=== PATIENT | male | born 1940 | race Caucasian/White ===

== ENCOUNTER 2024-03-01 11:44 | Outpatient (AMB) | payer MEDICARE, SELFPAY ==
--- NOTE | 2024-03-01 11:47 | HO.NEPHOV_ITS ---
Vital Signs 03/01/24 11:48 Height 5 ft 9 in Weight 220 lb 4 oz BMI 32.5 BP 124/70 Blood Pressure Location Lt brachial Position Sitting Pulse 63 Pulse Source Pulse Oximeter Pulse Oximetry (%) 97 Oxygen Delivery Method Room Air Intake Visit Reasons: DX- CKD/ LVM Physical Therapy Technician Required: No Accompanied by: Spouse Allergies No Known Allergies Allergy (Verified 02/29/24 10:12) HPI Comments Details: I had the privilege of seeing Dav moore chronic kidney disease. He has diabetes mellitus hypertension. His serum creatinine had been around 1.7 which has been steadily going up. He had been started on Jardiance by his physician in [place] in October of 2023 due to worsening renal function. He has no history of malignancy but had a tubular adenoma in the cecum in the past. He is known to have benign prostatic hypertrophy. Does not take any excessive nonsteroidal anti-inflammatories. He has been on PPI for a long time. He takes lisinopril hydrochlorothiazide for his hypertension along with amlodipine. He is known to have proteinuria. He is an ex-smoker. He has no history of abdominal aortic aneurysm. He is on statins for dyslipidemia. He denies any nausea, vomiting, diarrhea, chest pain, shortness of breath, proximal nocturnal dyspnea or orthopnea. He has no orthostatic symptoms. He denies recurrent sinusitis, epistaxis, photosensitivity, new skin rashes, new bone or back pain. He denies any coronary artery disease, congestive heart failure, CVA, PA D or NENA. He is concerned about his decline in her renal functions. He did not have any active complaints at the time of this office visit. [facility] Medical History (Updated 04/12/24 @ 13:06 by Chavo Escobar MD) History of torn meniscus of knee Diverticulitis BPH (benign prostatic hyperplasia) Diabetes Pes planus Esophageal reflux Hypertension Hypercholesteremia Surgical History (Updated 02/29/24 @ 10:12 by Hillary Lancaster MA) History of carpal tunnel surgery History of back surgery Hx of hernia repair History of knee surgery H/O colonoscopy Family History (Updated 03/01/24 @ 11:52 by Hillary Lancaster MA) Mother Diabetes Sister Diabetes Social History (Updated 03/01/24 @ 11:52 by Hillary Lancaster MA) Alcohol intake: current Comment: Very little Patient Tobacco Use Status: Former Tobacco user Review of Systems Const All systems reviewed & are unremarkable except as noted in HPI and below Physical Exam Vital Signs: Last Vital Signs Pulse 63 03/01/24 11:48 BP 124/70 03/01/24 11:48 Pulse Ox 97 03/01/24 11:48 Oxygen Delivery Method Room Air 03/01/24 11:48 BMI result Body Mass Index 32.5 Const General: comfortable and no acute distress Orientation/consciousness: patient oriented x3 HEENT Head: Yes normocephalic Mouth: Normal oral and palatal mucosa present Eyes EOM: EOMs intact bilaterally Neck Neck: Yes supple Resp Auscultation: clear to auscultation bilaterally Cardio Jugular venous distension: no JVD Rate: regular rate GI Palpation (GI): Soft to palpation Auscultation: normal bowel sounds General: Yes no CVA tenderness Back/Spine/Pelvis Back: no CVA tenderness Skin General skin exam: no rashes or lesions noted Neuro General: patient oriented x3 and moves all extremities Extrem General: Yes no pedal edema Results Reviewed Nephrology Results: Sodium 137 mmol/L (135-145) 03/01/24 Potassium 4.5 mmol/L (3.3-5.1) 03/01/24 Chloride 102 mmol/L (96-108) 03/01/24 Carbon Dioxide 28 mmol/L (22-29) 03/01/24 BUN 33 mg/dL (9-16) H 03/01/24 Creatinine 2.06 mg/dL (0.5-1.4) H 03/01/24 Calcium 9.8 mg/dL (8.4-10.2) 03/01/24 Urine Protein Negative mg/dL (Neg-Trace) 03/01/24 Urine Creatinine 61.91 mg/dL 03/01/24 Protein/Creatinin Ratio TNP 03/01/24 Renal US 03/15/24 Assessment & Plan Assessment & Plan (1) CKD (chronic kidney disease) stage 3, GFR 30-59 ml/min: Code(s): N18.30 - Chronic kidney disease, stage 3 unspecified Category: Medical Qualifiers: Chronic kidney disease stage 3 subtype: stage 3b (GFR 30-44) Qualified Code(s): N18.32 - Chronic kidney disease, stage 3b (2) Hypertension: Code(s): I10 - Essential (primary) hypertension Category: Medical Qualifiers: Hypertension type: primary hypertension Qualified Code(s): I10 - Essential (primary) hypertension Plan 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 He has history of benign prostatic hypertrophy. His urine output is good. He has no history of vascular disease. He denies any hematuria, sensorineural deafness or any new systemic symptoms. He has been on AVE-inhibitor and diuretics. His blood sugar control is fair. He has been started on Jardiance and early this year. His serum creatinine has gone up and is close to 2. He does not take any excessive nonsteroidal anti-inflammatories and maintain good hydration. I ordered extensive workup. I did not make any medication changes at this visit. I shall consider doing renal biopsy, if needed as a guided by investigations. All his questions answered. Time spent retrieving data, patient encounter and documentation 49 minutes. Follow-up appointment given. Orders: Orders Protein Creatinine Ratio, Ur 03/01/24 N18.30 - Chronic kidney disease, stage 3 unspecified, I10 - Essential (primary) hypertension UA and rflx microscopic 03/01/24 N18.30 - Chronic kidney disease, stage 3 unspecified, I10 - Essential (primary) hypertension Creatinine 03/01/24 N18.30 - Chronic kidney disease, stage 3 unspecified, I10 - Essential (primary) hypertension Electrolytes 03/01/24 N18.30 - Chronic kidney disease, stage 3 unspecified, I10 - Essential (primary) hypertension Calcium 03/01/24 N18.30 - Chronic kidney disease, stage 3 unspecified, I10 - Essential (primary) hypertension Myeloperoxidase Antibody 03/01/24 N18.30 - Chronic kidney disease, stage 3 unspecified, I10 - Essential (primary) hypertension Anti Glomerular Basement Memb 03/01/24 N18.30 - Chronic kidney disease, stage 3 unspecified, I10 - Essential (primary) hypertension Immunofixation Pnl, Serum 03/01/24 N18.30 - Chronic kidney disease, stage 3 unspecified, I10 - Essential (primary) hypertension US renal BI 03/01/24 N18.30 - Chronic kidney disease, stage 3 unspecified, I10 - Essential (primary) hypertension Immunofixation, Random Urine 03/01/24 N18.30 - Chronic kidney disease, stage 3 unspecified, I10 - Essential (primary) hypertension Blood Urea Nitrogen 03/01/24 N18.30 - Chronic kidney disease, stage 3 unspecified, I10 - Essential (primary) hypertension Anti DNA DS Antibody 03/01/24 N18.30 - Chronic kidney disease, stage 3 unspecified, I10 - Essential (primary) hypertension Proteinase 3 PR3 Antibodies 03/01/24 N18.30 - Chronic kidney disease, stage 3 unspecified, I10 - Essential (primary) hypertension Complement C3 03/01/24 N18.30 - Chronic kidney disease, stage 3 unspecified, I10 - Essential (primary) hypertension Complement C4 03/01/24 N18.30 - Chronic kidney disease, stage 3 unspecified, I10 - Essential (primary) hypertension Phospholipase A2 Receptor Pnl 03/01/24 N18.30 - Chronic kidney disease, stage 3 unspecified, I10 - Essential (primary) hypertension US renal doppler 03/01/24 N18.30 - Chronic kidney disease, stage 3 unspecified, I10 - Essential (primary) hypertension Coding Level of Care Code New Pt Level 4 (37860) Diagnoses Stage 3b chronic kidney disease N18.32 Chronic kidney disease stage 3 subtype: stage 3b (GFR 30-44) Primary hypertension I10 Hypertension type: primary hypertension
[2024-03-01 11:48] VITALS: BP 124/70; PULSE 63; O2SAT 97; BMI 32.5
== END 2024-03-01 12:26 | disposition home or self-care (01) ==
PROVIDERS: PCP Internal Medicine; Visit Provider Internal Medicine Nephrology
DX: N18.32 Chronic kidney disease, stage 3b (principal); I10 Essential (primary) hypertension
CPT/HCPCS: 99204

== ENCOUNTER → 2024-03-01 11:44 | Outpatient (BNVA) | payer MEDICARE, SELFPAY | PROVIDERS: PCP Internal Medicine; Visit Provider Internal Medicine Nephrology | DX: I12.9 Hypertensive chronic kidney disease with stage 1 through stage 4 chronic kidney disease, or unspecified chronic kidney disease (principal); N18.30 Chronic kidney disease, stage 3 unspecified | CPT/HCPCS: 99202 ==

== ENCOUNTER 2024-03-01 12:28 | Outpatient (REF) | payer MEDICARE, SELFPAY ==
[2024-03-01 14:31] LABS: Appearance Urine Clear; Color Urine Yellow; Glucose Urine UA >=1000 mg/dL (Negative); Leukocyte Esterase Urine Negative (Negative); Nitrite Urine Negative (Negative); Specific Gravity - Urine 1.015 (1.005-1.025); UMIC TRIGGER UA YES; Urine Blood Negative (Negative); Urine Ketones Negative (Negative); Urine Protein Negative (Neg-Trace)
[2024-03-01 14:39] LABS: Bacteria Urine None Seen (None Seen); Hyaline Casts Urine 0-2 /LPF (0-2); RBC Urine 0-2 /HPF (0-2); Squamous Epithelial Cell Urine 0-2 /HPF (0-2); WBC Urine 0-5 /HPF (0-5)
[2024-03-01 14:53] LABS: Anion Gap 12 (12-20); Blood Urea Nitrogen 33 mg/dL (9-16); Calcium 9.8 mg/dL (8.4-10.2); Carbon Dioxide 28 mmol/L (22-29); Chloride 102 mmol/L (96-108); Estimated Glomerular Filt Rate 31; Potassium 4.5 mmol/L (3.3-5.1); Sodium 137 mmol/L (135-145)
[2024-03-01 15:26] LABS: Creatinine Urine 61.91 mg/dL; Total Protein Urine Random < 7 mg/dL (<12)
[2024-03-02 12:23] LABS: Complement C3 122 mg/dL
[2024-03-02 20:38] LABS: Anti DNA DS Antibody <1 IU/mL; Anti Glomerular Basement Memb <1.0 AI; Myeloperoxidase Antibody <1.0 AI; Proteinase 3 PR3 Antibodies <1.0 AI
[2024-03-05 12:34] LABS: IgA 162 mg/dL (70-320); IgG 626 mg/dL (600-1540); IgM 27 mg/dL (50-300)
[2024-03-07 19:49] LABS: Phospholipase A2 IgG ELISA <4 RU/mL; Phospholipase A2 IgG IFA NEGATIVE (NEGATIVE)
== END 2024-03-01 12:29 | disposition home or self-care (01) ==
LOC: HO.HKASLDS 12:28
PROVIDERS: Visit Provider Internal Medicine Nephrology
DX: I12.9 Hypertensive chronic kidney disease with stage 1 through stage 4 chronic kidney disease, or unspecified chronic kidney disease (principal); N18.30 Chronic kidney disease, stage 3 unspecified
CPT/HCPCS: 80051; 81001; 82310; 82565; 82570; 82784; 83520; 84156; 84520; 86021; 86160; 86225; 86255; 86334; 86335

== ENCOUNTER 2024-03-15 07:40 | Outpatient (REF) | payer MEDICARE, SELFPAY ==
--- NOTE | ~2024-03-15 | US_ITS ---
EXAMINATION: ULTRASOUND RENAL WITH DOPPLER CLINICAL INFORMATION: Chronic renal disease and hypertension. COMPARISON: None. TECHNIQUE: Real-time grayscale, color Doppler, and duplex Doppler evaluation of the kidneys and renal vasculature was performed. FINDINGS: RENAL MEASUREMENTS: Right: 10.5 x 5.4 x 6.1 cm (Sag x AP x TV) Left: 11.9 x 5.8 x 4.8 cm (Sag x AP x TV) Cortical thinning bilaterally. Simple cysts in the lower pole left kidney measuring up to 1.7 cm. No imaging follow-up is recommended. No nephrolithiasis. No hydronephrosis. DOPPLER INTERROGATION: AORTA: Mid aorta: 88 cm/sec RIGHT MAIN RENAL ARTERY: Proximal: 91 cm/sec Mid: 165 cm/sec Distal: 124 cm/sec LEFT MAIN RENAL ARTERY: Proximal: 98 cm/sec Mid: 127 cm/sec Distal: 150 cm/sec RENAL-AORTIC RATIO (RAR): Right: 1.9 Left: 1.7 SEGMENTAL RESISTIVE INDICES: Right: 0.72-0.85 Left: 0.69-0.81 RENAL VEINS: Right: Patent with normal waveform. Left: Patent with normal waveform. US/US renal BI IMPRESSION: No evidence of hemodynamically significant renal artery stenosis. Cortical thinning bilaterally. Elevated resistive indices consistent with chronic medical renal disease. No hydronephrosis.
--- NOTE | ~2024-03-15 | US_ITS ---
EXAMINATION: ULTRASOUND RENAL WITH DOPPLER CLINICAL INFORMATION: Chronic renal disease and hypertension. COMPARISON: None. TECHNIQUE: Real-time grayscale, color Doppler, and duplex Doppler evaluation of the kidneys and renal vasculature was performed. FINDINGS: RENAL MEASUREMENTS: Right: 10.5 x 5.4 x 6.1 cm (Sag x AP x TV) Left: 11.9 x 5.8 x 4.8 cm (Sag x AP x TV) Cortical thinning bilaterally. Simple cysts in the lower pole left kidney measuring up to 1.7 cm. No imaging follow-up is recommended. No nephrolithiasis. No hydronephrosis. DOPPLER INTERROGATION: AORTA: Mid aorta: 88 cm/sec RIGHT MAIN RENAL ARTERY: Proximal: 91 cm/sec Mid: 165 cm/sec Distal: 124 cm/sec LEFT MAIN RENAL ARTERY: Proximal: 98 cm/sec Mid: 127 cm/sec Distal: 150 cm/sec RENAL-AORTIC RATIO (RAR): Right: 1.9 Left: 1.7 SEGMENTAL RESISTIVE INDICES: Right: 0.72-0.85 Left: 0.69-0.81 RENAL VEINS: Right: Patent with normal waveform. Left: Patent with normal waveform. US/US renal doppler IMPRESSION: No evidence of hemodynamically significant renal artery stenosis. Cortical thinning bilaterally. Elevated resistive indices consistent with chronic medical renal disease. No hydronephrosis.
== END 2024-03-15 07:41 | disposition home or self-care (01) ==
LOC: HO.US 07:40
PROVIDERS: Visit Provider Internal Medicine Nephrology
DX: I12.9 Hypertensive chronic kidney disease with stage 1 through stage 4 chronic kidney disease, or unspecified chronic kidney disease (principal); N18.30 Chronic kidney disease, stage 3 unspecified
CPT/HCPCS: 76775; 93975

== ENCOUNTER 2024-04-12 13:37 | Outpatient (AMB) | payer MEDICARE, SELFPAY ==
--- NOTE | 2024-04-12 13:04 | HO.NEPHOV ---
Vital Signs 04/12/24 13:42 Height 5 ft 9 in Weight 221 lb 4 oz BMI 32.7 BP 122/64 Blood Pressure Location Lt brachial Position Sitting Pulse 75 Pulse Source Pulse Oximeter Pulse Oximetry (%) 97 Oxygen Delivery Method Room Air Intake Visit Reasons: 5 wks follow up/ Conf Auto Detailer Required: No Accompanied by: Spouse Allergies No Known Allergies Allergy (Verified 04/12/24 13:45) HPI Comments Details: I had the privilege of seeing Dav in follow-up of his chronic kidney disease and hypertension. He has diabetes mellitus . His serum creatinine had been around 1.7 which has been steadily going up. He had been started on Jardiance by his physician in [place] in October of 2023 due to worsening renal function. He has no history of malignancy but had a tubular adenoma in the cecum in the past. He is known to have benign prostatic hypertrophy. Does not take any excessive nonsteroidal anti-inflammatories. He has been on PPI for a long time. He takes lisinopril - hydrochlorothiazide for his hypertension along with amlodipine. He is known to have proteinuria. He is an ex-smoker. He has no history of abdominal aortic aneurysm. He is on statins for dyslipidemia. He denies any nausea, vomiting, diarrhea, chest pain, shortness of breath, proximal nocturnal dyspnea or orthopnea. He has no orthostatic symptoms. He denies recurrent sinusitis, epistaxis, photosensitivity, new skin rashes, new bone or back pain. He denies any coronary artery disease, congestive heart failure, CVA, PA D or NENA. He is concerned about his decline in her renal functions. He did not have any active complaints at the time of this office visit [facility] Medical History (Updated 04/12/24 @ 13:18 by Chavo Escobar MD) History of torn meniscus of knee Diverticulitis BPH (benign prostatic hyperplasia) Diabetes Pes planus Esophageal reflux Hypertension Hypercholesteremia Surgical History History of carpal tunnel surgery History of back surgery Hx of hernia repair History of knee surgery H/O colonoscopy Family History Mother Diabetes Sister Diabetes Social History Alcohol intake: current Comment: Very little Patient Tobacco Use Status: Former Tobacco user Review of Systems Const All systems reviewed & are unremarkable except as noted in HPI and below Physical Exam Vital Signs: Last Vital Signs Pulse 75 04/12/24 13:42 BP 122/64 04/12/24 13:42 Pulse Ox 97 04/12/24 13:42 Oxygen Delivery Method Room Air 04/12/24 13:42 BMI result Body Mass Index 32.7 Const General: comfortable and no acute distress Orientation/consciousness: patient oriented x3 HEENT Head: Yes normocephalic Mouth: Normal oral and palatal mucosa present Eyes EOM: EOMs intact bilaterally Neck Neck: Yes supple Resp Auscultation: clear to auscultation bilaterally Cardio Jugular venous distension: no JVD Rate: regular rate GI Palpation (GI): Soft to palpation Auscultation: normal bowel sounds General: Yes no CVA tenderness Back/Spine/Pelvis Back: no CVA tenderness Skin General skin exam: no rashes or lesions noted Neuro General: patient oriented x3 and moves all extremities Extrem General: Yes no pedal edema Results Reviewed Nephrology Results: Sodium 137 mmol/L (135-145) 03/01/24 Potassium 4.5 mmol/L (3.3-5.1) 03/01/24 Chloride 102 mmol/L (96-108) 03/01/24 Carbon Dioxide 28 mmol/L (22-29) 03/01/24 BUN 33 mg/dL (9-16) H 03/01/24 Creatinine 2.06 mg/dL (0.5-1.4) H 03/01/24 Calcium 9.8 mg/dL (8.4-10.2) 03/01/24 Urine Protein Negative mg/dL (Neg-Trace) 03/01/24 Urine Creatinine 61.91 mg/dL 03/01/24 Protein/Creatinin Ratio TNP 03/01/24 Renal US 03/15/24 Assessment & Plan Assessment & Plan (1) CKD stage 3b, GFR 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 He has history of benign prostatic hypertrophy. His urine output is good. He has no history of vascular disease. He denies any hematuria, sensorineural deafness or any new systemic symptoms. He has been on AVE-inhibitor and diuretics. His blood sugar control is fair. He has been started on Jardiance and early this year. His serum creatinine has gone up and is close to 2. He does not take any excessive nonsteroidal anti-inflammatories and maintain good hydration. His extensive workup had been done yielding. I reduced his losartan to 50 mg and can c/w current hydrochlorothiazide. I may have to switch his amlodipine to nifedipine if his BP goes up. I shall increase in Jardiance and D/C metformin if possible. I did not make any other medication changes at this visit. I shall do a 24 urine collection for creatinine clearance in the next subsequent visits. All his questions answered. Follow-up appointment given. Orders: Orders Electrolytes Today I10 - Essential (primary) hypertension, N18.32 - Chronic kidney disease, stage 3b, N28.1 - Cyst of kidney, acquired Creatinine Today I10 - Essential (primary) hypertension, N18.32 - Chronic kidney disease, stage 3b, N28.1 - Cyst of kidney, acquired Blood Urea Nitrogen Today I10 - Essential (primary) hypertension, N18.32 - Chronic kidney disease, stage 3b, N28.1 - Cyst of kidney, acquired Medications: New hydrochlorothiazide 12.5 mg PO DAILY 30 tabs 4RF losartan 50 mg PO DAILY 30 tabs 6RF Coding Level of Care Code Est Pt Level 4 (58500) Diagnoses CKD stage 3b, GFR 30-44 ml/min N18.32 Primary hypertension I10 Hypertension type: primary hypertension Renal cyst N28.1
[2024-04-12 13:42] VITALS: BP 122/64; PULSE 75; O2SAT 97; BMI 32.7
== END 2024-04-12 14:18 | disposition home or self-care (01) ==
PROVIDERS: PCP Internal Medicine; Visit Provider Internal Medicine Nephrology
DX: N18.32 Chronic kidney disease, stage 3b (principal); I10 Essential (primary) hypertension; N28.1 Cyst of kidney, acquired
CPT/HCPCS: 99214

== ENCOUNTER → 2024-04-12 13:37 | Outpatient (BNVA) | payer MEDICARE, SELFPAY | PROVIDERS: PCP Internal Medicine; Visit Provider Internal Medicine Nephrology | DX: I12.9 Hypertensive chronic kidney disease with stage 1 through stage 4 chronic kidney disease, or unspecified chronic kidney disease (principal); N18.32 Chronic kidney disease, stage 3b; N28.1 Cyst of kidney, acquired | CPT/HCPCS: 99212 ==

== ENCOUNTER 2024-05-08 10:24 | Outpatient (REF) | payer MEDICARE, SELFPAY ==
[2024-05-08 18:09] LABS: Appearance Urine Clear; Color Urine Yellow; Glucose Urine UA >=1000 mg/dL (Negative); Leukocyte Esterase Urine Negative (Negative); Nitrite Urine Negative (Negative); PH 6.5 (5.0-9.0); UMIC TRIGGER UA YES; Urine Blood Negative (Negative); Urine Ketones Negative (Negative); Urine Protein Negative (Neg-Trace)
[2024-05-08 18:14] LABS: Bacteria Urine None Seen (None Seen); Hyaline Casts Urine 0-2 /LPF (0-2); RBC Urine 0-2 /HPF (0-2); Squamous Epithelial Cell Urine 0-2 /HPF (0-2); WBC Urine 0-5 /HPF (0-5)
[2024-05-08 18:15] LABS: Anion Gap 12 (12-20); Blood Urea Nitrogen 34 mg/dL (9-16); Carbon Dioxide 26 mmol/L (22-29); Chloride 106 mmol/L (96-108); Estimated Glomerular Filt Rate 34; Potassium 4.3 mmol/L (3.3-5.1); Sodium 140 mmol/L (135-145)
== END 2024-05-08 10:25 | disposition home or self-care (01) ==
LOC: HO.HKASLDS 10:24
PROVIDERS: Visit Provider Internal Medicine Nephrology
DX: I12.9 Hypertensive chronic kidney disease with stage 1 through stage 4 chronic kidney disease, or unspecified chronic kidney disease (principal); N18.32 Chronic kidney disease, stage 3b; N28.1 Cyst of kidney, acquired
CPT/HCPCS: 36415; 80051; 81001; 82565; 84520

== ENCOUNTER 2024-05-24 14:39 | Outpatient (AMB) | payer MEDICARE, SELFPAY ==
[2024-05-24 15:11] VITALS: BP 122/60; PULSE 71; O2SAT 96; BMI 32.2
--- NOTE | 2024-05-24 15:11 | HO.NEPHOV_ITS ---
Vital Signs 05/24/24 15:11 Height 5 ft 9 in Weight 218 lb 4 oz BMI 32.2 BP 122/60 Blood Pressure Location Lt brachial Position Sitting Pulse 71 Pulse Source Pulse Oximeter Pulse Oximetry (%) 96 Oxygen Delivery Method Room Air Intake Visit Reasons: 1 mon follow up/CONF French Binding Folder Required: No Accompanied by: Spouse Allergies No Known Allergies Allergy (Verified 05/24/24 15:13) HPI Comments Details: I had the privilege of seeing Dav in follow-up of his chronic kidney disease and hypertension. He has diabetes mellitus . His serum creatinine had been around 1.7 which has been steadily going up. He had been started on Jardiance by his physician in [place] in October of 2023 due to worsening renal function. He has no history of malignancy but had a tubular adenoma in the cecum in the past. He is known to have benign prostatic hypertrophy. Does not take any excessive nonsteroidal anti-inflammatories. He has been on PPI for a long time. He takes lisinopril - hydrochlorothiazide for his hypertension along with amlodipine. He is known to have proteinuria. He is an ex-smoker. He has no history of abdominal aortic aneurysm. He is on statins for dyslipidemia. He denies any nausea, vomiting, diarrhea, chest pain, shortness of breath, proximal nocturnal dyspnea or orthopnea. He has no orthostatic symptoms. He denies recurrent sinusitis, epistaxis, photosensitivity, new skin rashes, new bone or back pain. He denies any coronary artery disease, congestive heart failure, CVA, PA D or NENA. He did not have any active complaints at the time of this office visit [facility] Medical History (Updated 04/12/24 @ 13:18 by Chavo Escobar MD) History of torn meniscus of knee Diverticulitis BPH (benign prostatic hyperplasia) Diabetes Pes planus Esophageal reflux Hypertension Hypercholesteremia Surgical History History of carpal tunnel surgery History of back surgery Hx of hernia repair History of knee surgery H/O colonoscopy Family History Mother Diabetes Sister Diabetes Social History Alcohol intake: current Comment: Very little Patient Tobacco Use Status: Former Tobacco user Review of Systems Const All systems reviewed & are unremarkable except as noted in HPI and below Physical Exam Vital Signs: Last Vital Signs Pulse 71 05/24/24 15:11 BP 122/60 05/24/24 15:11 Pulse Ox 96 05/24/24 15:11 Oxygen Delivery Method Room Air 05/24/24 15:11 BMI result Body Mass Index 32.2 Const General: comfortable and no acute distress Orientation/consciousness: patient oriented x3 HEENT Head: Yes normocephalic Mouth: Normal oral and palatal mucosa present Eyes EOM: EOMs intact bilaterally Neck Neck: Yes supple Resp Auscultation: clear to auscultation bilaterally Cardio Jugular venous distension: no JVD Rate: regular rate GI Palpation (GI): Soft to palpation Auscultation: normal bowel sounds General: Yes no CVA tenderness Back/Spine/Pelvis Back: no CVA tenderness Skin General skin exam: no rashes or lesions noted Neuro General: patient oriented x3 and moves all extremities Results Reviewed Nephrology Results: Sodium 140 mmol/L (135-145) 05/08/24 Potassium 4.3 mmol/L (3.3-5.1) 05/08/24 Chloride 106 mmol/L (96-108) 05/08/24 Carbon Dioxide 26 mmol/L (22-29) 05/08/24 BUN 34 mg/dL (9-16) H 05/08/24 Creatinine 1.88 mg/dL (0.5-1.4) H 05/08/24 Calcium 9.8 mg/dL (8.4-10.2) 03/01/24 Urine Protein Negative mg/dL (Neg-Trace) 05/08/24 Urine Creatinine 61.91 mg/dL 03/01/24 Protein/Creatinin Ratio TNP 03/01/24 Renal US 03/15/24 Assessment & Plan Assessment & Plan (1) Renal cyst: Code(s): N28.1 - Cyst of kidney, acquired Category: Medical (2) CKD (chronic kidney disease) stage 3, GFR 30-59 ml/min: Code(s): N18.30 - Chronic kidney disease, stage 3 unspecified Category: Medical Qualifiers: Chronic kidney disease stage 3 subtype: stage 3b (GFR 30-44) Qualified Code(s): N18.32 - Chronic kidney disease, stage 3b (3) Hypertension: Code(s): I10 - Essential (primary) hypertension Category: Medical Qualifiers: Hypertension type: primary hypertension Qualified Code(s): I10 - Essential (primary) hypertension Kira Demarco has proteinuric 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 He has history of benign prostatic hypertrophy. His urine output is good. He has no history of vascular disease. He denies any hematuria, sensorineural deafness or any new systemic symptoms. He has been on AVE-inhibitor and diuretics. His blood sugar control is fair. He is on Jardiance and early this year. His serum creatinine had gone up to 2. He does not take any excessive nonsteroidal anti- inflammatories and maintain good hydration. His extensive workup had been done yielding. I reduced his losartan to 50 mg and can c/w current hydrochlorothiazide. I did not make any other medication changes at this visit. I shall do a 24 urine collection for creatinine clearance in the next subsequent visits. All his questions answered. Follow-up appointment given Orders: Orders Creatinine Today I10 - Essential (primary) hypertension, N18.32 - Chronic kidney disease, stage 3b, N28.1 - Cyst of kidney, acquired Electrolytes Today I10 - Essential (primary) hypertension, N18.32 - Chronic kidney disease, stage 3b, N28.1 - Cyst of kidney, acquired Blood Urea Nitrogen Today I10 - Essential (primary) hypertension, N18.32 - Chronic kidney disease, stage 3b, N28.1 - Cyst of kidney, acquired Coding Level of Care Code Est Pt Level 4 (53142) Diagnoses Renal cyst N28.1 Stage 3b chronic kidney disease N18.32 Chronic kidney disease stage 3 subtype: stage 3b (GFR 30-44) Primary hypertension I10 Hypertension type: primary hypertension
== END 2024-05-24 15:47 | disposition home or self-care (01) ==
PROVIDERS: PCP Internal Medicine; Visit Provider Internal Medicine Nephrology
DX: N28.1 Cyst of kidney, acquired (principal); N18.32 Chronic kidney disease, stage 3b; I10 Essential (primary) hypertension
CPT/HCPCS: 99214

== ENCOUNTER → 2024-05-24 14:39 | Outpatient (BNVA) | payer MEDICARE, SELFPAY | PROVIDERS: PCP Internal Medicine; Visit Provider Internal Medicine Nephrology | DX: I12.9 Hypertensive chronic kidney disease with stage 1 through stage 4 chronic kidney disease, or unspecified chronic kidney disease (principal); N18.30 Chronic kidney disease, stage 3 unspecified; N28.1 Cyst of kidney, acquired | CPT/HCPCS: 99212 ==

== ENCOUNTER 2025-01-01 11:05 | Outpatient (REF) | payer MEDICARE, SELFPAY ==
--- OUTSIDE RECORDS SUMMARY | 2025-01-01 13:38 | XMS_ITS | Encounter Summary ---
Author Name [facility] [place] [facility] [place] Address [address] [place] [address] Care Team Providers Care Housing Quality Standard Inspector Name Role Phone ANDERS MCCORMICK Primary Care Provider UnavailCARI Nevarez Primary Care Provider Annette riggs Insurance Providers: All historical and current Section Date Range: From patient's date of to the date document was created. This section includes the names of all active insurance providers for the patient. Insurance Provider Type of Coverage Plan Name Start of Policy Coverage End of Policy Coverage Group Number Member ID Insurance Provider's Telephone Number Policy Paniagua's Name Patient's Relationship to Policy [place] [employer] [place] [employer]CR ([facility]) Oct 20, 2009 MEDICAR E ADV [id number] Ry SEGURA PATIENT [facility] ([facility]) MEDICARE ADVANTAGE MCR ([facility]) Oct 20, 2009 [id number] Ry SEGURA PATIENT Selected Encounter This section includes the information on record at [place] for the Encounter. Date/Time Encounter Type Encounter Description Reason Provider Source Dec 26, 2024 09:00 AM OFFICE O/P EST LOW 20 MIN PODIATRY ICD-10-CM L60.3 Nail dystrophy URVASHI GOMEZ Encounter Template Text not used by VA Assessments - Encounter Diagnoses This section includes the primary and secondary diagnoses documented for the Encounter. Date/Time Primary/Secondary Diagnosis Diagnosis Name Provider Source Dec 26, 2024 09:37 AM PRIMARY Nail dystrophy URVASHI GOMEZ [place] Dec 26, 2024 09:37 AM SECONDARY Ingrowing nail URVASHI GOMEZ [place] Dec 26, 2024 09:37 AM SECONDARY Pain in left toe(s) URVASHI GOMEZ [place] Dec 26, 2024 09:37 AM SECONDARY Pain in right toe(s) URVASHI GOMEZ [place] Dec 26, 2024 09:37 AM SECONDARY Type 2 diabetes w diabetic peripheral angiopath w/o gangrene URVASHI GOMEZ [place] Plan of Treatment: Future Appointments (+ 6 months) and Future Tests (+/- 45 days) The Plan of Treatment section includes future care activities for the patient from all [place] [facility] This section includes future appointments and future orders which are active, pending or scheduled. Future Appointments This section includes appointments that were scheduled to occur 6 months from the date of the Encounter, up to a maximum of 20 appointments. The data comes from all [place] treatment facilities. Appointment Date/Time Appointment Type Appointme nt Facility Name Dec 31, 2024 09:00 AM AMBULATORY - MEDICINE [facility] Jan 16, 2025 09:00 AM AMBULATORY - MEDICINE [facility] May 01, 2025 09:00 AM AMBULATORY - MEDICINE [facility] Social History: Smoking Status (Most current) and Tobacco Use (All prior to encounter date) This section includes the most current, and the historical, smoking and tobacco- related health factors from the [place] facility where the Encounter took place. Current Smoking Status This section includes the most current smoking, or tobacco-related health factor, from the [place] facility where the Encounter took place. Date/Time Current Smoking Status Comment Lindsey grijalva Jan 12, 2024 10:00 AM VA-TOBACCO NEVER USED [place] Tobacco Use History This section includes a history of the smoking, or tobacco-related health factors, that were collected on or before the date of the Encounter. The data comes from the [place] facility where the Encounter took place. Date/Time Smoking Status/Tobacco Use Comment F [facility] Jul 07, 2022 10:00 AM VA-TOBACCO FORMER USER [place] Jul 07, 2022 10:00 AM [place]-TO[place]ACCO QUIT 15 YRS OR MORE [place] Jul 07, 2021 01:30 PM VA-TOBACCO FORMER USER [place] Jul 07, 2021 01:30 PM [place]-TO[place]ACCO QUIT 15 YRS OR MORE [place] Apr 13, 2019 04:47 PM VA-TOBACCO FORMER USER [place] Apr 13, 2019 04:47 PM VA-TOBACCO QUIT 15 YRS OR MORE [place] May 05, 2018 05:56 AM QUIT TOBACCO USE > 7 YEARS AGO Quit in [place] Advance Directives: All historical and current Section Date Range: From patient's date of to the date document was created. This section includes ALL of a patient's completed or amended [place] Advance and Rescinded Directives. The entries below indicate that a directive exists for the patient, but an actual copy is not included with this document. The data comes from all [place] facilities. Date Advance Directives Provider Source Apr 26, [address] [facility] Radiology Reports: +/- 30 days of the encounter Radiology Reports For cases when an order for radiology services may have been completed prior to the date of the Encounter, the report list includes the Radiology Reports that were completed up to 30 days before dateof the Encounter. For cases when an order for radiology services may have been completed after the date of the Encounter, the report list also includes the Radiology Reports that were completed up to30 days after date of the Encounter. The data comes from all [place] treatment facilities. Date/Time Radiology Report Provider Source Dec 04, 2024 05:29 PM MRI ANKLE (RIGHT) WITHOUT CONTRAST: EMILY SEGURA [id number] M Exm Date: DEC 04, 2024@17:29 Req Phys: EMILY YOUNG Pat Loc: [facility] PODIATRY NAIL BOROUGH COORDINATOR (Req'g L Img Loc: [facility] Service: [place] [address] (Case [id number] COMPLETE) MRI ANKLE (RIGHT) WITHOUT CONTRAS(MRI Detailed) CPT:46779 Proc Modifiers : RIGHT Reason for Study: ankle pain Clinical History: Report Status: Verified Date Reported: DEC 14, 2024 Date Verified: DEC 14, 2024 Biophysics Scientist E-Sig:/ES/Yash Woodruff MD Report: MRI right ankle Multiplanar spin-echo pulse sequences were performed to the right ankle Impression: Marker ramirez site patient's symptoms posterior medially right ankle Examination limited by motion artifact. Subcutaneous edema is seen at the soft tissues of the visualized right ankle. Anterior and posterior tibiofibular and talofibular ligaments intact. Disruption calcaneofibular ligament. Tibialis posterior flexor digitorum longus and hallucis longus tendons intact. Intact peroneus longus and brevis tendons. Deltoid ligament intact. Mild degenerative changes seen. No fracture Pes planus deformity. Small plantar calcaneal spur. Plantar fascia unremarkable. Achilles tendon unremarkable. Mild bone marrow edema is seen involving the tarsal sinus. Primary Diagnostic Code: NO ALERT REQUIRED Primary Interpreting Staff: Yash Woodruff MD, Radiologist (Biophysics Scientist) /YASH SCHULTZ MD [facility] Encounter Notes: All associated encounter notes This section contains the clinical notes associated to the Encounter. Date/Time Encounter Note(s) Provider Source Dec 26, 2024 09:00 AM PODIATRY NOTE: LOCAL TITLE: PODIATRY NOTE STANDARD TITLE: PODIATRY NOTE DATE OF NOTE: DEC 26, 2024@09:00 ENTRY DATE: DEC 26, 2024@09:00:07 AUTHOR: URVASHI GOMEZ EXP COSIGNER: URGENCY: STATUS: COMPLETED NOTE: HAS RECEIVED BOTH COVID VACCINE DOSES + 2 BOOSTERS AT [facility] LAST SEEN FOR TREATMENT: 06/06/2024 S: Pt. is an 84 yo alert WDWN CAUC MALE who is seen for continued podiatric examination & care for treatment of a presenting complaint of an area that has been intermittently infected and points to the medial nail border-proximal nail groove RT GREAT TOE. Onset of symptoms has been several days due to this being a recent condition that has not been evaluated. Duration of symptoms is intermittent with periods of exacerbation and remission. Description of symptoms is of an sharp radiating nature. Contributing factors are: Unknown but may be related to shoes and increased activity. *DENIES ANY RECENT CHANGES IN MEDS UPON QUESTIONING TODAY- SEE RECONCILIATION PERFORMED THIS DATE BELOW DENIES TOBACCO *NOTE: A1C= 6.4 (LAST TAKEN: 09/2022) FBS=DNP RISK =2 HEIGHT:245.2 lb [111.5 kg] (04/26/2017 15:10) WEIGHT:67.75 in [172.1 cm] (04/26/2017 15:10) PMH: Active problems - Computerized Problem List is the source for the following: NOTE: REVIEWED ABOVE NOTING NO CHANGES SINCE PREVIOUS VISIT(TYPE II DM) *PLEASE SEE PROBLEM LIST TEMPLATE FOR COMPLETE LIST NEEDED. O: There are no gross LE changes in status other than an increased looseness at the STJ & TNJ RT which is correctable BUT would need a brace as well as custom orthoses. SKIN COLOR AND TEXT ARE WNL AND TEMP IS DIMINISHED WARM TO COOL PROXIMAL TO DISTAL. THERE ARE NO PAINFUL HYPERKERATOSIS NOTED AT THIS TIME. NAILS IN NEED OF ATTENTION : 1-2-3-4-5 BILATERAL VASCULAR: DP & PT PULSES ARE ABSENT NON-PALPABLE BILATERAL. CFT IS <3 SEC X 10. THERE ARE NO VARICES NOTED BUT THERE IS +3 EDEMA MUSCULOSKELETAL: Exam reveals muscle strength and tone to be equal & symmetrical bilaterally & diminished -ESPECIALLY RIGHT WITH A LIGAMENTOUS LAXITY PTT for an individual of this age and present physical-medical condition. There is pain free ROM at all joints distal to and including the ankle OTHER THAN AT THE NAVICULAR WHICH IS LOOSE . 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 NEUROLOGICAL: Exam reveals S/D, vibratory, light touch & proprioception sensations to be equal & symmetrical bilaterally & WNL for an individual of this age and present physical-medical status. Protective sensation utilizing a Nekoma-Yash lOg monofilament is 10/10 bilateral. A: Clinical Impression is a painful ONYCHOCRYPTIC NAILS(2-3-4-5 BILAT & DYSTROPHIC HALLUX NAILS BILAT) IN THE PRESENCE OF DM-PVD AND PAIN WHICH IS 2- 3/10 PRIOR TO TREATMENT & 0/10 AFTER.SPECIAL ATTENTION LATERAL LEFT HALLUX NAIL SPICULE REMOVAL P: Treatment consists of trimming-reduction of all nails via manual and electric means with excision of the offending nail borders and thinning of the nail plates to the point of imminent bleeding and special attention to MEDIAL LT HALLUX NAIL BORDER. DEBRIDEMENT-REDUCTION OF DYSTROPHIC HALLUX NAIL SBILAT REVIEWED HOME FOOT CARE FEET ARE IN EXCELLENT CONDITION AND I PROVIDED HIM WITH WRITTEN RECOMMENDATIONS FOR FOOT CARE TO BE REVIEWED AT HOME (FOOT CARE TIPS). *DISCUSSED NEW PROTOCOLS AND CALLED [facility] TODAY FOR RESCHEDULING RTC: 05/01/@ 9AM) I DISCUSSED THE FINDINGS & PLAN WITH PATIENT (UNCHANGED SINCE PREVIOUS VISIT) & PATIENT AGREES AND UNDERSTANDS PLAN-RECEIVED MIRROR ATEMPTED TO DISPENSE SHOES 12XEEEE AND WERE TOO NARROW AND SHALL RE-ORDER 5E INSTEAD ALSO DISCUSSED HIS [place] RE: RT ANKLE WHICH IS VERY PAINFUL AND I HAVE SUGGESTED THAT HE BE SEEN AT [facility] IN [place] BY DR. CYNDEE MUÑOZ AND HE IS FAMILIAR WITH HIM HE IS A PATIENT THERE AND WILL DISCUSS WITH DR. MCCORMICK RE: REFERRAL. Medication Reconciliation: PERFORMED TODAY - SEE BELOW. Outpatient: Has the patient been taking medications as documented in the EMLR? YES: The patient has been taking medications as documented in the EMLR. Essential Medication List for Review used to complete this medication reconciliation. INCLUDED IN THIS LIST: Alphabetical list of active outpatient prescriptions dispensed from this VA (local) and dispensed from another [place] or DoD facility (remote) as well as inpatient orders (local, pending and active), local clinic medications, locally documented non-VA medications, and local prescriptions that have or been discontinued in the past 90 days. - All changes in medications, including all non-VA/Herbal/OTC medications were entered into CPRS. - If there were any medications the patient should no longer take, they were discontinued. - The patient/caregiver was instructed to update this list, discard old lists, and take this list to the next appointment, whether with a VA or non-VA provider. JLV Link Data on this list may not be complete. Please check [email or web address]. Allergies/ADRs (Tool #5) FACILITY ALLERGY/ADR -------- [facility] No Known Allergies [facility] NO KNOWN ALLERGIES Med Recon NoGlossary (Tool #1) INCLUDED IN THIS LIST: Alphabetical list of active outpatient prescriptions dispensed from this VA (local) and dispensed from another VA or DoD facility (remote) as well as inpatient orders (local pending and active), local clinic medications, locally documented non-VA medications, and local prescriptions that have or been discontinued in the past 90 days. Non-VA Meds Last Documented On: Jul 07, 2021 NOTE The display of VA prescriptions dispensed from another [place] or [facility] facility (remote) is limited to active outpatient prescription entries matched to National Drug File at the originating site and may not include some items such as investigational drugs, compounds, etc. NOT INCLUDED IN THIS LIST: Medications self-entered by the patient into personal health records (i.e. [employer]) are NOT included in this list. Non-VA medications documented outside this [place], remote inpatient orders (regardless of status) and remote clinic medications are NOT included in this list. The patient and provider must always discuss medications the patient is taking, regardless of where the medication was dispensed or obtained. Non-VA ALOGLIPTIN 12.5MG TAB TAKE ONE TABLET BY MOUTH ONCE DAILY Patient wants to buy from Non-[place] pharmacy. Non-VA AMLODIPINE BESYLATE 10MG TAB TAKE ONE TABLET BY MOUTH EVERY DAY filled through [facility] Remote AMLODIPINE BESYLATE 10MG TAB TAKE ONE TABLET BY MOUTH DAILY FOR BLOOD PRESSURE Last Filled: 11/12/24 (Active at [facility]) Rx Expiration Date: 01/17/25 Days Supply: 90 Non-VA ASPIRIN 81MG EC TAB TAKE ONE TABLET BY MOUTH DAILY Patient wants to buy from Non-[place] pharmacy. Remote ATORVASTATIN CA 80MG TAB TAKE ONE TABLET BY MOUTH AT BEDTIME FOR CHOLESTEROL - REPLACES ROSUVASTATIN Last Filled: 11/12/24 (Active at [facility]) Rx Expiration Date: 01/17/25 Days Supply: 90 Non-VA ATORVASTATIN CALCIUM 80MG TAB TAKE ONE TABLET BY MOUTH AT BEDTIME Filled by [facility] Non-VA CYANOCOBALAMIN TAB TAKE BY MOUTH ONCE DAILY Patient wants to buy from Non-[place] pharmacy. Medication prescribed by Non-[place] provider. OUTPT EMPAGLIFLOZIN 25MG TAB (Status = Active) TAKE ONE-HALF TABLET BY MOUTH ONCE DAILY FOR TYPE 2 DIABETES MELLITUS Rx# [id number] Last Released: 10/26/24 Qty/Days Supply: Rx Expiration Date: 04/07/25 Refills Remainin Indication: FOR TYPE 2 DIABETES MELLITUS Non-VA FINASTERIDE 5MG TAB TAKE ONE TABLET BY MOUTH EVERY DAY filled by [facility] OUTPT HYDROCHLOROTHIAZIDE 25MG TAB (Status = Active) TAKE ONE-HALF TABLET BY MOUTH ONCE DAILY FOR HIGH BLOOD PRESSURE Rx# [id number] Last Released: 09/14/24 Qty/Days Supply: Rx Expiration Date: 09/07/25 Refills Remainin Indication: FOR HIGH BLOOD PRESSURE Non-VA KETOCONAZOLE 2% CREAM APPLY A SMALL AMOUNT TOPICALLY ONCE DAILY Patient wants to buy from Non-[place] pharmacy. OUTPT LIDOCAINE 5% PATCH (Status = Active) APPLY 1 PATCH TOPICALLY ONCE DAILY FOR NERVE PAIN (LEAVE PATCH ON FOR 12 HOURS, THEN REMOVE PATCH) Rx# [id number] Last Released: 07/03/24 Qty/Days Supply: Rx Expiration Date: 06/28/25 Refills Remainin Indication: FOR NERVE PAIN OUTPT LOSARTAN 50MG TAB (Status = Active) TAKE ONE TABLET BY MOUTH ONCE DAILY FOR BLOOD PRESSURE/HEART Rx# [id number] Last Released: 12/19/24 Qty/Days Supply: Rx Expiration Date: 09/07/25 Refills Remainin Indication: FOR HIGH BLOOD PRESSURE Non-VA MAGNESIUM OXIDE TAB TAKE BY MOUTH TWICE DAILY Medication prescribed by Non-[place] provider. Non-VA METFORMIN HCL 1000MG TAB TAKE ONE TABLET BY MOUTH TWICE DAILY BEFORE A [facility]AL [facility] Non-VA OMEPRAZOLE 20MG EC CAP TAKE 1 CAPSULE BY MOUTH EVERY MORNING 30 MINUTES BEFORE BREAKFAST Filled by [facility] OUTPT OMEPRAZOLE 20MG EC CAP (Status = Active) TAKE ONE CAPSULE BY MOUTH EVERY MORNING 30 MINUTES BEFORE BREAKFAST FOR HEARTBURN Rx# [id number] Last Released: 12/19/24 Qty/Days Supply: Rx Expiration Date: 12/18/25 Refills Remainin Indication: FOR HEARTBURN SUPPLIES Suicide Screen: C-SSRS Screening [place]-Suicide Severity Rating Scale (C-SSRS Screener) 1. Over the past month, have you wished you were or wished you could go to sleep and not wake up? No 2. Over the past month, have you had any actual thoughts of killing yourself? No 3. Over the past month, have you been thinking about how you might do this? Response not required due to responses to other questions. 4. Over the past month, have you had these thoughts and had some intention of acting on them? Response not required due to responses to other questions. 5. Over the past month, have you started to work out or worked out the details of how to kill yourself? Response not required due to responses to other questions. 6. If yes, at any time in the past month did you intend to carry out this plan? Response not required due to responses to other questions. 7. In your lifetime, have you ever done anything, started to do anything, or prepared to do anything to end your life (for example, collected pills, obtained a gun, gave away valuables, went to the roof but didn't jump)? No 8. If YES, was this within the past 3 months? Response not required due to responses to other questions. /oniel/ URVASHI GOMEZ DPM AUTOMOTIVE SALES MANAGER Signed: 12/26/2024 09:39 URVASHI GOMEZ
--- OUTSIDE RECORDS SUMMARY | 2025-01-01 13:38 | XMS_ITS ---
Author Name [facility] Organization [facility] [place] Address [address] [place] [address] Care Team Providers Care Electroencephalogram Technologist Name Role Phone ANDERS MCCORMICK Primary Care Provider CARI Mohr Primary Care Provider Annette riggs Insurance Providers: [...] [place] [employer] [place] [employer] ADVANTAGE MCR ([facility]) Oct 20, 2009 MEDICAR E ADV [id number] [phone] Ry SEGURA PATIENT [facility] ([facility]) MEDICARE ADVANTAGE MCR ([facility]) Oct 20, 2009 [id number] Ry SEGURA PATIENT Selected Encounter This section includes the information on record at [place] for the Encounter. Date/Time Encounter Type Encounter Description Reason Pro vider Source Jul 09, 2024 12:39 PM Outpatient Encounter ADMIN PAT ACTIVTIES (MASNONCT) IHE Encounter Template Text not used by VA Plan of Treatment: Future Appointments (+ 6 months) and Future Tests (+/- 45 days) The Plan of Treatment section includes future care activities for the patient from all VA treatmentfacilities. This section includes future appointments and future orders which are active, pending or scheduled. Future Appointments This section includes appointments that were scheduled to occur 6 months from the date of the Encounter, up to a maximum of 20 appointments. The data comes from all [facility]. Appointment Date/Time Appointment Type Appointme nt Facility Name Oct 30, 2024 11:00 AM AMBULATORY - MEDICINE [facility] Nov 13, 2024 01:30 PM AMBULATORY - NONE [facility] Nov 21, 2024 12:45 PM AMBULATORY - NONE [facility] Dec 04, 2024 05:30 PM AMBULATORY - NONE [facility] Dec 04, 2024 06:00 PM AMBULATORY - NONE [facility] Dec 26, 2024 09:00 AM AMBULATORY - MEDICINE [facility] Dec 31, 2024 09:00 AM AMBULATORY - MEDICINE [facility] Social History: Smoking Status (Most current) and Tobacco Use (All prior to encounter date) This section includes the most current, and the historical, smoking and tobacco- related health factors from the [place] facility where the Encounter took place. Current Smoking Status This section includes the most current smoking, or tobacco-related health factor, from the [place] facility where the Encounter took place. Date/Time Current Smoking Status [facility] Facility Apr 19, 2017 11:41 AM QUIT TOBACCO USE > 7 YEARS AGO cigarettes quit 40 years ago/ smoked [address] [facility] Advance Directives: All historical and current Section Date Range: From patient's date of to the date document was created. This section includes ALL of a patient's completed or amended VA Advance and Rescinded Directives. The entries below indicate that a directive exists for the patient, but an actual copy is not included with this document. The data comes from all [place] facilities. Date Advance Directives Provider Source Apr 26, 2017 ADVANCE DIRECTIVE LORENE NAVA Encounter Notes: All associated encounter notes This section contains the clinical notes associated to the Encounter. Date/Time Encounter Note(s) Provider Source Jul 09, 2024 12:51 PM ADDENDUM: LOCAL TITLE: Addendum STANDARD TITLE: ADDENDUM DATE OF NOTE: JUL 09, 2024@12:51:07 ENTRY DATE: JUL 09, 2024@12:51:08 AUTHOR: ANDERS MCCORMICK EXP COSIGNER: URGENCY: STATUS: COMPLETED Will need new Rxs for requested meds from his prescriber Dr Bowden in [place]. /oniel/ ANDERS MCCORMICK MD Primary Care Physician Signed: 07/09/2024 12:51 Receipt Acknowledged By: 07/09/2024 13:44 /oniel/ ERIC KEATING RN REGISTERED NURSE --- Original Document --- 07/09/24 V1 PHARMACY CUSTOMER CARE MEDICATION RENEWAL: Date: Jun Division: [facility] referred by Pharmacy Call Center for medication renewal: Non-controlled/maintenance medication Medications requested: [id number]$ HYDROCHLOROTHIAZIDE 25MG TAB [id number]$ LOSARTAN 50MG TAB Defer to primary care provider To be mailed . Please review and renew if appropriate. *This note was generated by [facility] Pharmacy Customer Care. If you have any questions or need assistance, do not contact this author. Please refer all questions to your local, on-site pharmacy departments. /robin KIRK CPhT Medical Assisting Program Director, [place]/Pharmacy Customer Care Signed: 07/09/2024 12:40 Receipt Acknowledged By: 07/09/2024 12:57 /oniel/ ERIC KEATING RN REGISTERED NURSE 07/09/2024 12:50 /oniel/ ANDERS MCCORMICK MD Primary Care Physician 07/09/2024 ADDENDUM STATUS: UNSIGNED You may not VIEW this UNSIGNED Addendum. ANDERS MCCORMICK [facility] Jul 09, 2024 12:39 PM PHARMACY NOTE: LOCAL TITLE: V1 PHARMACY CUSTOMER CARE MEDICATION RENEWAL STANDARD TITLE: PHARMACY NOTE DATE OF NOTE: JUL 09, 2024@12:39 ENTRY DATE: JUL 09, 2024@12:39:59 AUTHOR: ED KIRK EXP COSIGNER: URGENCY: STATUS: COMPLETED V1 PHARMACY CUSTOMER CARE MEDICATION RENEWAL Has ADDENDA Date: Jun Division: [facility] referred by Pharmacy Call Center for medication renewal: Non-controlled/maintenance medication Medications requested: [id number]$ HYDROCHLOROTHIAZIDE 25MG TAB [id number]$ LOSARTAN 50MG TAB Defer to primary care provider To be mailed . Please review and renew if appropriate. *This note was generated by [facility] Pharmacy Customer Care. If you have any questions or need assistance, do not contact this author. Please refer all questions to your local, on-site pharmacy departments. /robin KIRK CPhT Medical Assisting Program Director, [place]armacy Customer Care Signed: 07/09/2024 12:40 Receipt Acknowledged By: 07/09/2024 12:57 /robin KEATING RN REGISTERED NURSE 07/09/2024 12:50 /oniel/ ANDERS MCCORMICK MD Primary Care Physician 07/09/2024 ADDENDUM STATUS: COMPLETED Will need new Rxs for requested meds from his prescriber Dr Bowden in [place]. /oniel/ ANDERS MCCORMICK MD Primary Care Physician Signed: 07/09/2024 12:51 Receipt Acknowledged By: 07/09/2024 13:44 /oniel/ ERIC KEATING RN REGISTERED NURSE 07/09/2024 ADDENDUM STATUS: COMPLETED Spoke with Dr. Luciano Bowden's office and they will fax over new scripts. /robin KEATING RN REGISTERED NURSE Signed: 07/09/2024 13:45 ED KIRK [facility]
--- OUTSIDE RECORDS SUMMARY | 2025-01-01 13:38 | XMS_ITS | Encounter Summary ---
Author Name [facility] [place] [facility] [place] Address [address] [place] [address] Care Team Providers Care Commercial Relief Driver Name Role Phone ANDERS MCCORMICK Primary Care [...] [place] [facility] MEDIC[facility] ADVANT[facility] MCR ([facility]) Oct 20, 2009 MEDICAR E ADV [id number] [phone] Ry SEGURA PATIENT [facility] ([facility]) MEDICARE ADVANTAGE MCR ([facility]) Oct 20, 2009 [id number] Ry SEGURA PATIENT Selected Encounter This section includes the information on record at [place] for the Encounter. Date/Time Encounter Type Encounter Description Reason Pro vider Source Nov 06, 2024 10:19 AM Outpatient Encounter ADMIN PAT ACTIVTIES (MASNONCT) IHE [...] 20 appointments. The data comes from all [place] treatment facilities. Appointment Date/Time Appointment Type Appointme nt Facility Name Nov 13, 2024 01:30 PM AMBULATORY - NONE [facility] Nov 21, 2024 12:45 PM AMBULATORY - NONE [facility] Dec 04, 2024 05:30 PM AMBULATORY - NONE [facility] Dec 04, 2024 06:00 PM AMBULATORY - NONE [facility] Dec 26, 2024 09:00 AM [facility]BULATORY - MEDICINE [facility] Dec 31, 2024 09:00 AM AMBULATORY - MEDICINE [facility] Jan 16, 2025 09:00 AM AMBULATORY - MEDICINE [facility] May 01, 2025 09:00 [facility] Social History: Smoking Status (Most current) and Tobacco Use (All prior to encounter date) This section includes the most current, and the historical, smoking and tobacco- related health factors from the [place] facility where the Encounter took place. Current Smoking Status This section includes the most current smoking, or tobacco-related health factor, from the [place] facility where the Encounter took place. Date/Time Current Smoking Status Comment Lindsey ity Oct 12, 2023 09:30 AM VA-TOBACCO FORMER USER [facility] Tobacco Use History This section includes a history of the smoking, or tobacco-related health factors, that were collected on or before the date of the Encounter. The data comes from the [place] facility where the Encounter took place. Date/Time Smoking Status/Tobacco Use Comment F acility Oct 12, 2023 09:30 AM VA-TOBACCO QUIT 15 YRS OR MORE [facility] Oct 13, 2022 10:30 AM VA-TOBACCO FORMER USER [facility] Oct 13, 2022 10:30 AM VA-TOBACCO QUIT 15 YRS OR MORE [facility] Oct 23, 2021 10:30 AM VA-TOBACCO FORMER USER [facility] Oct 23, 2021 10:30 AM VA-TOBACCO QUIT 15 YRS OR MORE [facility] Jan 14, 2020 08:45 AM VA-TOBACCO FORMER USER [facility] Jan 14, 2020 08:45 AM VA-TOBACCO QUIT 15 YRS OR MORE [facility] Jun 07, 2018 01:13 PM VA-TOBACCO FORMER USER [facility] Jun 07, 2018 01:13 PM VA-TOBACCO QUIT 15 YRS OR MORE [facility] Jan 09, 2018 08:28 AM NON-TOBACCO USER [facility] Jul 08, 2017 08:00 AM NON-TOBACCO USER [facility] Jan 04, 2017 01:56 PM NON-TOBACCO USER [facility] Sep 24, 2016 11:32 AM NON-TOBACCO USER [facility] Jul 20, 2016 10:27 AM NON-TOBACCO USER [facility] Jan 13, 2016 10:59 AM NON-TOBACCO USER [facility] Oct 13, 2015 01:40 PM NON-TOBACCO USER [facility] Jul 22, 2015 11:10 AM NON-TOBACCO USER [facility] Jan 08, 2015 07:47 AM NON-TOBACCO USER [facility] Oct 23, 2014 10:02 AM NON-TOBACCO USER [facility] Sep 30, 2014 11:51 AM NON-TOBACCO USER [facility] Sep 27, 2014 10:51 AM NON-TOBACCO USER [facility] Sep 25, 2014 01:25 PM NON-TOBACCO USER [facility] Jul 19, 2014 11:37 AM NON-TOBACCO USER [facility] Dec 25, 2013 01:23 PM NON-TOBACCO USER [facility] Jul 18, 2013 07:32 AM NON-TOBACCO USER [facility] Dec 08, 2012 02:05 PM NON-TOBACCO USER [facility] Jul 19, 2012 07:17 AM NON-TOBACCO USER [facility] Oct 13, 2011 07:46 AM NON-TOBACCO USER [facility] Jul 19, 2011 09:18 AM NON-TOBACCO USER [facility] Dec 10, 2010 07:38 AM NON-TOBACCO USER [facility] Jul 31, 2010 02:45 PM NON-TOBACCO USER [facility] Nov 17, 2009 01:30 PM NON-TOBACCO USER [facility] Oct 21, 2009 07:41 AM NON-TOBACCO USER [facility] Jul 21, 2009 07:39 AM NON-TOBACCO USER [facility] Dec 20, 2008 12:40 PM NON-TOBACCO USER [facility] Jul 18, 2008 07:23 AM NON-TOBACCO USER [facility] Nov 23, 2007 01:36 PM NON-TOBACCO USER [facility] Advance Directives: All historical and current Section Date Range: From patient's date of to the date document was created. This section includes ALL of a patient's completed or amended VA Advance and Rescinded Directives. The entries below indicate that a directive exists for the patient, but an actual copy is not included with this document. The data comes from all [place] facilities. Date Advance Directives Provider Source Apr 26, 2017 ADVANCE DIRECTIVE LORENE NAVA [facility] Radiology Reports: +/- 30 days of the [...] the Encounter. The data comes from all [place] treatment facilities. Date/Time Radiology Report Provider Source Dec 04, 2024 05:29 PM MRI ANKLE (RIGHT) WITHOUT CONTRAST: EMILY SEGURA [id number] -1940 M Exm Date: DEC 04, 2024@17:29 Req Phys: EMILY YOUNG Pat Loc: [facility] PODI[facility] NAIL REFUSE LABORER (Req'g L Img Loc: [facility] Service: [place] [address] (Case [id number] COMPLETE) MRI ANKLE (RIGHT) WITHOUT CONTRAS(MRI Detailed) CPT:03276 Proc Modifiers : RIGHT Reason for Study: ankle pain Clinical History: Report Status: Verified Date Reported: DEC 14, 2024 Date Verified: DEC 14, 2024 Interactive Media Specialist E-Sig:/ES/Yash Woodruff MD Report: MRI right ankle [...] Primary Interpreting Staff: Yash Woodruff MD, Radiologist (Interactive Media Specialist) /YASH SCHULTZ MD [facility] Encounter Notes: All associated encounter notes This section contains the clinical notes associated to the Encounter. Date/Time Encounter Note(s) Provider Source Nov 06, 2024 10:19 AM ADMINISTRATIVE NOT E: LOCAL TITLE: [facility] ADMINISTRATIVE NOTE STANDARD TITLE: ADMINISTRATIVE NOTE DATE OF NOTE: NOV 06, 2024@10:19 ENTRY DATE: NOV 06, 2024@10:19:30 AUTHOR: LEXI GARZA EXP COSIGNER: URGENCY: STATUS: COMPLETED SELECT MODALITY: MRI OED:10/30/2024 PD/NICANOR:10/30/2024 Was the order scheduled? Yes: 12/04/2024@18:00 Was the patient [place] Act Eligible? No Were the protocol instructions communicated to the patient? Yes [facility] Pre Mri Cl Scrn Pm Bl 12/04/2024@17:30 Non-count [facility] Mri 1.5t Night Bldg 2 12/04/2024@18:00 Non-count No prior surgery, No implants, No other metal (shrapnel, gunshot) Pt understood to arrive 30 mins prior to exam. Pre-appt letter sent. Pt is not claustrophobic /oniel/ LEXI GARZA Signed: 11/06/2024 10:20 LEXI GARZA [facility]
--- OUTSIDE RECORDS SUMMARY | 2025-01-01 13:38 | XMS_ITS | Encounter Summary ---
Author Organization [facility] Address [address] [place] [address] Phone Care Team Providers Care Pellet Press Operator Name Role Phone Luciano Bowden MD Primary Care Provider Encounter Details Date Type Department Care Team (Late st Contact Info) Description 02/06/2024 Documentation Only [facility], [address] [place] [address] Flora [place], [place] [address] [place] [address] Social History Tobacco Use Types Packs/Day Years Used Date Smoking Tobacco: Never Assessed Sex and Gender Information Value Date Recorded Sex Assigned at Not on file Legal Sex Male 3:21 PM EDT Gender Identity Not on file Sexual Orientation Not on file documented as of this encounter Plan of Treatment Not on file documented as of this encounter Visit Diagnoses Not on filedocumented in this encounter Care Teams Pellet Press Operator Relationship Specialty Start Date End Date Luciano Bowden MD [address] PCP - General Internal Medicine 02/06/24 documented as of this encounter
--- OUTSIDE RECORDS SUMMARY | 2025-01-01 13:38 | XMS_ITS | Encounter Summary ---
Author Name [facility] of Veter[facility] ([place]) Organization [facility] [place] [place] Address [address] [place] [address] Care Team Providers Care Ball Racker Name Role Phone ANDERS MCCORMICK Primary Care [...] [place] [facility] MEDIC[facility] ADVANT[facility] MCR ([facility]) Oct 20, 2009 MEDICAR E ADV [id number] Ry SEGURA PATIENT [facility] ([facility]) MEDICARE ADVANTAGE MCR ([facility]) Oct 20, 2009 [id number] Ry SEGURA PATIENT Selected Encounter This section includes the information on record at [place] for the Encounter. Date/Time Encounter Type Encounter Description Reason Provider Source Dec 31, 2024 09:00 AM DIABETIC CUSTOM MOLDED SHOE PODIATRY ICD-10-CM M14.671 Charcot's joint, right ankle and foot MORIAH VAZQUEZ Encounter Template Text not used by VA Assessments - Encounter Diagnoses This section includes the primary and secondary diagnoses documented for the Encounter. Date/Time Primary/Secondary Diagnosis Diagnosis Name Provider Source Dec 31, 2024 01:38 PM PRIMARY Charcot's joint, right ankle and foot MORIAH VAZQUEZ [place] Plan of Treatment: Future Appointments (+ 6 months) and Future Tests (+/- 45 days) The Plan of Treatment section includes future care activities for the patient from all [place] treatmentfacilities. This section includes future appointments and future orders which are active, pending or scheduled. Future Appointments This section includes appointments that were scheduled to occur 6 months from the date of the Encounter, up to a maximum of 20 appointments. The data comes from all [place] treatment facilities. Appointment Date/Time Appointment Type Appointme nt Facility Name Jan 16, 2025 09:00 AM [facility] May 01, 2025 09:00 AM AMBULATORY - MEDICINE [facility] Social History: Smoking Status (Most current) and Tobacco Use (All prior to encounter date) This section includes the most current, and the historical, smoking and tobacco- related health factors from the [place] facility where the Encounter took place. Current Smoking Status This section includes the most current smoking, or tobacco-related health factor, from the [place] facility where the Encounter took place. Date/Time Current Smoking Status Comment Lindsey ity Jan 12, 2024 10:00 AM VA-TOBACCO NEVER USED [place] Tobacco Use History This section includes a history of the smoking, or tobacco-related health factors, that were collected on or before the date of the Encounter. The data comes from the [place] facility where the Encounter took place. Date/Time Smoking Status/Tobacco Use Comment F acility Jul 07, 2022 10:00 AM VA-TOBACCO FORMER USER [place] Jul 07, 2022 10:00 AM VA-TOBACCO QUIT 15 YRS OR MORE [place] Jul 07, 2021 01:30 PM VA-TOBACCO FORMER USER [place] Jul 07, 2021 01:30 PM VA-TOBACCO QUIT 15 YRS OR MORE [place] Apr 13, 2019 04:47 PM VA-TOBACCO FORMER USER [place] Apr 13, 2019 04:47 PM VA-TOBACCO QUIT 15 YRS OR MORE [place] May 05, 2018 05:56 AM QUIT TOBACCO USE > 7 YEARS AGO Quit in [place] Advance Directives: All historical and current Section Date Range: From patient's date of to the date document was created. This section includes ALL of a patient's completed or amended VA Advance and Rescinded Directives. The entries below indicate that a directive exists for the patient, but an actual copy is not included with this document. The data comes from all [place] facilities. Date Advance Directives Provider Source Apr 26, 2017 ADVANCE DIRECTIVE LORENE NAVA [facility] Radiology Reports: +/- 30 days of [...] the Encounter. The data comes from all [place] treatment facilities. 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 (Req'g L Img Loc: [facility] Service: [place] [address] (Case [id number] COMPLETE) MRI ANKLE (RIGHT) WITHOUT CONTRAS(MRI Detailed) CPT:61115 Proc Modifiers : RIGHT Reason for Study: ankle pain Clinical History: Report Status: Verified Date Reported: DEC 14, 2024 Date Verified: DEC 14, 2024 Aed Trainer E-Sig:/ES/Hunter Woodruff MD Report: MRI right ankle Multiplanar [...] Code: NO ALERT REQUIRED Primary Interpreting Staff: Hunter Woodruff MD, Radiologist (Aed Trainer) /HUNTER SCHULTZ MD [facility] Encounter Notes: All associated encounter notes This section contains the clinical notes associated to the Encounter. Date/Time Encounter Note(s) Provider Source Dec 31, 2024 01:37 PM PODIATRY NOTE: LOCAL TITLE: PODIATRY NOTE STANDARD TITLE: PODIATRY NOTE DATE OF NOTE: DEC 31, 2024@13:37 ENTRY DATE: DEC 31, 2024@13:37:16 AUTHOR: MORIAH VAZQUEZ EXP COSIGNER: URGENCY: STATUS: COMPLETED S: Pt presents for pickup of new therapeutic shoes. O: No new foot health issues at this time. A:Charcot's Joint, right Ankle and Foot P: Dispensed [place] 9921 Black size 12- 6E. They were checked for fit by palpating the length, width and height in the toe box area. They were very comfortable and was instructed to wear them around the house to make sure they fit properly. Pt was informed that if he elected to wear them out on the street that they will not be able to returned within 30 days of dispensing of shoes. Pt was Instructed to make a follow up appt. in the event the shoes do not fit properly-and to bring shoes to that visit. /oniel/ MORIAH VAZQUEZ HEALTH SHRIMP TRAWLER CAPTAIN Signed: 12/31/2024 13:38 MORIAH VAZQUEZ [place]
--- OUTSIDE RECORDS SUMMARY | 2025-01-01 13:38 | XMS_ITS | Encounter Summary ---
Author Name [facility] [place] Organization [facility] [place] Address [address] [place] [address] Care Team Providers Care Rug Shampooer Name Role Phone ANDERS WOLF Primary Care Provider CARI Mohr Primary Care [...] [place] [facility] MEDIC[facility] ADVANT[facility] MCR ([facility]) Oct 20, 2009 MEDICAR E ADV [id number] Ry SEGURA PATIENT [facility] ([facility]) MEDICARE ADVANTAGE MCR ([facility]) Oct 20, 2009 [id number] Ry SEGURA PATIENT Selected Encounter This section includes the information on record at [place] for the Encounter. Date/Time Encounter Type Encounter Description Reason Pro vider Source Jul 02, 2024 03:52 PM Outpatient Encounter ADMIN PAT ACTIVELIZABETH (MIRELLANONCT) IHE Encounter Template Text not used by [...] 30, 2024 11:00 AM AMBULATORY - MEDICINE [facility] Nov 13, 2024 01:30 PM AMBULATORY - NONE [facility] Nov 21, 2024 12:45 PM AMBULATORY - NONE [facility] Dec 04, 2024 05:30 PM AMBULATORY - NONE [facility] Dec 04, 2024 06:00 PM AMBULATORY - NONE [facility] Dec 26, 2024 09:00 AM AM[facility] - [facility]ICINE [facility] Dec 31, 2024 09:00 AM AM[facility]UL[facility]ORY [facility]IC[facility] Social History: Smoking Status (Most current) and [...] 12, 2023 09:30 AM VA-TOBACCO FORMER USER [facility] Tobacco Use History This section includes a history of the smoking, or tobacco-related health factors, that were collected on or before the date of the Encounter. The data comes from the [place] facility where the Encounter took place. Date/Time Smoking Status/Tobacco Use Comment F acility Oct 12, 2023 09:30 AM VA-TOBACCO QUIT 15 YRS OR MORE [facility] Oct 13, 2022 10:30 AM VA-TOBACCO FORMER USER [facility] Oct 13, 2022 10:30 AM VA-TOBACCO QUIT 15 YRS OR MORE [facility] Oct 23, 2021 10:30 AM VA-TOBACCO FORMER USER [facility] Oct 23, 2021 10:30 AM VA-TOBACCO QUIT 15 YRS OR MORE [facility] Jan 14, 2020 08:45 AM VA-TOBACCO FORMER USER [facility] Jan 14, 2020 08:45 AM VA-TOBACCO QUIT 15 YRS OR MORE [facility] Jun 07, 2018 01:13 PM VA-TOBACCO FORMER USER [facility] Jun 07, 2018 01:13 PM VA-TOBACCO QUIT 15 YRS OR MORE [facility] Jan 09, 2018 08:28 AM NON-TOBACCO USER [facility] Jul 08, 2017 08:00 AM NON-TOBACCO USER [facility] Jan 04, 2017 01:56 PM NON-TOBACCO USER [facility] Sep 24, 2016 11:32 AM NON-TOBACCO USER [facility] Jul 20, 2016 10:27 AM NON-TOBACCO USER [facility] Jan 13, 2016 10:59 AM NON-TOBACCO USER [facility] Oct 13, 2015 01:40 PM NON-TOBACCO USER [facility] Jul 22, 2015 11:10 AM NON-TOBACCO USER [facility] Jan 08, 2015 07:47 AM NON-TOBACCO USER [facility] Oct 23, 2014 10:02 AM NON-TOBACCO USER [facility] Sep 30, 2014 11:51 AM NON-TOBACCO USER [facility] Sep 27, 2014 10:51 AM NON-TOBACCO USER [facility] Sep 25, 2014 01:25 PM NON-TOBACCO USER [facility] Jul 19, 2014 11:37 AM NON-TOBACCO USER [facility] Dec 25, 2013 01:23 PM NON-TOBACCO USER [facility] Jul 18, 2013 07:32 AM NON-TOBACCO USER [facility] Dec 08, 2012 02:05 PM NON-TOBACCO USER [facility] Jul 19, 2012 07:17 AM NON-TOBACCO USER [facility] Oct 13, 2011 07:46 AM NON-TOBACCO USER [facility] Jul 19, 2011 09:18 AM NON-TOBACCO USER [facility] Dec 10, 2010 07:38 AM NON-TOBACCO USER [facility] Jul 31, 2010 02:45 PM NON-TOBACCO USER [facility] Nov 17, 2009 01:30 PM NON-TOBACCO USER [facility] Oct 21, 2009 07:41 AM NON-TOBACCO USER [facility] Jul 21, 2009 07:39 AM NON-TOBACCO USER [facility] Dec 20, 2008 12:40 PM NON-TOBACCO USER [facility] Jul 18, 2008 07:23 AM NON-TOBACCO USER [facility] Nov 23, 2007 01:36 PM NON-TOBACCO USER [facility] Advance Directives: All historical and current [...] Apr 26, 2017 ADVANCE DIRECTIVE LORENE NAVA [facility] Encounter Notes: All associated encounter notes This section contains the clinical notes associated to the Encounter. Date/Time Encounter Note(s) Provider Source Jul 02, 2024 03:52 PM CARE MANAGEMENT NO TE: LOCAL TITLE: PCMM ASSIGNMENT TVC NOTE STANDARD TITLE: CARE MANAGEMENT NOTE DATE OF NOTE: JUL 02, 2024@15:52 ENTRY DATE: JUL 02, 2024@15:52:38 AUTHOR: TEE MONTOYA EXP COSIGNER: URGENCY: STATUS: COMPLETED Per previous PCMM Note: 06/13/2023 ADDENDUM STATUS: COMPLETED [place] spoke with at length regarding primary care preference. Explained to the benefits to the TVC program and care coordination being more seamless with one PCP at the head of the care delivery. [place] understood and explained that he would like to keep Dr. Frazier for this season and be unassigned from [facility] but will return to [facility] next spring for good, no plans to return to [place] next season. [place] reiterated program and need to obtain TVC consults for care coordination at an alternate [facility] and understood completely. [place] had no further questions/concerns at this time. [place] approved for permanent relocation to [facility], with the request that keep his December [address] Wolf in [facility]. /oniel/ TEE MONTOYA TRAVELING COORDINATOR Signed: 06/13/2023 14:05 Traveling [place] no longer assigned to [facility]. Approved for permanent relocation of PACT assignment to [facility]. /oniel/ TEE MONTOYA TRAVELING COORDINATOR Signed: 07/02/2024 15:53 TEE MONTOYA [facility]
--- OUTSIDE RECORDS SUMMARY | 2025-01-01 13:38 | XMS_ITS | Data Portability ---
Author Organization [facility], [facility] Address [address] [place] [address] Care Team Providers Care Websphere Consultant Name Role Phone [facility] Primary Care Provi anne Assessment No assessment recorded. Plan of Treatment Reminders Order Date Submit Date Provider Last Modified By Organization Details Last Modified Time Details Appointments RECHECK 15 2024 09:00A Yuni Baum PA-C Not available Not available Not available Lab None recorded . Referral None recorded . Procedures None recorded . Surgeries None recorded . Imaging XR, ankle, 3 or more view - RM.304 3 V OF THE R ANKLE ,WB [address], [address], [address], [place], [address], 08/07/2024 11:42:40 XR, foot, 2 view - RM.304 2 V OF THE R FOOT [address], [address], [address], [place], [address], 08/07/2024 11:42:40 Medication Orders None recorded . Patient TargetsNo targets recorded. Patient InstructionsNo instructions recorded. Reason for Referral None Reported. Results Created Date Observation Date Name Description Value Unit Range Abnormal Flag Note LastModifiedBy Organization Detail LastModifiedTime 05/19/2003/24/2023 imagi ng/di agnos tic resul t No observ ation record ed. [email or web address] Not Available 04/21 04:30:05 05/19/2006/27/2022 imagi ng/di agnos tic resul t No observ ation record ed. [email or web address] Not Available 04/21 04:30:10 05/19/20 24 12/26/2020 imagi ng/di agnos tic resul t No observ ation record ed. [email or web address] Not Available 04/21 04:30:19 05/19/20 24 02/02/2021 imagi ng/di agnos tic resul t No observ ation record ed. [email or web address] Not Available 04/21 04:30:20 08/06/20 24 08/06/2024 XR, ankle , 3 or more view http:/ [email or web address] ?Encry pted=s hAaTro YD8dLq bEUv6g %2BXZw aYqtaq 0bqfl% 2Fg9IQ a4ajBk vP9nXo QUaueC m3YtLR FvZl J[address] Streettai3 3k4719 AC0Kqa XyBV6a mKiQtr MwF INTERFACE [facility] [address], [place], [address], 08/06/2024 14:08:28 08/06/20 24 08/06/2024 XR, ankle , 3 or more view http:/ [email or web address] ?Encry pted=s hAaTro YD8dLq bEUv6g %2BXZw aYqtaq 0bqfl% 2Fg9IQ a4ajBk vP9nXo QUaueC m3YtLR FvZl39 [address]tai3 9y3440 AC0Kqa XyBV6a mKiQtr MwF INTERFACE [facility] [address], [place], [address], 08/06/2024 14:08:30 08/06/20 24 08/06/2024 XR, foot, 2 view http:/ [email or web address] ?Encry pted=s hAaTro YD8dLq bEUv6g %2BXZw aYqtaq 0bqfl% 2Fg9IQ a4ajBk vP9nXo QUaueC m3YtLR FvZlgJ JJ8mAn HZtai3 7o7385 AC0Kqa XyBV6a lKiQtr MwF INTERFACE [facility] [address], [place], [address], 08/06/2024 14:10:21 08/06/20 24 08/06/2024 XR, foot, 2 view http:/ [email or web address] ?Encry pted=s hAaTro YD8dLq bEUv6g %2BXZw aYqtaq 0bqfl% 2Fg9IQ a4ajBk vP9nXo QUaueC m3YtLR FvZlgJ JJ8mAn HZtai3 1b5440 AC0Kqa XyBV6a lKiQtr MwF INTERFACE [facility] [address] [facility] [address], [place], [address], 08/06/2024 14:10:23 Result Notes None recorded. Problems Name Problem SNOMED Code Status Onset Date Resolution Date Notes Provider Name and Address Organization Details Recorded Time No complaints 252103115 Active Status : 'I'; Not Available [facility] 4 09:20:13 Problem Notes None recorded. Procedures Surgical History Date Name Laterality Status Provider Name and Address Organization Details Recorded Time 4 Knee Kenalog 40 1cc Injection, Bilateral completed Delio Baum PA-C [address], [place], [address], [facility] 09/18/2024 13:48:36 4 Ankle Lidocaine 1% Injection, L/R completed Rossi Nash PA-C [address], [place], [address], [facility] 08/06/2024 15:14:40 4 Knee Kenalog 40 1cc Injection, Bilateral completed Delio Baum PA-C [address], [place], [address], [facility] 07/09/2024 07:49:19 4 Knee Kenalog 40 1cc Injection, Bilateral completed Delio Baum PA-C [address], [place], [address], [facility] 04/11/2024 07:46:50 4 Knee Kenalog 40 1cc Injection, Bilateral completed Delio Baum PA-C [address], [place], [address], [facility] 01/02/2024 07:33:29 Imaging Results Imaging Date Name Status LastModified by Organiz ation Details LastModified Time 03/24/2023 imaging/diag nostic result completed Information not available 05/19/2024 04:30:05 06/27/2022 imaging/diag nostic result completed Information not available 05/19/2024 04:30:10 12/26/2020 imaging/diag nostic result completed Information not available 05/19/2024 04:30:19 02/02/2021 imaging/diag nostic result completed Information not available 05/19/2024 04:30:20 08/06/2024 XR, ankle, 3 or more view completed [facility] [address], [place], [address], 08/06/2024 14:08:28 08/06/2024 XR, ankle, 3 or more view completed [facility] [address], [place], [address], 08/06/2024 14:08:30 08/06/2024 XR, foot, 2 view completed [facility] [address], [place], [address], 08/06/2024 14:10:21 08/06/2024 XR, foot, 2 view completed [facility] [address], [place], [address], 08/06/2024 14:10:23 Procedure Notes None recorded. Medical Equipment None Reported. Allergies Allergen ID Allergen Name Allergen Category Reaction Reaction Severity Criticality Documentation Date Start Date Code Code System Note Provider Name and Address Organization Details Recorded Time 91320 aspirin medicatio n Not available Not available Not available 11/21/20232022 1191 RxNorm Not Available [facility] 15:13:23 Medications Name Sig Start Date Stop Date Status Note LastModified by Organization Details LastModified Time metformin 500 mg tablet TAKE 1 TABLET BY MOUTH TWICE DAILY active Not Available Not Available No t Available econazole nitrate 1 % topical cream APPLY CREAM TOPICALLY TO FEET TWICE DAILY FOR 14 DAYS active Not Available Not Available Not Available cephalexin 500 mg capsule TAKE 1 CAPSULE BY MOUTH FOUR TIMES A DAY FOR 7 DAYS active Not Available Not Available N ot Available pseudoephedr ine-guaifene sin ER 80-700 mg tablet,exten ded release DO NOT DRIVE WHILE TAKING THIS MEDICATION 2013 active Statu s: 'Curr ent'; Not Available Not Available Not Available metformin 1,000 mg tablet TAKE 1 TABLET BY MOUTH TWICE DAILY active Not Available Not Available No t Available amoxicillin 875 mg-potassium clavulanate 125 mg tablet TAKE 1 TABLET BY MOUTH EVERY 12 HOURS FOR 10 DAYS active Not Available Not Available Not Available oxycodone HCl-oxycodon e-ASA 1 every [address] WHILE TAKING THIS MEDICATION 2021 active Statu s: 'Curr ent'; Not Available Not Available Not Available Vitals Date Recorded Body height Body mass index (BMI) Body weight Provider Name and Address Organization Details Last Updated DateTime 01/02/2024 172.72 cm 33.5 kg/m2 18223.32 g Delvis Cunha [facility] 01/02/2024 09:30:47 Date Recorded Body height Body mass index (BMI) Body weight Provider Name and Address Organization Details Last Updated DateTime 04/11/2024 172.72 cm 26.5 kg/m2 67621.07 g MEGA Colby [facility] 04/11/2024 09:09:29 Date Recorded Body height Provider Name an d Address Organization Details Last Updated DateTime 07/09/2024 172.72 cm GOLDEN DOUGLASS [facility] 07/09/2024 09:30:30 Date Recorded Body height Body mass index (BMI) Body weight Provider Name and Address Organization Details Last Updated DateTime 08/06/2024 175.26 cm 31.6 kg/m2 81057.77 g emilio alford [facility] 08/06/2024 14:09:02 Date Recorded Body height Provider Name an d Address Organization Details Last Updated DateTime 09/05/2024 175.26 cm GOLDEN DOUGLASS [facility] 09/05/2024 14:02:01 Social History None recorded. Functional Status None recorded. Mental Status None recorded. Family History Nothing Reported. Medical History No medical history recorded. Past Encounters Encounter ID Performer Location Encounter Start Date Encounter Closed Date Diagnosis/Indication Diagnosis SNOMED-CT Code Diagnosis ICD10 Code Diagnosis Note [id number] [facility] [address] [place] [address] 01/02/2024 09:20:00 01/02/2024 12:33:20 Osteoarthritis of left knee joint 4692965605 91643 M17.12 Osteoarthr itis of right knee joint 4958342767 80237 M17.11 [id number] [facility] [address] [place] [address] 04/11/2024 08:49:08 05/02/2024 09:05:00 Osteoarthritis of left knee joint 2749286219 40169 M17.12 Osteoarthr itis of right knee joint 9488512633 47019 M17.11 [id number] [facility] [address] [place] [address] 07/09/2024 09:24:18 07/31/2024 09:06:58 Arthritis of right knee 8535424469 868213 M17.11 Arthritis of left knee 1332266941 882173 M17.12 [id number] MARYCARM[facility] [address] [place] [address] 08/06/2024 13:30:02 08/28/2024 14:26:48 Pain in right foot 2762424922 50650 M79.494 [id number] MARYCARMEN [facility] [address] [place] [address] 09/05/2024 13:53:58 09/25/2024 13:39:30 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 5493053279 M17.32 Osteoarthr itis of right knee joint 5001603374 50856 M17.11 Health Concerns Section Related Observation LastModified by Organization Detai ls LastModified Time None Recorded Concern Status LastModified by Organization Details LastModified Time None Recorded Advance Directives Directive None Recorded Payers Encounter Date Sequence Insurance Name Policy Number Policy [place] Covered Member ID [place] Member ID Guarantor Name 01/02/2024 1 [employer] MED[employer]ARE ADVANTAGE PLAN (MEDICARE REPLACEMENT HMO) [id number] 3 Dav [employer] [id number] Dav Raza [employer] 04/11/2024 1 [employer] MEDIC[employer] ADVANTAGE PLAN (MEDICARE REPLACEMENT HMO) [id number] 3 Dav Raza [employer] [id number] Dav Raza [employer] 07/09/2024 1 [employer]VANTAGE PLAN (MEDICARE REPLACEMENT HMO) [id number] 3 Dav [employer] [id number] Dav Raza [employer] 08/06/2024 1 [employer]VANTAGE PLAN (MEDICARE REPLACEMENT HMO) [id number] 3 Dav Raza [employer] [id number] Dav Raza [employer] 09/05/2024 1 [employer]VANTAGE PLAN (MEDICARE REPLACEMENT HMO) [id number] 3 Dav Raza [employer] [id number] Dav Raza [employer] Notes Date Note Type Note Provider Name and Address Organization Details Recorded Time 01/02/2024 text/html I am seeing the patient today under the supervision of {{Shelli Hearn*} } who was available but who did not see the patient. Chief Complaint The patient presents today for recheck of bilateral knee osteoarthritis. Is known to have knee arthritis treated conservatively to this point with {{1 2 3*}} monthsrelief of symptoms. Presents today for recheck secondary to increased knee pain. History of Present Illness ? Allergy list reviewed ? Medication list reviewed Past Medical/Surgical History Reviewed today, otherwise unchanged per intake sheet. Physical Findings General Appearance: ? ? ? Well developed. ? ? ? In no acute distress. Musculoskeletal System: Knee: General/bilateral: ? ? ? No laxity of the knee. Right Knee: ? Medial aspect was tender on palpation. ? ? ? No erythema. ? ? ? No warmth. Left Knee: ? Medial aspect was tender on palpation. ? ? ? No erythema. ? ? ? No warmth. Musculoskeletal Scales: General/bilateral: ? Mild effusion noted. Neurological: ? ? ? Oriented to time, place, and person. Gait And Stance: ? ? ? Normal. Psychiatric: ? ? ? Mood was appropriate to the affect. Left knee 0-120 degrees of flexion with discomfort. Right knee 0-120 degrees of flexion with discomfort. Assessment ? Osteoarthritis of knee -bilateral knees Plan More than 50% of todays visit was spent on direct patient counseling regarding their knee condition and treatment options both operative with knee arthroplasty and non-operative, including oral medications and injection therapy. After discussion, my clinical decision was to go forth with an intra-articular cortisone injection. After explaining risks and benefits, under meticulous aseptic technique, each knee was injected with, 1cc of Kenalog 40mgs and 4 cc of Marcaine 1/4%. They tolerated the procedures well. Post injection precautions reviewed. Follow up with us in 3 months for further discussion of total knee replacement surgery versus continued conservative treatment. Delio Baum PA-C [address] [facility] [address], [place], [address], [facility] 01/02/2024 12:32:50 04/11/2024 text/html I am seeing the patient today under the supervision of {{Shelli* Nadiya} } who was available but who did not see the patient. Chief Complaint The patient presents today for recheck of bilateral knee osteoarthritis. Is known to have knee arthritis treated conservatively to this point with {{1 2* 3}} months relief of symptoms. Presents today for recheck secondary to increased knee pain. History of Present Illness ? Allergy list reviewed ? Medication list reviewed Past Medical/Surgical History Reviewed today, otherwise unchanged per intake sheet. Physical Findings General Appearance: ? ? ? Well developed. ? ? ? In no acute distress. Musculoskeletal System: Knee: General/bilateral: ? ? ? No laxity of the knee. Right Knee: ? Medial aspect was tender on palpation. ? ? ? No erythema. ? ? ? No warmth. Left Knee: ? Medial aspect was tender on palpation. ? ? ? No erythema. ? ? ? No warmth. Musculoskeletal Scales: General/bilateral: ? Mild effusion noted. Neurological: ? ? ? Oriented to time, place, and person. Gait And Stance: ? ? ? Normal. Psychiatric: ? ? ? Mood was appropriate to the affect. Left knee 0-120 degrees of flexion with discomfort. Right knee 0-120 degrees of flexion with discomfort. Assessment ? Osteoarthritis of knee -bilateral knees Plan More than 50% of todays visit was spent on direct patient counseling regarding their knee condition and treatment options both operative with knee arthroplasty and non-operative, including oral medications and injection therapy. After discussion, my clinical decision was to go forth with an intra-articular cortisone injection. After explaining risks and benefits, under meticulous aseptic technique, each knee was injected with, 1cc of Kenalog 40mgs and 4 cc of Marcaine 1/4%. They tolerated the procedures well. Post injection precautions reviewed. Follow up with us in 3 months for further discussion of total knee replacement surgery versus continued conservative treatment. Delio Baum PA-C [address] [place] [address] [address], [place], [address], [facility] 04/11/2024 11:13:57 07/09/2024 text/html I am seeing the patient today under the supervision of {{Shelli* Nadiya} } who was available but who did not see the patient. Chief Complaint The patient presents today for recheck of bilateral knee osteoarthritis. Is known to have knee arthritis treated conservatively to this point with {{1 2 3*}} months relief of symptoms. Presents today for recheck secondary to increased knee pain. History of Present Illness ? Allergy list reviewed ? Medication list reviewed Past Medical/Surgical History Reviewed today, otherwise unchanged per intake sheet. Physical Findings General Appearance: ? ? ? Well developed. ? ? ? In no acute distress. Musculoskeletal System: Knee: General/bilateral: ? ? ? No laxity of the knee. Right Knee: ? Medial aspect was tender on palpation. ? ? ? No erythema. ? ? ? No warmth. Left Knee: ? Medial aspect was tender on palpation. ? ? ? No erythema. ? ? ? No warmth. Musculoskeletal Scales: General/bilateral: ? Mild effusion noted. Neurological: ? ? ? Oriented to time, place, and person. Gait And Stance: ? ? ? Normal. Psychiatric: ? ? ? Mood was appropriate to the affect. Left knee 0-120 degrees of flexion with discomfort. Right knee 0-120 degrees of flexion with discomfort. Assessment ? Osteoarthritis of knee -bilateral knees Plan More than 50% of todays visit was spent on direct patient counseling regarding their knee condition and treatment options both operative with knee arthroplasty and non-operative, including oral medications and injection therapy. After discussion, my clinical decision was to go forth with an intra-articular cortisone injection. After explaining risks and benefits, under meticulous aseptic technique, each knee was injected with, 1cc of Kenalog 40mgs and 4 cc of Marcaine 1/4%. They tolerated the procedures well. Post injection precautions reviewed. Follow up with us in 3 months for further discussion of total knee replacement surgery versus continued conservative treatment. Delio Baum PA-C [address] [place] [address] [address], [place], [address], [facility] 07/09/2024 12:27:49 08/06/2024 text/html I am seeing the patient today under the supervision of Dr. Prescott who was available but who did not see the patient. HPI:_Right 84-year-old diabetic male presents for evaluation of right ankle pain. 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 No pain on the left side. He reports pain associated with his flatfoot deformity on the right side only. He wonders if it is from compensating with his right foot over time. 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 Has not obtained the brace yet. His pain is localized over the subfibular region. He is not interested in surgery. Has discussed this in the past. Past family, medical, social history and review of systems has been reviewed, updated and signed by me and is located in the patient's chart. Examination: The patient is well appearing, alert and oriented x3 and in no acute distress. Gait is antalgic. Pes planovalgus alignment noted in stance, right. Single limb heel rise elicits discomfort. Hindfoot is not passively correctable. Tender over the hindfoot laterally especially subfibular. Weakness with inversion against resistance. Gastrocnemius contracture noted. Neurovascularly intact distally. No gross instability. Skin is intact without lesions. X-rays ordered, obtained and reviewed at [facility], a ? ve view weight bearing series of the foot and ankle reveals peritalar subluxation with uncovering of the talar head consistent with pes planovalgus deformity. 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 Discussed the nature of the problem. Patient looking for conservative treatment options only. I agree with the custom brace. I explained the importance of skin checks to avoid skin breakdown and wound over the medial hindfoot. I offered an injection today which the patient agreed to. Follow-up in 3 months. Sooner if any issues arise._. [facility] speech recognition residential sales executive software was used to create portions of this document. An attempt at proofreading has been made to minimize errors. Please call for corrections. .v Rossi Nash PA-C [address] [place] [address] [address] [facility], [place], [address], [facility] 08/06/2024 15:15:02 09/05/2024 text/html I am seeing the patient today under the supervision of {{Shelli* Nadiya} } who was available but who did not see the patient. Chief Complaint The patient presents today for recheck of bilateral knee osteoarthritis. Is known to have knee arthritis treated conservatively to this point with {{1 2 3*}} months relief of symptoms. Presents today for recheck secondary to increased knee pain. History of Present Illness ? Allergy list reviewed ? Medication list reviewed Past Medical/Surgical History Reviewed today, otherwise unchanged per intake sheet. Physical Findings General Appearance: ? ? ? Well developed. ? ? ? In no acute distress. Musculoskeletal System: Knee: General/bilateral: ? ? ? No laxity of the knee. Right Knee: ? Medial aspect was tender on palpation. ? ? ? No erythema. ? ? ? No warmth. Left Knee: ? Medial aspect was tender on palpation. ? ? ? No erythema. ? ? ? No warmth. Musculoskeletal Scales: General/bilateral: ? Mild effusion noted. Neurological: ? ? ? Oriented to time, place, and person. Gait And Stance: ? ? ? Normal. Psychiatric: ? ? ? Mood was appropriate to the affect. Left knee 0-120 degrees of flexion with discomfort. Right knee 0-120 degrees of flexion with discomfort. Assessment ? Osteoarthritis of knee -bilateral knees Plan More than 50% of todays visit was spent on direct patient counseling regarding their knee condition and treatment options both operative with knee arthroplasty and non-operative, including oral medications and injection therapy. After discussion, my clinical decision was to go forth with an intra-articular cortisone injection. After explaining risks and benefits, under meticulous aseptic technique, each knee was injected with, 1cc of Kenalog 40mgs and 4 cc of Marcaine 1/4%. They tolerated the procedures well. Post injection precautions reviewed. Follow up with us in 3 months for further discussion of total knee replacement surgery versus continued conservative treatment. Delio Baum PA-C [address] [facility] [address], [place], [address], [place] [facility] 09/18/2024 13:48:56
--- OUTSIDE RECORDS SUMMARY | 2025-01-01 13:38 | XMS_ITS | Encounter Summary ---
Author Name [facility] Organization [facility] [place] Address [address] [place] [address] Care Team Providers Care Board Certified Arts Therapist Name Role Phone ANDERS MCCORMICK Primary Care [...] [place] MEDICARE ADVANTAGE MCR ([facility]) Oct 20, 2009 MEDICAR E ADV [id number] Ry SEGURA PATIENT [facility] ([facility]) MEDICARE ADVANTAGE MCR ([facility]) Oct 20, 2009 [id number] Ry SEGURA PATIENT Selected Encounter This section includes the information on record at [place] for the Encounter. Date/Time Encounter Type Encounter Description Reason Provider Source Jan 04, 2024 09:00 AM OFFICE O/P EST LOW 20 MIN PODIATRY ICD-10-CM L60.3 Nail dystrophy URVASHI GOMEZ Encounter Template Text not used by VA Assessments - Encounter Diagnoses This section includes the primary and secondary diagnoses documented for the Encounter. Date/Time Primary/Secondary Diagnosis Diagnosis Name Provider Source Jan 04, 2024 09:19 AM PRIMARY Nail dystrophy URVASHI GOMEZ GIVEN Jan 04, 2024 09:19 AM SECONDARY Ingrowing nail URVASHI GOMEZ GIVEN Jan 04, 2024 09:19 AM SECONDARY Pain in left toe(s) URVASHI GOMEZ PENNY Jan 04, 2024 09:19 AM SECONDARY Pain in right toe(s) URVASHI GOMEZ GIVEN Jan 04, 2024 09:19 AM SECONDARY Type 2 diabetes w diabetic peripheral angiopath w/o gangrene URVASHI GOMEZ GIVEN Plan of Treatment: Future Appointments (+ 6 months) and Future Tests (+/- 45 days) The Plan of Treatment section includes future care activities for the patient from all [place] treatmentfacilities. This section includes future appointments and future orders which are active, pending or scheduled. Future Appointments This section includes appointments that were scheduled to occur 6 months from the date of the Encounter, up to a maximum of 20 appointments. The data comes from all [place] treatment facilities. Appointment Date/Time Appointment Type Appointme nt Facility Name Jan 12, 2024 10:00 AM [facility] Jun 06, 2024 09:00 AM AM[facility]UL[facility]ORY - MEDICINE [facility] Social History: Smoking Status (Most current) and Tobacco Use (All prior to encounter date) This section includes the most current, and the historical, smoking and tobacco- related health factors from the [place] facility where the Encounter took place. Current Smoking Status This section includes the most current smoking, or tobacco-related health factor, from the [place] facility where the Encounter took place. Date/Time Current Smoking Status Comment Lindsey ity Jul 07, 2022 10:00 AM VA-TOBACCO QUIT 15 YRS OR MORE GIVEN Tobacco Use History This section includes a history of the smoking, or tobacco-related health factors, that were collected on or before the date of the Encounter. The data comes from the [place] facility where the Encounter took place. Date/Time Smoking Status/Tobacco Use Comment F acility Jul 07, 2022 10:00 AM VA-TOBACCO QUIT 15 YRS OR MORE GIVEN Jul 07, 2021 01:30 PM VA-TOBACCO FORMER USER GIVEN Jul 07, 2021 01:30 PM VA-TOBACCO QUIT 15 YRS OR MORE GIVEN Apr 13, 2019 04:47 PM VA-TOBACCO FORMER USER GIVEN Apr 13, 2019 04:47 PM VA-TOBACCO QUIT 15 YRS OR MORE GIVEN May 05, 2018 05:56 AM QUIT TOBACCO USE > 7 YEARS AGO Quit in 1960's GIVEN Advance Directives: All historical and current Section Date Range: From patient's date of to the date document was created. This section includes ALL of a patient's completed or amended [place] Advance and Rescinded Directives. The entries below indicate that a directive exists for the patient, but an actual copy is not included with this document. The data comes from all [place] facilities. Date Advance Directives Provider Source Apr 26, 2017 ADVANCE DIRECTIVE LORENE NAVA [facility] Encounter Notes: All associated encounter notes This section contains the clinical notes associated to the Encounter. Date/Time Encounter Note(s) Provider Source Jan 04, 2024 07:34 AM PODIATRY NOTE: LOCAL TITLE: PODIATRY NOTE STANDARD TITLE: PODIATRY NOTE DATE OF NOTE: JAN 04, 2024@07:34 ENTRY DATE: JAN 04, 2024@07:34:54 AUTHOR: URVASHI GOMEZ EXP COSIGNER: URGENCY: STATUS: COMPLETED NOTE: HAS RECEIVED BOTH COVID VACCINE DOSES + 2 BOOSTERS AT [facility] LAST SEEN FOR TREATMENT: 08/06/2023 S: Pt. is an 83 yo alert WDWN CAUC MALE who presents for continued podiatric care for treatment of a presenting complaint [...] present physical-medical status. Protective sensation utilizing a [place]-Yash lOg monofilament is 10/10 bilateral. 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 P: Treatment consists of trimming-reduction of all nails via manual and electric means with excision of the offending nail borders and thinning of the nail plates to the point of imminent bleeding and special attention to MEDIAL RT HALLUX NAIL BORDER. REVIEWED HOME FOOT CARE FEET ARE IN EXCELLENT CONDITION AND I PROVIDED HIM WITH WRITTEN RECOMMENDATIONS FOR FOOT CARE TO BE REVIEWED AT HOME (FOOT CARE TIPS). *DISCUSSED NEW PROTOCOLS AND CALLED [facility] TODAY FOR RESCHEDULING RTC: 06/06/@ 9AM) I DISCUSSED THE FINDINGS & PLAN WITH PATIENT (UNCHANGED SINCE PREVIOUS VISIT) & PATIENT AGREES AND UNDERSTANDS PLAN-RECEIVED MIRROR PATIENT REQUESTED NEW CUSTOM THERAPEUTIC SHOES FROM [facility] AND ORDER PLACED TODAY & HE WILL BE CONTACTED BY [facility] DIRECTLY Medication Reconciliation: PERFORMED TODAY - SEE BELOW. Outpatient: Has the patient been taking medications as documented in the EMLR? YES: The patient has been taking medications as documented in the EMLR. Essential Medication List for Review used to complete this medication reconciliation. INCLUDED IN THIS LIST: Alphabetical list of active outpatient prescriptions dispensed from this VA (local) and dispensed from another [place] or DoD facility (remote) as well as [...] list may not be complete. Please check JLV. Allergies/ADRs (Tool #5) FACILITY ALLERGY/ADR -------- [facility] No Known Allergies [facility] NO KNOWN ALLERGIES Med Recon NoGlossary (Tool [...] display of VA prescriptions dispensed from another VA or DoD facility (remote) is limited to active outpatient prescription entries matched to National Drug File at the originating site and may not include some items such as investigational drugs, compounds, etc. NOT INCLUDED IN THIS LIST: Medications self-entered by the patient into personal health records (i.e. isango!) are NOT included in this list. Non-VA medications documented outside this [place], remote inpatient orders (regardless of status) and remote clinic medications are NOT included in this list. The patient and provider must always discuss medications the patient is taking, regardless of where the medication was dispensed or obtained. Non-VA ALOGLIPTIN 12.5MG TAB TAKE ONE TABLET BY MOUTH ONCE DAILY Patient wants to buy from Non-SD pharmacy. Non-VA AMLODIPINE BESYLATE 10MG TAB TAKE ONE TABLET BY MOUTH EVERY DAY filled through [facility] Non-VA ASPIRIN 81MG EC TAB TAKE ONE TABLET BY MOUTH DAILY Patient wants to buy from Non-SD pharmacy. Non-VA ATORVASTATIN CALCIUM 80MG TAB TAKE ONE TABLET BY MOUTH AT BEDTIME Filled by [facility] Non-VA CYANOCOBALAMIN TAB TAKE BY MOUTH ONCE DAILY Patient wants to buy from Non-SD pharmacy. Medication prescribed by Non-SD provider. Remote EMPAGLIFLOZIN 25MG TAB TAKE ONE-HALF TABLET BY MOUTH DAILY FOR DIABETES (CONTACT PROVIDER IF GENITAL RASH OCCURS) Last Filled: 12/31/23 (Active at [facility]) Rx Expiration Date: 10/12/24 Days Supply: 90 Non-VA FINASTERIDE 5MG TAB TAKE ONE TABLET BY MOUTH EVERY DAY filled by [facility] Remote FINASTERIDE 5MG TAB TAKE ONE TABLET BY MOUTH DAILY FOR PROSTATE ENLARGEMENT Last Filled: 12/12/23 (Active at [facility]) Rx Expiration Date: 09/19/24 Days Supply: 90 Remote HYDROCHLOROTHIAZIDE 12.5MG/LISINOPRIL 10MG TAB TAKE 1 TABLET BY MOUTH DAILY FOR HIGH BLOOD PRESSURE FOR BLOOD PRESSURE, KIDNEY PROTECTION AND/OR HEART Last Filled: 10/12/23 (Active at [facility]) Rx Expiration Date: 10/12/24 Days Supply: 90 Non-VA HYDROCHLOROTHIAZIDE 25MG TAB TAKE ONE TABLET BY MOUTH DAILY Medication prescribed by Non-SD provider. Non-VA KETOCONAZOLE 2% CREAM APPLY A SMALL AMOUNT TOPICALLY ONCE DAILY Patient wants to buy from Non-SD pharmacy. Non-VA LISINOPRIL 20MG TAB TAKE ONE TABLET BY MOUTH DAILY Medication prescribed by Non-SD provider. [facility] MAGNESIUM OXIDE 420MG TAB TAKE TWO TABLETS BY MOUTH TWICE A DAY FOR LOW MAGNESIUM Last Filled: 10/07/23 (Active at [facility]) Rx Expiration Date: 10/06/24 Days Supply: 90 Non-SD MAGNESIUM OXIDE TAB TAKE BY MOUTH TWICE DAILY Medication prescribed by Non-SD provider. Non-VA METFORMIN HCL 1000MG TAB TAKE ONE TABLET BY MOUTH TWICE DAILY BEFORE A MEAL from [facility] OMEPRAZOLE 20MG CAP,EC TAKE ONE CAPSULE BY MOUTH EVERY MORNING BEFORE EATING FOR STOMACH Last Filled: 11/22/23 (Active at [facility]) Rx Expiration Date: 10/06/24 Days Supply: 90 Non-VA OMEPRAZOLE 20MG EC CAP TAKE 1 CAPSULE BY MOUTH EVERY MORNING 30 MINUTES BEFORE BREAKFAST Filled by [facility] Remote POLYETHYLENE GLYCOL 3350 PWDR,ORAL MIX 17GM (PER MEASURING CAP) BY MOUTH DAILY FOR CONSTIPATION (MIX IN WATER OR JUICE DIRECTED FOR CONSTIPATION) Last Filled: 10/07/23 (Active at [facility]) Rx Expiration Date: 10/06/24 Days Supply: 30 SUPPLIES /oniel/ URVASHI GOMEZ DPM CUSTOM DECORATING CONSULTANT Signed: 01/04/2024 09:20 URVASHI GOMEZ GIVEN
--- OUTSIDE RECORDS SUMMARY | 2025-01-01 13:38 | XMS_ITS | Clinical Summary ---
Author Organization [facility], Address [address] [place] [address] [place] [address] Phone Care Team Providers Care Elevator Erector Name Role Phone Luciano Bowden MD Primary Care Provider Social History Tobacco Use Types Packs/Day Years Used Date Smoking Tobacco: Never Assessed Sex and Gender Information Value Date Recorded Sex Assigned at Not on file Legal Sex Male 3:21 PM EDT Gender Identity Not on file Sexual Orientation Not on file Plan of Treatment Health Maintenance Due Date Last Done Comments Diabetes: Hemoglobin A1C 02/16/2024 Diabetes: Ophthalmology Exam 02/16/2024 Diabetes: Pedal Pulse Checked 02/16/2024 Diabetes: Sensory Foot Exam 02/16/2024 Diabetes: Visual Foot Exam 02/16/2024 Influenza Vaccine (Season Ended) 2025 07/06/2023, 07/07/2022, 06/19/2022, Additional history exists Pneumococcal Vaccine: 50+ Years Completed 01/08/2015, 11/23/2007, 11/23/2007 Hepatitis B Vaccine Aged Out No longe r eligible based on patient's age to complete this topic [place] [address] [facility] MCR Care Teams Elevator Erector Relationship Specialty Start Date End Date Luciano Bowden MD [address] PCP - General Internal Medicine 02/06/24
--- OUTSIDE RECORDS SUMMARY | 2025-01-01 13:39 | XMS_ITS | Encounter Summary ---
Author Name [facility] Organization [facility] [place] Address [address] [place] [address] Care Team Providers Care Printing Supplies Sales Representative Name Role Phone ANDERS MCCORMICK Primary Care [...] [place] MEDIC[place] ADVANTAGE MCR ([facility]) Oct 20, 2009 MEDICAR E ADV [id number] Ry SEGURA PATIENT [facility] ([facility]) MEDICARE ADVANTAGE MCR ([facility]) Oct 20, 2009 [id number] Ry SEGURA PATIENT Selected Encounter This section includes the information on record at [place] for the Encounter. Date/Time Encounter Type Encounter Description Reason Provider Source Nov 21, 2024 12:45 PM HEARING AID FITTING/CHECKIN G AUDIOLOGY ICD-10-CM Z46.1 Encounter for fitting and adjustment of hearing aid PABLO BURKETT Encounter Template Text not used by VA Assessments - Encounter Diagnoses This section includes the primary and secondary diagnoses documented for the Encounter. Date/Time Primary/Secondary Diagnosis Diagnosis Name Provider Source Nov 21, 2024 05:06 PM PRIMARY Encounter for fitting and adjustment of hearing aid PABLO BURKETT [facility] Nov 21, 2024 05:06 PM SECONDARY Sensorineural hearing loss, bilateral PABLO BURKETT [facility] Plan of Treatment: Future Appointments (+ 6 months) and Future Tests (+/- 45 days) The Plan of Treatment section includes future care activities for the patient from [facility] [place] [facility]. This section includes future appointments and future orders which are active, pending or scheduled. Future Appointments This section includes appointments that were scheduled to occur 6 months from the date of the Encounter, up to a maximum of 20 appointments. The data comes from all [place] treatment facilities. Appointment Date/Time Appointment Type Appointme nt Facility Name Dec 04, 2024 05:30 PM AMBULATORY - NONE [facility] Dec 04, 2024 06:00 PM AMBULATORY - NONE [facility] Dec 26, 2024 09:00 AM AMBULATORY - MEDICINE [facility] Dec 31, 2024 09:00 AM AMBULATORY - MEDICINE [facility] Jan 16, 2025 09:00 AM AMBULATORY MEDICINE [facility] May 01, 2025 09:00 AM AMBULATORY - MEDICINE [facility] Social History: Smoking Status (Most current) and Tobacco Use (All prior to encounter date) This section includes the most current, and the historical, smoking and tobacco- related health factors from the [place] facility where the Encounter took place. Current Smoking Status This section includes the most current smoking, or tobacco-related health factor, from the [place] facility where the Encounter took place. Date/Time Current Smoking Status Comment Lindsey ity Oct 12, 2023 09:30 AM VA-TOBACCO FORMER USER [facility] Tobacco Use History This section includes a history of the smoking, or tobacco-related health factors, that were collected on or before the date of the Encounter. The data comes from the [place] facility where the Encounter took place. Date/Time Smoking Status/Tobacco Use Comment F acility Oct 12, 2023 09:30 AM [place]-TOBACCO QUIT 15 YRS OR MORE [facility] Oct 13, 2022 10:30 AM [place]-TOBACCO FORMER USER [facility] Oct 13, 2022 10:30 AM VA-TOBACCO QUIT 15 YRS OR MORE [facility] Oct 23, 2021 10:30 AM VA-TOBACCO FORMER USER [facility] Oct 23, 2021 10:30 AM VA-TOBACCO QUIT 15 YRS OR MORE [facility] Jan 14, 2020 08:45 AM VA-TOBACCO FORMER USER [facility] Jan 14, 2020 08:45 AM VA-TOBACCO QUIT 15 YRS OR MORE [facility] Jun 07, 2018 01:13 PM VA-TOBACCO FORMER USER [facility] Jun 07, 2018 01:13 PM VA-TOBACCO QUIT 15 YRS OR MORE [facility] Jan 09, 2018 08:28 AM NON-TOBACCO USER [facility] Jul 08, 2017 08:00 AM NON-TOBACCO USER WE [facility] Jan 04, 2017 01:56 PM NON-TOBACCO USER WE [facility] Sep 24, 2016 11:32 AM NON-TOBACCO USER WE [facility] Jul 20, 2016 10:27 AM NON-TOBACCO USER WE [facility] Jan 13, 2016 10:59 AM NON-TOBACCO USER WE [facility] Oct 13, 2015 01:40 PM NON-TOBACCO USER WE [facility] Jul 22, 2015 11:10 AM NON-TOBACCO USER WE [facility] Jan 08, 2015 07:47 AM NON-TOBACCO USER WE [facility] Oct 23, 2014 10:02 AM NON-TOBACCO USER WE [facility] Sep 30, 2014 11:51 AM NON-TOBACCO USER WE [facility] Sep 27, 2014 10:51 AM NON-TOBACCO USER WE [facility] Sep 25, 2014 01:25 PM NON-TOBACCO USER WE [facility] Jul 19, 2014 11:37 AM NON-TOBACCO USER WE [facility] Dec 25, 2013 01:23 PM NON-TOBACCO USER WE [facility] Jul 18, 2013 07:32 AM NON-TOBACCO USER WE [facility] Dec 08, 2012 02:05 PM NON-TOBACCO USER WE [facility] Jul 19, 2012 07:17 AM NON-TOBACCO USER WE [facility] Oct 13, 2011 07:46 AM NON-TOBACCO USER WE [facility] Jul 19, 2011 09:18 AM NON-TOBACCO USER WE [facility] Dec 10, 2010 07:38 AM NON-TOBACCO USER WE [facility] Jul 31, 2010 02:45 PM NON-TOBACCO USER WE [facility] Nov 17, 2009 01:30 PM NON-TOBACCO USER WE [facility] Oct 21, 2009 07:41 AM NON-TOBACCO USER WE [facility] Jul 21, 2009 07:39 AM NON-TOBACCO USER WE [facility] Dec 20, 2008 12:40 PM NON-TOBACCO USER WE [facility] Jul 18, 2008 07:23 AM NON-TOBACCO USER WE [facility] Nov 23, 2007 01:36 PM NON-TOBACCO USER WE [facility] Advance Directives: All historical and current Section Date Range: From patient's date of to the date document was created. This section includes ALL of a patient's completed or amended [place] Advance and Rescinded Directives. The entries below indicate that a directive exists for the patient, but an actual copy is not included with this document. The data comes from all [place] facilities. Date Advance Directives Provider Source Apr 26, 2017 ADVANCE DIRECTIVE LORENE NAVA [facility] Radiology Reports: +/- 30 days of [...] the Encounter. The data comes from all [place] treatment facilities. Date/Time Radiology Report Provider Source Dec 04, 2024 05:29 PM MRI ANKLE (RIGHT) WITHOUT CONTRAST: EMILY SEGURA [id number] -[id number] M Exm Date: DEC 04, 2024@17:29 Req Phys: EMILY YOUNG Pat Loc: [facility] P[facility] NAIL BLACKTOP PAVER OPERATOR (Req'g L Img Loc: [facility] Service: [place] [address] (Case [id number] COMPLETE) MRI ANKLE (RIGHT) WITHOUT CONTRAS(MRI Detailed) CPT:64292 Proc Modifiers : RIGHT Reason for Study: ankle pain Clinical History: Report Status: Verified Date Reported: DEC 14, 2024 Date Verified: DEC 14, 2024 Marketing Forecaster E-Sig:/ES/Yash Woodruff MD Report: MRI right ankle [...] Primary Interpreting Staff: Yash Woodruff MD, Radiologist (Marketing Forecaster) /YASH SCHULTZ MD [facility] Encounter Notes: All associated encounter notes This section contains the clinical notes associated to the Encounter. Date/Time Encounter Note(s) Provider Source Nov 21, 2024 12:57 PM AUDIOLOGY NOTE: LOCAL TITLE: AUDIOLOGY HEARING AID CLINIC STANDARD TITLE: AUDIOLOGY NOTE DATE OF NOTE: NOV 21, 2024@12:57 ENTRY DATE: NOV 21, 2024@12:57:57 AUTHOR: GEORGE BURKETT COSIGNER: URGENCY: STATUS: COMPLETED AUDIOLOGY HEARING AID CLINIC Has ADDENDA Patient seen in [facility]ING AID TRIAGE [facility] with the following hearing aids: 11/26/21 SONOVA PHONAK AUDEO P90-R TRACEE R [id number] NA 12/04/24 [id number] PAUL 11/26/21 SONOVA PHONAK AUDEO P90-R TRACEE L [id number] 12/04/24 [id number] PAUL Secondary diagnosis: Sensorineural hearing loss, bilateral. Purpose of visit: -Picking up right c-shell. -Vet requests way to increase right aid without increasing left aid. He reports that when he increases the volume, which he does because he wants the right louder, he gets feedback on the left. Action: Otoscopy reveals clear canals bilaterally. -Right c-shell was placed on aid. Non custom wet machine operator was sent away to replenish clinic stock. -Microphone ports on both aids were vacuumed. LC suggests aids are functioning. ONOFRE: Patient's settings were saved in [place]. -Measured maximum stable gain bilaterally and limited gain to MSG curve -Increased right gain at 1 through 4kHz by 5dB overall. -Unable to unsync volume control, was made aware. [place] is comfortable with current loudness and balance. -Vet was offered schedule hearing evaluation for updated amplification, he declined as he is leaving for [place] for the summer soon. Plan: Follow up as needed. /oniel/ MELBA GORDON Perforating Machine Operator Signed: 11/21/2024 17:06 11/21/2024 ADDENDUM STATUS: COMPLETED Upon receipt of replacement wet machine operator, please replenish clinic stock. /robin GORDON Perforating Machine Operator Signed: 11/21/2024 17:22 MELBA BURKETT [facility]
--- OUTSIDE RECORDS SUMMARY | 2025-01-01 13:39 | XMS_ITS | Encounter Summary ---
Author Name [facility] Address [address] [place] [address] Care Team Providers Care Food Service Coordinator Name Role Phone ANDERS MCCORMICK Primary Care Provider UnavailCARI Nevarez Primary Care Provider Unavailrachid riggs Insurance Providers: All historical and current [...] [place] ([facility]) Oct 20, 2009 MEDICAR E ADV [id number] Ry SEGURA PATIENT [facility] ([facility]) MEDICARE ADVANTAGE MCR ([facility]) Oct 20, 2009 [id number] Ry SEGURA PATIENT Selected Encounter This section includes the information on record at [facility] for the Encounter. Date/Time Encounter Type Encounter Description Reason Provider Source Jan 12, 2024 10:00 AM OFFICE O/P EST LOW 20 MIN PRIMARY CARE/MEDICINE ICD-10-CM I10 Essential (primary) hypertension ANDERS MCCORMICK Encounter Template Text not used by [facility] Assessments - Encounter Diagnoses This section includes the primary and secondary diagnoses documented for the Encounter. Date/Time Primary/Secondary Diagnosis Diagnosis Name Provider Source Jan 12, 2024 11:00 AM PRIMARY Essential (primary) hypertension LUCIANOANDERS GRAY PENNY Jan 12, 2024 11:00 AM SECONDARY Hyperlipidemia, unspecified ANDERS MCCORMICK Jan 12, 2024 11:00 AM SECONDARY Type 2 diabetes mellitus without complications ANDERS MCCORMICK Plan of Treatment: Future Appointments (+ 6 months) and Future Tests (+/- 45 days) The Plan of Treatment section includes future care activities for the patient from all [facility] treatmentfacilities. This section includes future appointments and future orders which are active, pending or scheduled. Future Appointments This section includes appointments that were scheduled to occur 6 months from the date of the Encounter, up to a maximum of 20 appointments. The data comes from all [facility] treatment facilities. Appointment Date/Time Appointment Type Appointme nt Facility Name Jun 06, 2024 09:00 AM AMBULATORY - MEDICINE [facility] Social History: Smoking Status (Most [...] 12, 2024 10:00 AM VA-TOBACCO NEVER USED [facility] Tobacco Use History This section includes a history of the smoking, or tobacco-related health factors, that were collected on or before the date of the Encounter. The data comes from the [facility] facility where the Encounter took place. Date/Time Smoking Status/Tobacco Use Comment F acility Jul 07, 2022 10:00 AM VA-TOBACCO FORMER USER [facility] Jul 07, 2022 10:00 AM VA-TOBACCO QUIT 15 YRS OR MORE [facility] Jul 07, 2021 01:30 PM VA-TOBACCO FORMER USER [facility] Jul 07, 2021 01:30 PM VA-TOBACCO QUIT 15 YRS OR MORE [facility] Apr 13, 2019 04:47 PM VA-TOBACCO FORMER USER [facility] Apr 13, 2019 04:47 PM VA-TOBACCO QUIT 15 YRS OR MORE [facility] May 05, 2018 05:56 AM QUIT TOBACCO USE > 7 YEARS AGO Quit in [facility] Advance Directives: All historical and current Section [...] Apr 26, 2017 ADVANCE [address]ENE [facility] Encounter Notes: All associated encounter notes This section contains the clinical notes associated to the Encounter. Date/Time Encounter Note(s) Provider Source Jan 12, 2024 10:17 AM PREVENTIVE MEDICIN E NURSING NOTE: LOCAL TITLE: CLINICAL REMINDERS/NURSING STANDARD TITLE: PREVENTIVE MEDICINE NURSING NOTE DATE OF NOTE: JAN 12, 2024@10:17 ENTRY DATE: JAN 12, 2024@10:17:23 AUTHOR: FATUMA FERNANDEZ COSIGNER: URGENCY: STATUS: COMPLETED Advance Directive Screen AD: Patient has an Advance Directive on file at this [facility]. No updates are needed at this time. The patient received education about Advance Directives and written notification of his/her rights. Homelessness/Food Insecurity Screen: In the past 2 months, have you been living in stable housing that you own, rent, or stay in as part of a household? Yes - Living in stable housing. Are you worried or concerned that in the next 2 months you may NOT have stable housing that you own, rent, or stay in as part of a household? No - Not worried about housing near future The reports the following: Within the past 12 months, you worried whether your food would run out before you got money to buy more. Never true Within the past 12 months, the food you bought just didn't last and you didn't have money to get more. Never true Depression Screening: Perform PHQ-2 A PHQ-2 screen was performed. The score was 0 which is a negative screen for depression. Over the past two weeks, how often have you been bothered by the following problems? 1. Little interest or pleasure in doing things Not at all 2. Feeling down, depressed, or hopeless Not at all Falls & Incontinence Screen: Falls Screen: During the past 12 months, did the patient report any falls? 4. No falls within the past year. Incontinence Screen: During the past 12 months, has the patient has any characteristics of incontinence (ability, voiding, leakage, etc.)? No incontinence. PTSD Screening: PC-PTSD-5 A PTSD screening test (PC-PTSD-5) was negative (score=0). IN THE PAST MONTH, have you ever had any experience that was so frightening, horrible or traumatic. For example: A serious accident or fire a physical or sexual assault or abuse An earthquake or flood A war Seeing someone be killed or seriously injured Having a loved one through homicide or suicide 1. Have you ever experienced this kind of event? NO 2. Had nightmares about the event(s) or thought about the event(s) when you did not want to? Response not required due to responses to other questions. 3. Tried hard not to think about the event(s) or went out of your way to avoid situations that reminded you of the event(s)? Response not required due to responses to other questions. 4. Been constantly on guard, watchful, or easily startled? Response not required due to responses to other questions. 5. [place] numb or detached from people, activities, or your surroundings? Response not required due to responses to other questions. 6. [place] guilty or unable to stop blaming yourself or others for the event(s) or any problems the event(s) may have caused? Response not required due to responses to other questions. Tobacco Use Screening: The patient has never used tobacco. Td / Tdap Immunization: The patient declines to receive the recommended dose of Td/Tdap vaccine. Immunization: TD(ADULT) UNSPECIFIED FORMULATION Refusal Reason: PATIENT DECISION Patient refuses all immunization(s) in the Td group Date Documented: 01/12/24 10:20 Alcohol Use Screen (AUDIT-C): Alcohol Screen: SCREEN FOR ALCOHOL (AUDIT-C) An alcohol screening test (AUDIT-C) was negative (score=2). 1. How often did you have a drink containing alcohol in the past year? Consider a drink to be a 12 ounce can or bottle of regular beer, 8 ounces of malt liquor, a 5 ounce glass of table wine, or a 1.5 ounce shot of liquor (like scotch, gin, or vodka). Two to four times a month 2. How many drinks containing alcohol did you have on a typical day when you were drinking in the past year? One or two drinks 3. How often did you have six or more drinks on one occasion in the past year? Never COVID-19 Immunization: Defer vaccine, reassess in 1 year Reason: decline Herpes Zoster (Shingles) Vaccine: The patient declines to receive the recommended dose of zoster (shingles) vaccine. Immunization: ZOSTER RECOMBINANT Refusal Reason: PATIENT DECISION Patient refuses all immunization(s) in the ZOSTER group Date Documented: 01/12/24 10:23 RHS Screen: RHS Screen Session Format: Face to Face Environmental Check Upon inquiry, the individual reports that the environment is safe to proceed. Informed Consent to Screen and Document The individual consents to proceed with screening. The individual consents to documentation of responses. PRIMARY SCREEN: In the past 12 months, how often did a current or former intimate partner (e.g., boyfriend, girlfriend, , , sexual partner): 1. Scream or curse at you Never 2. Insult or talk down to you Never 3. Threaten you with harm Never 4. Physically hurt you Never 5. Force or pressure you to have sexual contact against your will, or when you were unable to say no Never ?? The HITS tool (items 1-4 above) is US copyright protected by Humberto Brewster MD, and the user has full rights to use it throughout the [facility] system. PRIMARY SCREEN RESULT: The Primary Screen is NEGATIVE. The individual answered never to all forms of IPV above (i.e., answered never to all 5 items) The individual accepts education and/or resources: No EDUCATION: The individual indicated readiness to learn. Education offered during this session as noted above. The individual indicated understanding by asking relevant questions and making appropriate comments. No barriers to learning were observed or identified. Eye Care At-Risk Screen : Patient identified to be at risk for the following eye condition(s): DIABETIC RETINOPATHY: Diabetes Diagnosis Information: Encounter Diagnosis: 01/04/2024@09:00 E11.51 (ICD-10-CM) Type 2 Diabetes Mellitus with Diabetic Peripheral Angiopathy without Gangrene rank: SECONDARY Prov. Narr. - Type 2 Diabetes Mellitus with Diabetic Peripheral Angiopathy without Gangrene Action: No Referral Ordered: The patient declined/refused referral for Tele-Eye screening and Eye Clinic appointment. Comment: decline /es/ FATUMA FERNANDEZ LPN PACT 10 Signed: 01/12/2024 10:26 FATUMA FERNANDEZ Jan 12, 2024 05:59 AM PHYSICIAN NOTE: LOCAL TITLE: MD NOTE STANDARD TITLE: PHYSICIAN NOTE DATE OF NOTE: JAN 12, 2024@05:59 ENTRY DATE: JAN 12, 2024@06:00:04 AUTHOR: ANDERS MCCORMICK EXP COSIGNER: URGENCY: STATUS: COMPLETED HISTORY OF PRESENT ILLNESS: EMILY SEGURA, is a 83 yo MALE , who presents at the [facility] for his annual visit. He maintains a nonVA PCP: Dr Luciano Devlin Pt leaves for [place] Sep 19 to December 18 every year. He is also established with [facility]. His Morgan was a former patient of mine. He utilizes audiology and podiatry services at the [place]. Active problems - Computerized Problem List is the source for the followin. Benign prostatic hypertrophy 2. Dysphagia 3. Glaucoma suspect 4. Sensorineural hearing loss, bilateral 5. Diabetic peripheral neuropathy 6. Type 2 diabetes mellitus 7. Gastroesophageal reflux disease 8. Congenital pes planus 9. Essential hypertension 10. Hyperlipidemia 11. Colonoscopy Screening 12. Obesity 13. Primary Care Physician Active and Recently Outpatient Medications (including Supplies): Active Non-VA Medications Status ======= 1) Non-VA ALOGLIPTIN 12.5MG TAB 12.5MG BY MOUTH ONCE ACTIVE DAILY 2) Non-VA AMLODIPINE BESYLATE 10MG TAB 10MG BY MOUTH ACTIVE EVERY DAY 3) Non-VA ASPIRIN 81MG EC TAB 81MG BY MOUTH DAILY ACTIVE 4) Non-VA ATORVASTATIN CALCIUM 80MG TAB 80MG BY MOUTH AT ACTIVE BEDTIME 5) Non-VA CYANOCOBALAMIN TAB BY MOUTH ONCE DAILY ACTIVE 6) Non-VA FINASTERIDE 5MG TAB 5MG BY MOUTH EVERY DAY ACTIVE 7) Non-VA HYDROCHLOROTHIAZIDE 25MG TAB 25MG BY MOUTH ACTIVE DAILY 8) Non-VA KETOCONAZOLE 2% CREAM SMALL AMOUNT TOPICALLY ACTIVE ONCE DAILY 9) Non-VA LISINOPRIL 20MG TAB 20MG BY MOUTH DAILY ACTIVE 10) Non-VA MAGNESIUM OXIDE TAB BY MOUTH TWICE DAILY ACTIVE 11) Non-VA METFORMIN HCL 1000MG TAB 1000MG BY MOUTH TWICE ACTIVE DAILY BEFORE A MEAL 12) Non-VA OMEPRAZOLE 20MG EC CAP 20MG BY MOUTH EVERY ACTIVE MORNING 30 MINUTES BEFORE BREAKFAST ALLERGIES: ========= Patient has answered NKA HISTORY: PERIOD OF SERVICE - [employer] [facility] FROM May TO May COMBAT SERVICE INDICATED: No VITAL SIGNS: Blood Pressure 129/81 (01/12/2024 10:16) Pulse 67 (01/12/2024 10:16) Respiration 18 (01/12/2024 10:16) Pulse Oximetry 97% (01/12/2024 10:16) Temperature 97.4 F [36.3 C] (01/12/2024 10:16) Pain 0 (01/12/2024 10:16) Height 69 in [175.3 cm] (01/12/2024 10:16) Weight 217.2 lb [98.52 kg] (01/12/2024 10:16) BMI BMI: 32.1 REVIEW OF SYSTEMS: CARDIOVASCULAR: No chest pain RESPIRATORY: No SOB, no wheezing GASTROINTESTINAL: No abd pain, no N/V/D GENITOURINARY: No dysuria, no hematuria MUSCULOSKELETAL: No joint pain, no joint swelling PSYCHIATRIC: No anxiety, no trouble sleeping, no depression NEUROLOGIC: No H/A, no numbness, no weakness, no tingling EXAMINATION: GENERAL: WD/WN , pleasant & in NAD HEENT: Moist mucosa NECK: Supple, no carotid bruits HEART: RRR, S1-S2, no murmurs LUNGS: CTA B/L, no wheezes ABDOMEN: Soft, NT/ND, + BS x 4 Quads PERIPH PULSES: 2+ B/L EXTREMITIES: FROM x 4, no edema NEUROLOGIC: AAO x3, no focal findings PSYCHIATRIC: Good eye contact, affect normal ASSESSMENT/PLAN: 1. Hypertension: well controlled on amlodipine 10mg/day, lisinopril/HCTZ 10mg/12.5mg/daily 2. Hyperlipidemia: on atorvastatin 80mg/QHS 3. DM Type 2: on metformin 1000mg BID and empagliflozin 12.5mg/daily Eye exam: 2021 - [facility] - neg DR Podiatry Exam: 20[facility] - [facility] Microalbuminuria: 10/14/22 - mildly pos 4. GERD: sxs improved on omeprazole 20mg/day 5. Obesity: BMI ~32, counseled on weight loss 6. Congenital Pes Planus: managed by [facility] pod[facility]ry 7. BPH: on finasteride 5mg/day, managed by Dr Salazar 8. Right Knee End Stage OA: managed by Dr Marques/MI w/LILLY's Q3 mths FOLLOW UP: 1 year - Annual - vet to bring PCP labs ========= UPCOMING APPOINTMENTS: 06/06/2024 09:00 CWM/SO/PODIATRMirian/PATRICIA No barriers; Patient understands and agrees to current treatment plan. If pt has any questions, concerns, or changes in current health status he/she will call or come in to the [facility]. Medication Reconciliation: Outpatient: Has the patient been taking medications [...] JLV. Allergies/ADRs (Tool #5) FACILITY ALLERGY/ADR -------- [facility] No Known Allergies [facility] NO KNOWN ALLERGIES Med Recon NoGrosejaiden (Tool #1) INCLUDED IN THIS LIST: Alphabetical list of active outpatient prescriptions dispensed from this [facility] (local) and dispensed from another [facility] or [facility] facility (remote) as well as inpatient orders (local pending and active), local clinic medications, locally documented non-VA medications, and local prescriptions that have or been discontinued in the past 90 days. Non-VA Meds Last Documented On: Jul 07, 2021 NOTE The display of VA prescriptions dispensed from another [facility] or [facility] facility (remote) is limited to active outpatient prescription entries matched to National Drug File at the originating site and may not include some items such as investigational drugs, compounds, etc. NOT INCLUDED IN THIS LIST: Medications self-entered by the patient into personal health records (i.e. [employer]) are NOT included in this list. Non-VA medications documented outside this [facility], remote inpatient orders (regardless of status) and remote clinic medications are NOT included in this list. The patient and provider must always discuss medications the patient is taking, regardless of where the medication was dispensed or obtained. ------ Non-VA ALOGLIPTIN 12.5MG TAB TAKE ONE TABLET BY MOUTH ONCE DAILY Patient wants to buy from Non-VA pharmacy. Non-VA AMLODIPINE BESYLATE 10MG TAB TAKE ONE TABLET BY MOUTH EVERY DAY filled through [facility] Non-VA ASPIRIN 81MG EC TAB TAKE ONE TABLET BY MOUTH DAILY Patient wants to buy from Non-[facility] pharmacy. Non-VA ATORVASTATIN CALCIUM 80MG TAB TAKE ONE TABLET BY MOUTH AT BEDTIME Filled by [facility] Non-VA CYANOCOBALAMIN TAB TAKE BY MOUTH ONCE DAILY Patient wants to buy from Non-[facility] pharmacy. Medication prescribed by Non-[facility] provider. Remote EMPAGLIFLOZIN 25MG TAB TAKE ONE-HALF TABLET BY MOUTH DAILY FOR DIABETES (CONTACT PROVIDER IF GENITAL RASH OCCURS) Last Filled: 12/31/23 (Active at [facility]) Rx Expiration Date: 10/12/24 Days Supply: 90 Non-VA FINASTERIDE 5MG TAB TAKE ONE TABLET BY MOUTH EVERY DAY filled by [facility] Remote FINASTERIDE 5MG TAB TAKE ONE TABLET BY MOUTH DAILY FOR PROSTATE ENLARGEMENT Last Filled: 12/12/23 (Active at [facility]) Rx Expiration Date: 09/19/24 Days Supply: 90 Remote HYDROCHLOROTHIAZIDE 12.5MG/LISINOPRIL 10MG TAB TAKE 1 TABLET BY MOUTH DAILY FOR HIGH BLOOD PRESSURE FOR BLOOD PRESSURE, KIDNEY PROTECTION AND/OR HEART Last Filled: 10/12/23 (Active at [facility]) Rx Expiration Date: 10/12/24 Days Supply: 90 Non-VA HYDROCHLOROTHIAZIDE 25MG TAB TAKE ONE TABLET BY MOUTH DAILY Medication prescribed by Non-[facility] provider. Non-VA KETOCONAZOLE 2% CREAM APPLY A SMALL AMOUNT TOPICALLY ONCE DAILY Patient wants to buy from Non-[facility] pharmacy. Non-VA LISINOPRIL 20MG TAB TAKE ONE TABLET BY MOUTH DAILY Medication prescribed by Non-[facility] provider. Remote MAGNESIUM OXIDE 420MG TAB TAKE TWO TABLETS BY MOUTH TWICE A DAY FOR LOW MAGNESIUM Last Filled: 10/07/23 (Active at [facility]) Rx Expiration Date: 10/06/24 Days Supply: 90 Non-VA MAGNESIUM OXIDE TAB TAKE BY MOUTH TWICE DAILY Medication prescribed by Non-[facility] provider. Non-VA METFORMIN HCL 1000MG TAB TAKE ONE TABLET BY MOUTH TWICE DAILY BEFORE A [facility]AL [facility] OMEPRAZOLE 20MG CAP,EC TAKE ONE CAPSULE BY MOUTH EVERY MORNING BEFORE EATING FOR STOMACH Last Filled: 11/22/23 (Active at [facility]) Rx Expiration Date: 10/06/24 Days Supply: 90 Non-VA OMEPRAZOLE 20MG EC CAP TAKE 1 CAPSULE BY MOUTH EVERY MORNING 30 MINUTES BEFORE BREAKFAST Filled by [facility] Remote POLYETHYLENE GLYCOL 3350 PWDR,ORAL MIX 17GM (PER MEASURING CAP) BY MOUTH DAILY FOR CONSTIPATION (MIX IN WATER OR JUICE DIRECTED FOR CONSTIPATION) Last Filled: 10/07/23 (Active at [facility]) Rx Expiration Date: 10/06/24 Days Supply: 30 ------ SUPPLIES ------ Hemoglobin A1C: Patient declines Hemoglobin A1C testing at this time. /oniel/ ANDERS MCCORMICK MD Primary Care Physician Signed: 01/12/2024 11:00 ANDERS MCCORMICK [facility]
--- OUTSIDE RECORDS SUMMARY | 2025-01-01 13:39 | XMS_ITS | Encounter Summary ---
Author Name [facility] [place] [facility] [place] [facility] [place] Address [address] [place] [address] Care Team Providers Care Java Security Engineer Name Role Phone ANDERS MCCORMICK Primary Care [...] CENTER) Oct 20, 2009 MEDICAR E ADV [id number] Ry SEGURA PATIENT [facility] ([facility]) MEDICARE ADVANTAGE MCR ([facility]) Oct 20, 2009 [id number] Ry SEGURA PATIENT Selected Encounter This section includes the information on record at [place] for the Encounter. Date/Time Encounter Type Encounter Description Reason Provider Source Jun 06, 2024 09:00 AM OFFICE O/P EST MOD 30 MIN PODIATRY ICD-10-CM L60.0 Ingrowing nail URVASHI GOMEZ Encounter Template Text not used by [facility] Assessments - Encounter Diagnoses This section includes the primary and secondary diagnoses documented for the Encounter. Date/Time Primary/Secondary Diagnosis Diagnosis Name Provider Source Jun 06, 2024 09:26 AM PRIMARY Ingrowing nail URVASHI GOMEZ [place] Jun 06, 2024 09:26 AM SECONDARY Charcot's joint, right ankle and foot URVASHI GOMEZ [place] Jun 06, 2024 09:26 AM SECONDARY Pain in left toe(s) URVASHI GOMEZ [place] Jun 06, 2024 09:26 AM SECONDARY Pain in right toe(s) URVASHI GOMEZ [place] Jun 06, 2024 09:26 AM SECONDARY Type 2 diabetes w diabetic peripheral angiopath w/o gangrene URVASHI GOMEZ [place] Plan of Treatment: Future Appointments (+ 6 months) and Future Tests (+/- 45 days) The Plan of Treatment section includes future care activities for the patient [facility] [place] [facility] This section includes future appointments and future orders which are active, pending or scheduled. Future Appointments This section includes appointments that were scheduled to occur 6 months from the date of the Encounter, up to a maximum of 20 appointments. The data comes from all [facility] facilities. Appointment Date/Time Appointment Type Appointme nt Facility Name Oct 30, 2024 11:00 AM AMBULATORY - MEDICINE [facility] Nov 13, 2024 01:30 PM AMBULATORY - NONE [facility] Nov 21, 2024 12:45 PM AMBULATORY - NONE [facility] Dec 04, 2024 05:30 PM AMBULATORY - NONE [facility] Dec 04, 2024 06:00 PM AMBULATORY - NONE [facility] Social History: Smoking Status (Most current) and Tobacco Use (All prior to encounter date) This section includes the most current, and the historical, smoking and tobacco- related health factors from the [place] facility where the Encounter took place. Current Smoking Status This section includes the most current smoking, or tobacco-related health factor, from the [place] facility where the Encounter took place. Date/Time Current Smoking Status Comment Lidnsey grijalva Jan 12, 2024 10:00 AM [place]-TOBACCO NEVER USED [place] Tobacco Use History This section includes a history of the smoking, or tobacco-related health factors, that were collected on or before the date of the Encounter. The data comes from the [place] facility where the Encounter took place. Date/Time Smoking Status/Tobacco Use Comment F acility Jul 07, 2022 10:00 AM [place]-TOBAC[place] FORMER USER [place] Jul 07, 2022 10:00 AM [place]-TOBACCO QUIT 15 YRS OR MORE [facility] Jul 07, 2021 01:30 PM VA-TOBACCO FORMER USER [place] Jul 07, 2021 01:30 PM VA-TOBACCO QUIT 15 YRS OR MORE [facility] Apr 13, 2019 04:47 PM VA-TOBACCO FORMER USER [place] Apr 13, 2019 04:47 PM VA-TOBACCO QUIT 15 YRS OR MORE [facility] May 05, 2018 05:56 AM QUIT TOBACCO USE > 7 YEARS AGO Quit in [facility] Advance Directives: All historical and current Section Date Range: From patient's date of to the date document was created. This section includes ALL of a patient's completed or amended [place] Advance and Rescinded Directives. The entries below indicate that a directive exists for the patient, but an actual copy is not included with this document. The data comes from all [place] facilities. Date Advance Directives Provider Source Apr 26, 2017 ADVANCE DIRECTIVE LORENE NAVA [facility] Encounter Notes: All associated encounter notes This section contains the clinical notes associated to the Encounter. Date/Time Encounter Note(s) Provider Source Jun 06, 2024 09:34 AM PODIATRY NOTE: LOCAL TITLE: PODIATRY PAVE FOOT EXAM STANDARD TITLE: PODIATRY NOTE DATE OF NOTE: JUN 06, 2024@09:34 ENTRY DATE: JUN 06, 2024@09:35:11 AUTHOR: URVASHI GOMEZ COSIGNER: URGENCY: STATUS: COMPLETED PAVE FOOT EXAM A foot risk level was completed. The following risk level was identified for this patient: +POD RISK SCORE+ *--LEVEL 3 - (HIGH RISK)* ANY of the following: Severe obstructive peripheral arterial disease Ulceration; OR history of ulceration, osteomyelitis, or amputation Charcot joint w/foot deformity Chronic kidney disease, stage 4 or higher (Decreased sensation, foot deformity, and minor foot infection may be present or absent) LEVEL 3 FOOT EDUCATION: 1. Advised patient that extra depth footwear with soft molded inserts and braces may be required. 2. Advised patient not to walk barefoot. Instructed the patient to pay close attention to the style and fit of shoes. 3. Explained the importance of daily foot checks. Explained that loss of sensation leads to callouses. Callouses break down, which result in ulcers that may lead to gangrene and amputation. 4. Stressed the importance of daily foot hygiene. Warm (not hot) bathing of the feet, complete drying and thorough inspection for changes in the condition of the skin constitute daily foot care. Demonstrated how to do a thorough foot check. 5. Emphasized the use of clean, non-restrictive socks/stockings and well fitting shoes. 6. Stressed the importance of immediate follow-up of any foot injuries or ulcers. Explained that he/she should be non-weight bearing whenever there are lesions on the foot, to prevent cellular damage. Level of Understanding: Good Patient/Family Response to Foot Care Teaching Patient walks barefoot: A few times per month Patient/caregiver able to clean feet at least once daily: Yes Patient/caregiver has difficulty examining feet: No /oniel/ URVASHI GOMEZ DPM AUTOMATIC PUNCH PRESS OPERATOR Signed: 06/06/2024 09:35 URVASHI GOMEZ [place] Jun 06, 2024 07:34 AM PODIATRY NOTE: LOCAL TITLE: PODIATRY NOTE STANDARD TITLE: PODIATRY NOTE DATE OF NOTE: JUN 06, 2024@07:34 ENTRY DATE: JUN 06, 2024@07:34:04 AUTHOR: URVASHI GOMEZ EXP COSIGNER: URGENCY: STATUS: COMPLETED NOTE: HAS RECEIVED BOTH COVID VACCINE DOSES + 2 BOOSTERS AT [facility] LAST SEEN FOR TREATMENT: 01/04/2024 S: Pt. is an 83 yo alert [...] present physical-medical status. Protective sensation utilizing a [place]-Yash lOg monofilament is 10/10 bilateral. A: Clinical [...] AND CALLED MEGA TODAY FOR RESCHEDULING RTC: 12/26/@ 9AM)WILL BE IN [place] FROM 09/19 TO 12/18/2024 I DISCUSSED THE FINDINGS & PLAN WITH PATIENT (UNCHANGED SINCE PREVIOUS VISIT) & PATIENT AGREES AND UNDERSTANDS PLAN-RECEIVED MIRROR PATIENT REQUESTED NEW THERAPEUTIC DRESS SHOES FROM [place] AND ORDER PLACED TODAY ALSO ORDERED A FOOT BRACE TO ACCOMMODATE CHARCOT DEFORMITY RT FOOT WHICH IS PAINFUL AND PREVENTING NORMAL ACTIVITIES AND HE IS NOT A CANDIDATE FOR SURGICAL CORRECTION AT THIS TIME. Medication Reconciliation: PERFORMED TODAY - SEE BELOW. Outpatient: Has the patient been taking medications as documented in the EMLR? YES: The patient has been taking medications as documented in the EMLR. Essential Medication List for Review used to complete this medication reconciliation. INCLUDED IN THIS LIST: Alphabetical list of active outpatient prescriptions dispensed from this [place] (local) and dispensed from another [place] or [facility] facility (remote) as well as inpatient orders [...] [facility] No Known Allergies [facility] NO KNOWN ALLERGIES Med Recon NoGlossary (Tool #1) INCLUDED IN THIS LIST: Alphabetical list of active outpatient prescriptions dispensed from this [place] (local) and dispensed from another [facility] or [...] the patient into personal health records (i.e. [employer]) are NOT included in this list. Non-VA medications documented outside this VA, remote inpatient orders (regardless of status) and remote clinic medications are NOT included in this list. The patient and provider must always discuss medications the patient is taking, regardless of where the medication was dispensed or obtained. Non-VA ALOGLIPTIN 12.5MG TAB TAKE ONE TABLET BY MOUTH ONCE DAILY Patient wants to buy from Non-[place] pharmacy. Non-[place] AMLODIPINE BESYLATE 10MG TAB TAKE ONE TABLET BY MOUTH EVERY DAY filled through [facility] Remote AMLODIPINE BESYLATE 10MG TAB TAKE ONE TABLET BY MOUTH DAILY FOR BLOOD PRESSURE Last Filled: 04/12/24 (Active at [facility]) Rx Expiration Date: 01/17/25 Days Supply: 90 Non-VA ASPIRIN 81MG EC TAB TAKE ONE TABLET BY MOUTH DAILY Patient wants to buy from Non[place] pharmacy. Remote ATORVASTATIN CA 80MG TAB TAKE ONE TABLET BY MOUTH AT BEDTIME FOR CHOLESTEROL - REPLACES ROSUVASTATIN Last Filled: 04/12/24 (Active at [facility]) Rx Expiration Date: 01/17/25 Days Supply: 90 Non-VA ATORVASTATIN CALCIUM 80MG TAB TAKE ONE TABLET BY MOUTH AT BEDTIME Filled by [facility] Non-VA CYANOCOBALAMIN TAB TAKE BY MOUTH ONCE DAILY Patient wants to buy from Non[place] pharmacy. Medication prescribed by Non-VA provider. Remote EMPAGLIFLOZIN 25MG TAB TAKE ONE-HALF TABLET BY MOUTH DAILY FOR DIABETES (CONTACT PROVIDER IF GENITAL RASH OCCURS) Last Filled: 12/31/23 (Active at [facility]) Rx Expiration Date: 10/12/24 Days Supply: 90 OUTPT EMPAGLIFLOZIN 25MG TAB (Status = Active) TAKE ONE-HALF TABLET BY MOUTH ONCE DAILY FOR TYPE 2 DIABETES MELLITUS Rx# [id number] Last Released: 04/09/24 Qty/Days Supply: Rx Expiration Date: 04/07/25 Refills Remainin Indication: FOR TYPE 2 DIABETES MELLITUS Non-VA FINASTERIDE 5MG TAB TAKE ONE TABLET BY MOUTH EVERY DAY filled by [facility] Remote FINASTERIDE 5MG TAB TAKE ONE TABLET BY MOUTH DAILY FOR PROSTATE ENLARGEMENT Last Filled: 06/06/24 (Active at [facility]) Rx Expiration Date: 09/19/24 Days Supply: 90 Remote HYDROCHLOROTHIAZIDE 12.5MG/LISINOPRIL 10MG TAB TAKE 1 TABLET BY MOUTH DAILY FOR HIGH BLOOD PRESSURE FOR BLOOD PRESSURE, KIDNEY PROTECTION AND/OR HEART Last Filled: 03/05/24 (Active at [facility]) Rx Expiration Date: 10/12/24 Days Supply: 90 OUTPT HYDROCHLOROTHIAZIDE 25MG TAB (Status = Active) TAKE ONE-HALF TABLET BY MOUTH ONCE DAILY FOR HIGH BLOOD PRESSURE Rx# [id number] Last Released: 04/17/24 Qty/Days Supply: Rx Expiration Date: 07/16/24 Refills Remainin Indication: FOR HIGH BLOOD PRESSURE Non-VA KETOCONAZOLE 2% CREAM APPLY A SMALL AMOUNT TOPICALLY ONCE DAILY Patient wants to buy from Non[place] pharmacy. OUTPT LOSARTAN 50MG TAB (Status = Active) TAKE ONE TABLET BY MOUTH ONCE DAILY FOR HIGH BLOOD PRESSURE - THIS REPLACES LISINOPRIL. THROW AWAY LISINOPRIL WHEN YOU START THIS MEDICATION Rx# [id number] Last Released: 04/17/24 Qty/Days Supply: Rx Expiration Date: 07/16/24 Refills Remainin Indication: FOR HIGH BLOOD PRESSURE Remote MAGNESIUM OXIDE 420MG TAB TAKE TWO TABLETS BY MOUTH TWICE A DAY FOR LOW MAGNESIUM Last Filled: 05/24/24 (Active at [facility]) Rx Expiration Date: 10/06/24 Days Supply: 90 Non-VA MAGNESIUM OXIDE TAB TAKE BY MOUTH TWICE DAILY Medication prescribed by Non[place] provider. Non-[place] METFORMIN HCL 1000MG TAB TAKE ONE TABLET BY MOUTH TWICE DAILY BEFORE A MEAL from [facility] OMEPRAZOLE 20MG CAP,EC TAKE ONE CAPSULE BY MOUTH EVERY MORNING BEFORE EATING FOR STOMACH Last Filled: 05/10/24 (Active at [facility]) Rx Expiration Date: 10/06/24 Days Supply: 90 [place] OMEPRAZOLE 20MG EC CAP TAKE 1 CAPSULE BY MOUTH EVERY MORNING 30 MINUTES BEFORE BREAKFAST Filled by [facility] POLYETHYLENE GLYCOL 3350 PWDR,ORAL MIX 17GM (PER MEASURING CAP) BY MOUTH DAILY FOR CONSTIPATION (MIX IN WATER OR JUICE DIRECTED FOR CONSTIPATION) Last Filled: 10/07/23 (Active at [facility]) Rx Expiration Date: 10/06/24 Days Supply: 30 SUPPLIES OUTPT MEDICATION DISPOSAL PATIENT PKT (Status = Active) USE 1 ENVELOPE DIRECTED ONE TIME TO DISPOSE OF UNUSED MEDICATIONS Rx# [id number] Last Released: 04/17/24 Qty/Days Supply: Rx Expiration Date: 07/16/24 Refills Remainin PAVE Foot Check: A complete foot check was completed at this encounter. VISUAL INSPECTION: Includes inspection for skin breaks, deformity, erythema, trauma, pallor on elevation, dependent rubor, nail deformities, extensive callus and pitting edema. Visual exam results: Abnormal Observations: Thickened toenails PEDAL PULSES: Includes palpation of dorsalis and posterior tibial pulses and signs/symptoms of vascular compromise like pain, pallor, parasthesia or paralysis. Absent: Comment: DP & PT PULSES ARE ABSENT NON-PALPABLE BILAT SENSORY CHECK: Includes 10 gram Monofilament ([place]-Yash) test of sensation. Intact (Greater than or equal to 80% of sites checked) Abnormal (Less than 80% of sites checked): Abnormal (decreased or absent sensation to monofilament): Comment: DIMINISHED VIBRATORY BILAT HIGH-RISK: HIGH RISK INFORMATION PROVIDED: 1. Advised patient that extra depth footwear with soft molded inserts and braces may be required. 2. Advised patient not to walk barefoot. 3. Explained the importance of daily foot checks. 4. Stressed the importance of daily foot hygiene, including bathing, complete drying and thorough inspection for changes. The patient verbalized understanding and was offered a detailed handout on diabetic foot care. Patient is established patient of Podiatry and/or Vascular: Last scheduled appointment: JAN 04, 2024@09:00 OSCAR/XU/PODIATRY/PATRICIA Comment: 01/04/2024 /oniel/ URVASHI GOMEZ DPM AUTOMATIC PUNCH PRESS OPERATOR Signed: 06/06/2024 09:31 URVASHI GOMEZ
--- OUTSIDE RECORDS SUMMARY | 2025-01-01 13:39 | XMS_ITS | Encounter Summary ---
Author Name [facility] Address [address] [place] [address] Care Team Providers Care Systems Auditor Name Role Phone ANDERS MCCORMICK Primary Care [...] [place] [facility] [facility]IC[facility]VANT[facility] MCR ([facility]) Oct 20, 2009 MEDICAR E ADV [id number] Ry SEGURA PATIENT [facility] ([facility]) MEDICARE ADVANTAGE MCR ([facility]) Oct 20, 2009 [id number] Ry SEGURA PATIENT Selected Encounter This section includes the information on record at [place] for the Encounter. Date/Time Encounter Type Encounter Description Reason Provider Source Oct 30, 2024 11:00 AM [place]BRIDE NAIL 6 OR MORE PODIATRY ICD-10-CM L60.0 Ingrowing nail ANDERS TRAORE Encounter Template Text not used by [facility] Assessments - Encounter Diagnoses This section includes the primary and secondary diagnoses documented for the Encounter. Date/Time Primary/Secondary Diagnosis Diagnosis Name Provider Source Oct 30, 2024 05:44 PM PRIMARY Ingrowing nail ANDERS TRAORE [facility] Oct 30, 2024 05:44 PM SECONDARY Congenital pes planus, unspecified foot ANDERS TRAORE [facility] Oct 30, 2024 05:44 PM SECONDARY Pain in right ankle and joints of right foot ANDERS TRAORE [facility] Oct 30, 2024 05:44 PM SECONDARY Type 2 diabetes mellitus with diabetic nephropathy ANDERS TRAORE [facility] Plan of Treatment: Future Appointments (+ 6 months) and Future Tests (+/- 45 days) The Plan of Treatment section includes future care activities for the patient from all [facility] This section includes future appointments and future orders which are active, pending or scheduled. Future Appointments This section includes appointments that were scheduled to occur 6 months from the date of the Encounter, up to a maximum of 20 appointments. The data comes from all [facility] facilities. Appointment Date/Time Appointment Type Appointme nt Facility Name Nov 13, 2024 01:30 PM AMBULATORY - NONE [facility] Nov 21, 2024 12:45 PM AMBULATORY - NONE [facility] Dec 04, 2024 05:30 PM AMBULATORY - NONE [facility] Dec 04, 2024 06:00 PM AMBULATORY - NONE [facility] Dec 26, 2024 09:00 AM AM[facility]ULATORY - MEDICINE [facility] Dec 31, 2024 09:00 AM [facility] Jan 16, 2025 09:00 AM [facility] Social History: Smoking Status (Most current) and Tobacco Use (All prior to encounter date) This section includes the most current, and the historical, smoking and tobacco- related health factors from the [place] facility where the Encounter took place. Current Smoking Status This section includes the most current smoking, or tobacco-related health factor, from the [place] facility where the Encounter took place. Date/Time Current Smoking Status Burt grijalva Oct 12, 2023 09:30 AM VA-TOBACCO FORMER USER [facility] Tobacco Use History This section includes a history of the smoking, or tobacco-related health factors, that were collected on or before the date of the Encounter. The data comes from the [place] facility where the Encounter took place. Date/Time Smoking Status/Tobacco Use Comment F acility Oct 12, 2023 09:30 AM VA-TOBACCO QUIT 15 YRS OR MORE [facility] Oct 13, 2022 10:30 AM VA-TOBACCO FORMER USER [facility] Oct 13, 2022 10:30 AM VA-TOBACCO QUIT 15 YRS OR MORE [facility] Oct 23, 2021 10:30 AM VA-TOBACCO FORMER USER [facility] Oct 23, 2021 10:30 AM VA-TOBACCO QUIT 15 YRS OR MORE [facility] Jan 14, 2020 08:45 AM VA-TOBACCO FORMER USER [facility] Jan 14, 2020 08:45 AM VA-TOBACCO QUIT 15 YRS OR MORE [facility] Jun 07, 2018 01:13 PM VA-TOBACCO FORMER USER [facility] Jun 07, 2018 01:13 PM VA-TOBACCO QUIT 15 YRS OR MORE [facility] Jan 09, 2018 08:28 AM NON-TOBACCO USER [facility] Jul 08, 2017 08:00 AM NON-TOBACCO USER [facility] Jan 04, 2017 01:56 PM NON-TOBACCO USER [facility] Sep 24, 2016 11:32 AM NON-TOBACCO USER [facility] Jul 20, 2016 10:27 AM NON-TOBACCO USER [facility] Jan 13, 2016 10:59 AM NON-TOBACCO USER [facility] Oct 13, 2015 01:40 PM NON-TOBACCO USER [facility] Jul 22, 2015 11:10 AM NON-TOBACCO USER [facility] Jan 08, 2015 07:47 AM NON-TOBACCO USER [facility] Oct 23, 2014 10:02 AM NON-TOBACCO USER [facility] Sep 30, 2014 11:51 AM NON-TOBACCO USER [facility] Sep 27, 2014 10:51 AM NON-TOBACCO USER [facility] Sep 25, 2014 01:25 PM NON-TOBACCO USER [facility] Jul 19, 2014 11:37 AM NON-TOBACCO USER [facility] Dec 25, 2013 01:23 PM NON-TOBACCO USER [facility] Jul 18, 2013 07:32 AM NON-TOBACCO USER [facility] Dec 08, 2012 02:05 PM NON-TOBACCO USER [facility] Jul 19, 2012 07:17 AM NON-TOBACCO USER [facility] Oct 13, 2011 07:46 AM NON-TOBACCO USER [facility] Jul 19, 2011 09:18 AM NON-TOBACCO USER [facility] Dec 10, 2010 07:38 AM NON-TOBACCO USER [facility] Jul 31, 2010 02:45 PM NON-TOBACCO USER [facility] Nov 17, 2009 01:30 PM NON-TOBACCO USER [facility] Oct 21, 2009 07:41 AM NON-TOBACCO USER [facility] Jul 21, 2009 07:39 AM NON-TOBACCO USER [facility] Dec 20, 2008 12:40 PM NON-TOBACCO USER [facility] Jul 18, 2008 07:23 AM NON-TOBACCO USER [facility] Nov 23, 2007 01:36 PM NON-TOBACCO USER [facility] Advance Directives: All historical and current Section Date Range: From patient's date of to the date document was created. This section includes ALL of a patient's completed or amended [place] Advance and Rescinded Directives. The entries below indicate that a directive exists for the patient, but an actual copy is not included with this document. The data comes from all [place] facilities. Date Advance Directives Provider Source Apr 26, 2017 ADVANCE DIRECTIVE LORENE NAVA Encounter Notes: All associated encounter notes This section contains the clinical notes associated to the Encounter. Date/Time Encounter Note(s) Provider Source Oct 30, 2024 11:55 AM NURSING NOTE: LOCAL TITLE: PODIATRY NURSE STANDARD TITLE: NURSING NOTE DATE OF NOTE: OCT 30, 2024@11:55 ENTRY DATE: OCT 30, 2024@17:27:39 AUTHOR: ANDERS TRAORE COSIGNER: URGENCY: STATUS: COMPLETED PODIATRY NURSE Has ADDENDA Visual foot and ankle inspection: Subjective: This 84 y/o referred for diabetic foot care and evaluation. 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 Patient stated there was no injury. Pt stated his Valerie brace had to be refitted in [place], states it is much better now-brace is not a problem he states. Let patient know this appointment is for nails, patient was hoping to see as well to get MRI done.Msg POD MD, order placed. The toenails are painful, markedly limit ambulation and exacerbated upon shoe gear and ambulation. Patient does check feet on a daily basis. Active Problems Aortic Stenosis, Non-Rheumatic (SCT 034436934) I35.0 Diverticular disease of colon K57.30 Dysphagia R13.10 Glaucoma suspect (SNOMED CT 530186013) H40.013 Hearing loss (SNOMED CT 63819860) H90.3 Diabetes mellitus (SNOMED CT 75615143) E11.21 Gastroesophageal reflux disease (SNOMED CT 931514417 K21.9 Pes planus (SNOMED CT 96986507) Q66.50 Benign hypertension (SNOMED CT 82713671) I10. Hyperlipidemia (SNOMED CT 67833491) E78.5 Polyp of colon (SNOMED CT 38776200) Z86.010 Obesity (SNOMED CT 312117755) E66.8 Active Outpatient Medications (including Supplies): AMLODIPINE BESYLATE 10MG TAB TAKE ONE TABLET BY MOUTH ACTIVE DAILY FOR BLOOD PRESSURE ATORVASTATIN CALCIUM 80MG TAB TAKE ONE TABLET BY MOUTH AT ACTIVE BEDTIME FOR CHOLESTEROL - REPLACES ROSUVASTATIN Non-VA CHOLECALCIF 25MCG (D3-1,000UNIT) TAB 25MCG BY MOUTH ACTIVE DAILY Indication: TO PREVENT VITAMIN DEFICIENCY Non-VA CYANOCOBALAMIN 1000MCG TAB 1000MCG BY MOUTH EVERY ACTIVE OTHER DAY Non-VA METFORMIN HCL 1000MG TAB 1000MG BY MOUTH TWICE A ACTIVE DAY BEFORE MEALS 5 Total Medications Patient alert and oriented x3, pleasant, cooperative and in no acute distress.Pt. denies any nausea,vomiting,fever,cough and SOB. Pain Level 1/10 pt states. Ambulatory with assistance of cane Pt. walks with steppage gait Pt. c/o related numbness and tingling in bilateral feet. Pt. reported no amputations, ulcerations, prior hospitalization due to foot infection since their most recent evaluation. Nails of digits 1-5 are thickened, and elongated . No linear scaling of the feet bilaterally No signs of infection and ulceration bilateral seen including interdigital spaces.Pt states no changes since previous evaluation, and no other complaints to address currently. Inspection of foot gear condition: White MIXING MACHINE FEEDER, Valerie AFO Right, diabetic socks present.No holes or pressure points, no objects in shoe. Proper fitting shoe. REFERENCE COLLECTION TEST NAME RESULT RANGE DATE HEMOGLOBIN A1C 6.8 SHF - Health Factor Select [facility] Podiatry Foot Exam 10/27/2023 PAVE Foot Level 1 Pact Screening 10/22/2021 Full Foot Exam Low Risk-Level 1 10/13/2020 Full Foot Exam Mod Risk-Level 2 07/20/2016 Full Foot Exam Normal Risk-Level 0 SVS - Vital Signs Measurement DT BP PULSE RESP TEMP POx F(C) (L/MIN)(%) 10/12/2023 09:58 130/81 O- SKIN Temp gradient: [place] to foot--Normal Warm No open wounds or lesions b/l Elongated dystrophic nails of digits 1 through 5,BL Nails: Incurvated b/l Texture:Skin is thin, shiny, dry, atrophic bilaterally. Turgor:WNL Hair Growth:Sparse No webspace maceration, fissures or erythema present. HPK: Absent VASC Pulses palpated bilateral Hyperpigmentation present Varicosities: Feet, Ankles CFT Normal:< 3 seconds to all digits present Edema:+1-pitting edema present b/l LE. NEURO Gross sensation intact with light touch b/l. Testing performed with [place]-Yash 5.07 monofilament test: Ten different areas were tested randomly with the patients eyes closed. Protective sensation intact with SWM 10/10 b/l. MSK Bone and joint deformities: Severe pes planus Muscle Strength:5/5 to all muscle groups that cross the ankle joint 5/5 strength in all 4 quadrants. No gross osseous deformities noted b/l. No pain with active or passive ROM b/l. Calves are soft and non-tender to palpation b/l. No c/o burning no palpable masses or evidence of recent trauma. Period of Service: (May to May) Eligibility: NSC VERIFIED A-Dystrophic Nails:Onychocryptosis P-Extensive manual debridement of toenails with removal of subungual debris of digits 1-5, bilateral, was performed with sterile nail nippers to length, height and width without incident of bleeding. Patient tolerated the procedure well. 1.Onychauxis: Debridement nail x 10 sharply with nail forceps in length, height and width. 2.Xerosis cutis: continue with use of moisturizing lotion recommended 3.Therapeutic MIXING MACHINE FEEDER shoes: Received in [employer] 4.Therapeutic socks ordered and consult placed 5 Patient to schedule MRI today order placed.RTC for pod MD after results received Patient instructed to RTC or ER if ever any redness, pus, pain, odor, shaking, chills, red streaks up the foot or leg. Patient care was discussed & understood to patient's satisfaction. The provided care for this patient was ordered and supervised by the on-call POD MD and co-signer of this note Discussed with patient the importance to continue routine follow-up with their primary care physician. Advised patient to keep their legs elevated as much as possible and to avoid keeping them in dependency. Recommended compressive stockings to treat their lower extremity edema. Instructions to patient: 1. discard old shoes 2. rotate shoes daily 3. change socks at least 2 times per day and more if needed. 4. wash feet daily with soap and water, dry well 5. always walk with shoes on feet 6. do not walk barefoot or with just socks. Always let your health care providers know right away if you have a cut or foot problem. Breaks in the skin of your feet can lead to gangrene and amputation. - Diabetes Self Care: The importance of regular professional foot care was emphasized. Instructed to check feet daily. Walking barefoot is prohibited. With loss of foot sensation ulcerations may go undetected and untreated and these ulcerations may lead to gangrene and amputation. Hot water bottles or heating pads NOT recommended. Instructed on appropriate footwear. Self-treatment with sharp, non-sterile instruments was discouraged. Soaking feet not recommended. Call office if there are any changes in the appearance of feet including redness, swelling, drainage, change in shape. Regular visits stressed even if no problems noted by patient. Diabetic precautions reviewed and understood. RTC 3 Months /oniel/ ANDERS TRAORE LPN LICENSED PRACTICAL NURSE Signed: 10/30/2024 17:44 10/30/2024 ADDENDUM STATUS: COMPLETED CLINICAL REMINDER ACTIVITY: Suicide Screen: C-SSRS Screening [place] Suicide Severity Rating Scale (C-SSRS) screener 1. Over the past month, have you [...] due to responses to other questions. /oniel/ ANDERS TRAORE LPN LICENSED PRACTICAL NURSE Signed: 10/30/2024 17:45 ANDERS TRAORE [facility]
--- OUTSIDE RECORDS SUMMARY | 2025-01-01 13:39 | XMS_ITS | Continuity of Care Document ---
Author Name [facility] Organization [facility] Care Team Providers Care Gyn Physician Name Role Phone [facility] Unavailable Unavailable Problems Combined list of problems from Department of Defense and Veterans Affairs facilities. It does not include entries that were removed or entered in error. Problem Status Onset Date Problem Type Date of Resolution Comments Source Aortic Stenosis, Non-Rheumatic (SCT 200072030) Active Condition [facility] Benign hypertension (SNOMED CT 89016837) Active Condition [facility] Benign prostatic hypertrophy Active Condition [place] Colonoscopy Screening Active Condition Apr 26, 2017 Entered By: ANDERS WOLF Comment: 07/22/2015 - +polyp - repeat 2 yrsAug 2016 Entered By: ANDERS WOLF Comment: 04/21/17 -2 polyps-bx pending [facility] Congenital pes planus Active Condition [facility] Diabetes mellitus (SNOMED CT 17351035) Active Condition [facility] Diabetic peripheral neuropathy Active Condition [facility] Diverticular disease of colon Active Condition [facility] Dysphagia Active Condition [facility] Dysphagia Active Condition Apr 21 Entered By: ANDERS WOLF Comment: 07/20/2016 Dr. [email or web address] Entered By: LORENE NAVA Comment: Endoscopy 04/21/2017 [facility] Essential hypertension Active Condition [facility] Gastroesophageal reflux disease Active Condition [facility] Gastroesophageal reflux disease (SNOMED CT 449245687) Active Condition [facility] Glaucoma suspect Active Condition May 05, 2018 Entered By: ANDERS WOLF Comment: [facility]. [facility] Glaucoma suspect (SNOMED CT 810937125) Active Condition [facility] Hearing loss (SNOMED CT 52092699) Active Condition [facility] Hyperlipidemia Active Condition [facility] Hyperlipidemia (SNOMED CT 77587111) Active Condition [facility] Obesity Active Condition [facility] Obesity (SNOMED CT 651415703) Active Condition [facility] Pes planus (SNOMED CT 58495666) Active Condition [facility] Polyp of colon (SNOMED CT 78589937) Active Condition [facility] Primary Care Physician Active Condition Jul 07, 2021 Entered By: ANDERS WOLF [facility] Entered By: ANDERS WOLF Comment: Dr Dilia Frazier - [facility] Sensorineural hearing loss, bilateral Active Condition May 05, 2018 Entered By: ANDERS WOLF Comment: Wears hearing aids both ears [facility] Type 2 diabetes mellitus Active Condition [facility] Bronchitis Inactive Condition 09/24/2016 [facility] Dysphagia, unspecified (ICD-9-CM 787.20) Inactive Condition 10/13/2011 [facility] Diagnosis: ICD-10-CM M14.671 Charcot's joint, right ankle and foot Active Diagnosis [place] Diagnosis: ICD-10-CM L60.3 Nail dystrophy Active Diagnosis [facility] Diagnosis: ICD-10-CM Z46.1 Encounter for fitting and adjustment of hearing aid Active Diagnosis [facility] Diagnosis: ICD-10-CM L60.0 Ingrowing nail Active Diagnosis [facility] Diagnosis: ICD-10-CM I10 Essential (primary) hypertension Active Diagnosis [place] Diagnosis: ICD-10-CM 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 Diagnosis [facility] Diagnosis: ICD-10-CM R13.10 Dysphagia, unspecified Active Diagnosis [facility] Diagnosis: ICD-10-CM E11.51 Type 2 diabetes w diabetic peripheral angiopath w/o gangrene Active Diagnosis [facility] Diagnosis: ICD-10-CM J20.9 Acute bronchitis, unspecified Active Diagnosis [facility] Diagnosis: ICD-10-CM Z23 Encounter for immunization Active Diagnosis [place] Medications Combined list of outpatient medications from Department of Defense and Veterans Affairs facilities.Medications provided include 1) outpatient medications from the last 15 months, and 2) patient-reported medications. Medication Details Route Status Patient Instructions Prescription Expires Prescription Number Last Dispense Date Ordering Provider Order Date Order Qty Source ALOGLIPTIN 12.5MG TAB TAKE ONE TABLET BY MOUTH ONCE DAILY ORAL ACTIVE ADRIANA WOLF SA [facility] AMLODIPINE BESYLATE 10MG TAB TAKE ONE TABLET BY MOUTH DAILY FOR BLOOD PRESSURE ORAL ACTIVE 01/17/2025 [id number] 5 BRNENAN FRAZIER MD [address] [place] [address] AMLODIPINE BESYLATE 10MG TAB TAKE ONE TABLET BY MOUTH DAILY FOR BLOOD PRESSURE ORAL DISCONT INUED 12/21/2023 [id number] BRENNAN FRAZIER MD [address] [place] [address] AMLODIPINE BESYLATE 10MG TAB TAKE ONE TABLET BY MOUTH EVERY DAY ORAL ACTIVE ADRIANA WOLF SA 2016 [facility] ASPIRIN 81MG TAB,EC TAKE ONE TABLET BY MOUTH DAILY ORAL ACTIVE ADRIANA WOLF SA 2016 [facility] ATORVASTATI N CA 80MG TAB TAKE ONE TABLET BY MOUTH AT BEDTIME FOR CHOLESTE ROL - REPLACES ROSUVAST ATIN ORAL ACTIVE 01/17/2025 [id number] 5 BRENNAN FRAZIER MD [address] [place] [address] ATORVASTATI N CA 80MG TAB TAKE ONE TABLET BY MOUTH AT BEDTIME FOR CHOLESTE ROL - REPLACES ROSUVAST ATIN ORAL DISCONT INUED 12/21/2023 [id number] BRENNAN FRAZIER MD [address] [place] [address] ATORVASTATI N CA 80MG TAB TAKE ONE TABLET BY MOUTH AT BEDTIME ORAL ACTIVE ADRIANA WOLF SA 2016 [facility] CHOLECALCIF JOSELYN 25MCG (1,000UNIT) TAB TAKE ONE TABLET BY MOUTH DAILY ORAL ACTIVE DONOVAN VÁSQUEZ Ry 2023 [facility] CYANOCOBALA MIN 1000MCG TAB TAKE ONE TABLET BY MOUTH EVERY OTHER DAY ORAL ACTIVE BRENNAN FRAZIER MD 2019 [facility] CYANOCOBALA MIN TAB TAKE BY MOUTH ONCE DAILY ORAL ACTIVE ADRIANA WOLF SA 2020 [facility] EMPAGLIFLOZ IN 25MG TAB TAKE ONE-HALF TABLET BY MOUTH ONCE DAILY FOR TYPE 2 DIABETES MELLITUS ORAL ACTIVE 04/07/2025 [id number] 5 ADRIANA WOLF SA 2023 [address] [place] EMPAGLIFLOZ IN 25MG TAB TAKE ONE-HALF TABLET BY MOUTH DAILY FOR DIABETES (CONTACT PROVIDER IF GENITAL RASH OCCURS) ORAL 10/12/2024 [id number] 4 BRENNAN FRAZIER MD 2023 45 [facility] FINASTERIDE 5MG TAB TAKE ONE TABLET BY MOUTH DAILY FOR PROSTATE ENLARGEM ENT ORAL 09/19/2024 [id number] 4 BRENNAN FRAZIER MD 2023 90 [facility] FINASTERIDE 5MG TAB TAKE ONE TABLET BY MOUTH EVERY DAY ORAL ACTIVE ADRIANA WOLF SA 2016 [facility] HYDROCHLORO THIAZIDE 12.5MG/CANDELARIO NOPRIL 10MG TAB TAKE 1 TABLET BY MOUTH DAILY FOR HIGH BLOOD PRESSURE FOR BLOOD PRESSURE , KIDNEY PROTECTI ON AND/OR HEART ORAL 10/12/2024 [id number] 4 BRENNAN FRAZIER MD 2023 90 [facility] HYDROCHLORO THIAZIDE 25MG TAB TAKE ONE-HALF TABLET BY MOUTH ONCE DAILY FOR HIGH BLOOD PRESSURE ORAL ACTIVE 09/07/2025 [id number] 4 ADRIANA WOLF SA 2023 [address] [place] HYDROCHLORO THIAZIDE 25MG TAB TAKE ONE-HALF TABLET BY MOUTH ONCE DAILY FOR HIGH BLOOD PRESSURE ORAL DISCONT INUED (EDIT) 10/13/2024 [id number] 4 ADRIANA WOLF SA 2023 45 [place] HYDROCHLORO THIAZIDE 25MG TAB TAKE ONE-HALF TABLET BY MOUTH ONCE DAILY FOR HIGH BLOOD PRESSURE ORAL DISCONT INUED 07/16/2025 [id number] ADRIANA WOLF SA 2023 15 [place] HYDROCHLORO THIAZIDE 25MG TAB TAKE ONE-HALF TABLET BY MOUTH ONCE DAILY FOR HIGH BLOOD PRESSURE ORAL DISCONT INUED (EDIT) 07/16/2024 [id number] 4 CHRISSIE YEUNG 2023 [address] [place] KETOCONAZOL E 2% CREAM,TOP APPLY A SMALL AMOUNT TOPICALL Y ONCE DAILY TOPICA L ACTIVE ADRIANA WOLF SA 2017 [facility] LIDOCAINE 5% PATCH APPLY 1 PATCH TOPICALL Y ONCE DAILY FOR NERVE PAIN (LEAVE PATCH ON FOR 12 HOURS, THEN REMOVE PATCH) TOPICA L ACTIVE 06/28/2025 [id number] 4 ADRIANA WOLF SA 2023 [address] [place] LOSARTAN 50MG TAB TAKE ONE TABLET BY MOUTH ONCE DAILY FOR BLOOD PRESSURE /HEART ORAL ACTIVE 09/07/2025 [id number] 5 ADRIANA WOLF SA 2023 [address] [place] LOSARTAN 50MG TAB TAKE ONE TABLET BY MOUTH ONCE DAILY FOR BLOOD PRESSURE /HEART ORAL DISCONT INUED (EDIT) 07/16/2025 [id number] 4 ADRIANA WOLF SA 2023 [address] [place] LOSARTAN 50MG TAB TAKE ONE TABLET BY MOUTH ONCE DAILY FOR BLOOD PRESSURE /HEART ORAL DISCONT INUED 07/16/2025 [id number] 4 ADRIANA WOLF SA 2023 30 [place] LOSARTAN 50MG TAB TAKE ONE TABLET BY MOUTH ONCE DAILY FOR HIGH BLOOD PRESSURE - THIS REPLACES LISINOPR [place]. THROW AWAY LISINOPR [place] WHEN YOU START THIS MEDICATI ON ORAL DISCONT INUED (EDIT) 07/16/2024 [id number] 4 CHRISSIE YEUNG 2023 [address] [place] MAGNESIUM OXIDE 420MG TAB TAKE TWO TABLETS BY MOUTH TWICE A DAY FOR LOW MAGNESIU M ORAL 10/06/2024 [id number] 4 DONOVAN VÁSQUEZ 2023 400 [facility] MAGNESIUM OXIDE TAB TAKE BY MOUTH TWICE DAILY ORAL ACTIVE ADRIANA WOLF SA 2016 [facility] METFORMIN HCL 1000MG TAB TAKE ONE TABLET BY MOUTH TWICE DAILY BEFORE A MEAL ORAL ACTIVE ADRIANA WOLF SA 2016 [facility] METFORMIN HCL 1000MG TAB TAKE ONE TABLET BY MOUTH TWICE A DAY BEFORE MEALS ORAL ACTIVE SAFIA BLOOD MD 2015 [facility] OMEPRAZOLE 20MG CAP,EC TAKE ONE CAPSULE BY MOUTH EVERY MORNING 30 MINUTES BEFORE BREAKFAS T FOR HEARTBUR N ORAL ACTIVE 12/18/2025 [id number] 5 ADRIANA WOLF SA 2024 90 [facility] IELD OMEPRAZOLE 20MG CAP,EC TAKE ONE CAPSULE BY MOUTH EVERY MORNING BEFORE EATING FOR STOMACH ORAL 10/06/2024 [id number] DONOVAN VÁSQUEZ 2023 90 [facility] OMEPRAZOLE 20MG CAP,EC TAKE 1 CAPSULE BY MOUTH EVERY MORNING 30 MINUTES BEFORE BREAKFAS T ORAL ACTIVE ADRIANA WOLF SA 2016 [facility] POLYETHYLEN E GLYCOL 3350 PWDR,ORAL MIX 17GM (PER MEASURIN G CAP) BY MOUTH DAILY FOR CONSTIPA TION (MIX IN WATER OR JUICE DIRECTED FOR CONSTIPA TION) ORAL 10/06/2024 [id number] DONOVAN VÁSQUEZ 2023 510 [facility] Immunizations Combined list of available immunizations from the Department of Defense and [facility] Affairs facilities. Immunization Series Date Given Administered By Site Reaction Lot Number CVX Code Drug Motion Picture Projectionist Status Comments Source RSV, RECOMBINANT, PROTEIN SUBUNIT RSVPREF, ADJUVANT RECONSTITUTED , 0.5 ML, PF 2023 FRANCISCO ELIAS ANIL LEFT DELTO ID [id number] 303 complet ed [facility] AT [facility] TDAP 2023 FRANCISCO ELIAS ANIL RIGHT DELTO ID [id number] 115 complet ed [facility] AT [facility] INFLUENZA, HIGH-DOSE, QUADRIVALENT 2022 PREMA KEITH Sourav LEFT DELTO ID [id number] 197 complet ed [facility], [facility] IELD INFLUENZA, UNSPECIFIED FORMULATION 2022 88 complet ed HISTORICA L INFORMATI ON - FROM OTHER REGISTRY, [facility] INFLUENZA VACCINE, QUADRIVALENT, ADJUVANTED 2021 205 complet ed [facility] IELD INFLUENZA, UNSPECIFIED FORMULATION 2021 88 complet ed HISTORICA L INFORMATI ON - FROM PARENT'S RECALL, [facility] INFLUENZA, UNSPECIFIED FORMULATION 2020 88 complet ed [facility] INFLUENZA VACCINE, QUADRIVALENT, ADJUVANTED 2020 205 complet ed [facility] IELD COVID-19 (PFIZER), MRNA, LNP-S, PF, 30 MCG/0.3 ML DOSE 3 2020 208 complet ed [facility] ZOSTER RECOMBINANT 2 2020 187 complet ed [facility] COVID-19 (PFIZER), MRNA, LNP-S, PF, 30 MCG/0.3 ML DOSE 2 2020 208 complet ed PFR; [id number]; 1 [facility] COVID-19 (PFIZER), MRNA, LNP-S, PF, 30 MCG/0.3 ML DOSE 1 2020 208 complet ed PFR; [id number]; 1 [facility] INFLUENZA, UNSPECIFIED FORMULATION 2019 88 complet ed [facility] INFLUENZA, INJECTABLE, QUADRIVALENT, PRESERVATIVE FREE 2019 150 complet ed [facility] IELD INFLUENZA, TRIVALENT, ADJUVANTED 2018 168 complet ed [facility] ZOSTER RECOMBINANT 1 2018 187 complet ed [facility] INFLUENZA, SEASONAL, INJECTABLE 2018 141 complet ed [facility] INFLUENZA, SEASONAL, INJECTABLE 2018 141 complet ed [facility] [place] INFLUENZA, TRIVALENT, ADJUVANTED 2017 168 complet ed [facility] INFLUENZA, INJECTABLE, QUADRIVALENT 2016 158 complet ed [facility] INFLUENZA, SEASONAL, INJECTABLE 2016 141 complet ed Outside Provider [facility] FLU,3 YRS (HISTORICAL) 2015 88 complet ed [facility] [place] [facility] INFLUENZA, UNSPECIFIED FORMULATION 2015 88 complet ed [facility] INFLUENZA, UNSPECIFIED FORMULATION 2014 88 complet ed [facility] PNEUMOCOCCAL CONJUGATE PCV 13 2014 133 complet ed [facility] INFLUENZA, UNSPECIFIED FORMULATION 2013 NAN FRAZIER MD 88 complet ed [facility] INFLUENZA, UNSPECIFIED FORMULATION 2012 88 complet ed [facility] TDAP 2012 115 complet ed Booster for Series, [id number] EXP:06/19 [facility] ZOSTER LIVE 2012 121 complet ed [facility] INFLUENZA, UNSPECIFIED FORMULATION 2011 88 complet ed [facility] TD(ADULT) UNSPECIFIED FORMULATION 2011 139 complet ed [facility] INFLUENZA, UNSPECIFIED FORMULATION 2010 88 complet ed [facility] INFLUENZA, UNSPECIFIED FORMULATION 2009 88 complet ed [facility] INFLUENZA, UNSPECIFIED FORMULATION 2008 88 complet [facility] INFLUENZA VIRUS VACCINE SYR (HISTORICAL) 2007 88 complet [facility] PNEUMOCOCCAL, UNSPECIFIED FORMULATION 2007 109 complet [facility] PNEUMOCOCCAL POLYSACCHARID E PPV23 2007 33 complet ed [facility] INFLUENZA VIRUS VACCINE SYR (HISTORICAL) 2006 88 complet ed [facility] TD(ADULT) UNSPECIFIED FORMULATION 2001 139 complet ed [facility] Results Combined list of recent chemistry, hematology and other laboratory results from Department of Defense and Veterans Affairs, ranging from 15 months to all on record, depending upon the facility. Order Name Results Value Reference Range Date Interpretation Specimen Comments Source MAGNESIUM MAGNESIUM [MASS/VOLUME ] IN SERUM OR PLASMA 1.7 mg/dL 1.5 - 2.6 10/31 Specimen Type: PLASMA No comment entered. Ordering Provider: BRENNAN FRAZIER MD Report Released Date/Time : Oct 12, 2023 10:04 AM Reporting Lab: [facility] [address] [facility] [place] [address] Performin g Lab: [facility] [address] [facility] [place] [address] [facility] MICROALBUMI N/CREATININ E PANEL CREATININE [MASS/VOLUME ] IN URINE 100.4 mg/dL 30.0 - 125.0 10/31 Specimen Type: URINE No comment entered. Ordering Provider: BRENNAN FRAZIER MD Report Released Date/Time : Oct 05, 2023 08:37 AM Reporting Lab: [facility] [address] [facility] [place] [address] Performin g Lab: [facility] [address] [facility] [address] [facility] MICROALBUMI N/CREATININ E PANEL MICROALBUMIN [MASS/VOLUME ] IN URINE 5.6 mg/dL 0.0 - 3.0 10/31 H Specimen Type: URINE No comment entered. Ordering Provider: BRENNAN FRAZIER MD Report Released Date/Time : Oct 05, 2023 08:37 AM Reporting Lab: [facility] [address] [facility] [place] [address] Performin g Lab: [facility] [address] [facility] [place] [address] [facility] MICROALBUMI N/CREATININ E PANEL MICROALBUMIN /CREATININE [MASS RATIO] IN URINE 56 10/31 Specimen Type: URINE No comment entered. Ordering Provider: BRENNAN FRAZIER MD Report Released Date/Time : Oct 05, 2023 08:37 AM Reporting Lab: [facility] [address] [facility] [place] [address] Performin g Lab: [facility] [address] [facility] [place] [address] [facility] IRON GROUP TRANSFERRIN [MASS/VOLUME ] IN SERUM OR PLASMA 221 mg/dL 180 - 330 10/31 Specimen Type: PLASMA No comment entered. Ordering Provider: BRENNAN FRAZIER MD Report Released Date/Time : Oct 12, 2023 10:04 AM Reporting Lab: [facility] [address] [facility] [place] [address] Performin g Lab: [facility] [address] [facility] [place] [address] [facility] IRON GROUP IRON [MASS/VOLUME ] IN SERUM OR PLASMA 60 ug/dL 65 - 175 10/31 L Specimen Type: PLASMA No comment entered. Ordering Provider: BRENNAN FRAZIER MD Report Released Date/Time : Oct 12, 2023 10:04 AM Reporting Lab: [facility] [address] [facility] [place] [address] Performin g Lab: [facility] [address] [facility] [place] [phone] [facility] IRON GROUP IRON/IRON BINDING CAPACITY.TOT AL [MASS RATIO] IN SERUM OR PLASMA 22 10/31 Specimen Type: PLASMA No comment entered. Ordering Provider: BRENNAN FRAZIER MD Report Released Date/Time : Oct 12, 2023 10:04 AM Reporting Lab: [facility] [address] [facility] [place] [address] Performin g Lab: [facility] [address] [facility] [place] [address] [facility] IRON GROUP FERRITIN [MASS/VOLUME ] IN SERUM OR PLASMA 86.17 ng/mL 10.00 - 380.00 10/31 Specimen Type: PLASMA No comment entered. Ordering Provider: BRENNAN FRAZIER MD Report Released Date/Time : Oct 12, 2023 10:04 AM Reporting Lab: [facility] [address] [facility] [place] [phone] Performin g Lab: [facility] [address] [facility] [place] [address] [facility] IRON GROUP IRON BINDING CAPACITY [MASS/VOLUME ] IN SERUM OR PLASMA 276 ug/dL 10/31 Specimen Type: PLASMA No comment entered. Ordering Provider: BRENNAN FRAZIER MD Report Released Date/Time : Oct 12, 2023 10:04 AM Reporting Lab: [facility] [address] [facility] [place] [address] Performin g Lab: [facility] [address] [facility] [place] [address] [facility] URINALYSIS COLOR OF URINE Yellow 10/31 Specimen Type: URINE No comment entered. Ordering Provider: BRENNAN FRAZIER MD Report Released Date/Time : Oct 05, 2023 08:37 AM Reporting Lab: [facility] [address] [facility] [address] Performin g Lab: [facility] [address] [facility] [address] [facility] URINALYSIS SPECIFIC GRAVITY OF URINE 1.015 1.005 - 1.035 10/31 Specimen Type: URINE No comment entered. Ordering Provider: BRENNAN FRAZIER MD Report Released Date/Time : Oct 05, 2023 08:37 AM Reporting Lab: [facility] [address] [facility] [address] Performin g Lab: [facility] [address] [facility] [phone] [place] [address] URINALYSIS UROBILINOGEN [MASS/VOLUME ] IN URINE NEGmg/d L 10/31 Specimen Type: URINE No comment entered. Ordering Provider: BRENNAN FRAZIER MD Report Released Date/Time : Oct 05, 2023 08:37 AM Reporting Lab: [facility] [address] [facility] [address] Performin g Lab: [facility] [address] [facility] [phone] [place] [address] URINALYSIS BILIRUBIN.TO JOSE CRUZ [PRESENCE] IN URINE BY TEST STRIP NEGmg/d L 10/31 Specimen Type: URINE No comment entered. Ordering Provider: BRENNAN FRAZIER MD Report Released Date/Time : Oct 05, 2023 08:37 AM Reporting Lab: [facility] [address] [facility] [address] Performin g Lab: [facility] [address] [facility] [address] [place] [address] URINALYSIS KETONES [MASS/VOLUME ] IN URINE BY TEST STRIP NEGmg/d L 10/31 Specimen Type: URINE No comment entered. Ordering Provider: BRENNAN FRAZIER MD Report Released Date/Time : Oct 05, 2023 08:37 AM Reporting Lab: [facility] [address] [facility] [place] [phone] Performin g Lab: [facility] [address] [facility] [address] [facility] URINALYSIS GLUCOSE [MASS/VOLUME ] IN URINE BY TEST STRIP 500 mg/dL 10/31 Specimen Type: URINE No comment entered. Ordering Provider: BRENNAN FRAZIER MD Report Released Date/Time : Oct 05, 2023 08:37 AM Reporting Lab: [facility] [address] [facility] [place] [address] Performin g Lab: [facility] [address] [facility] [place] [phone] [facility] URINALYSIS PROTEIN [MASS/VOLUME ] IN URINE BY TEST STRIP NEGmg/d L 10/31 Specimen Type: URINE No comment entered. Ordering Provider: BRENNAN FRAZIER MD Report Released Date/Time : Oct 05, 2023 08:37 AM Reporting Lab: [facility] [address] [facility] [place] [address] Performin g Lab: [facility] [address] [facility] [place] [address] [facility] URINALYSIS PH OF URINE 5.0 5.0 - 9.0 10/31 Specimen Type: URINE No comment entered. Ordering Provider: BRENNAN FRAZIER MD Report Released Date/Time : Oct 05, 2023 08:37 AM Reporting Lab: [facility] [address] [facility] [place] [phone] Performin g Lab[facility] [address] [facility] [place] [phone] [facility] URINALYSIS APPEARANCE OF URINE CLEAR 10/31 Specimen Type: URINE No comment entered. Ordering Provider: BRENNAN FRAZIER MD Report Released Date/Time : Oct 05, 2023 08:37 AM Reporting Lab: [facility] [address] [facility] [place] [phone] Performin g Lab[facility] [address] [facility] [place] [phone] [facility] URINALYSIS HEMOGLOBIN [PRESENCE] IN URINE NEG 10/31 Specimen Type: URINE No comment entered. Ordering Provider: BRENNAN FRAZIER MD Report Released Date/Time : Oct 05, 2023 08:37 AM Reporting Lab: [facility] [address] [facility] [place] [phone] Performin g Lab[facility] [address] [facility] [place] [phone] [facility] URINALYSIS NITRITE [PRESENCE] IN URINE BY TEST STRIP NEG 10/31 Specimen Type: URINE No comment entered. Ordering Provider: BRENNAN FRAZIER MD Report Released Date/Time : Oct 05, 2023 08:37 AM Reporting Lab: [facility] [address] [facility] [place] [phone] Performin g Lab[facility] [address] [facility] [place] [phone] [facility] URINALYSIS LEUKOCYTE ESTERASE [PRESENCE] IN URINE BY TEST STRIP NEG 10/31 Specimen Type: URINE No comment entered. Ordering Provider: BRENNAN FRAZIER MD Report Released Date/Time : Oct 05, 2023 08:37 AM Reporting Lab: [facility] [address] [facility] [place] [address] 7 Performin g Lab: [facility] [address] [facility] [place] [address] 7 [facility] BASIC METABOLIC PANEL UREA NITROGEN [MASS/VOLUME ] IN SERUM OR PLASMA 26 mg/dL 6 - 22 10/31 H Specimen Type: PLASMA No comment entered. Ordering Provider: BRENNAN FRAZIER MD Report Released Date/Time : Oct 12, 2023 10:04 AM Reporting Lab: [facility] [address] [facility] [place] [address] 7 Performin g Lab: [facility] [address] [facility] [place] [address] 7 [facility] BASIC METABOLIC PANEL CALCIUM [MASS/VOLUME ] IN SERUM OR PLASMA 9.2 mg/dL 8.5 - 10.5 10/31 Specimen Type: PLASMA No comment entered. Ordering Provider: BRENNAN FRAZIER MD Report Released Date/Time : Oct 12, 2023 10:04 AM Reporting Lab: [facility] [address] [facility] [place] [address] 7 Performin g Lab: [facility] [address] [facility] [place] [address] 7 [facility] BASIC METABOLIC PANEL CREATININE [MASS/VOLUME ] IN SERUM OR PLASMA 1.75 mg/dL 0.60 - 1.30 10/31 H Specimen Type: PLASMA No comment entered. Ordering Provider: BRENNAN FRAZIER MD Report Released Date/Time : Oct 12, 2023 10:04 AM Reporting Lab: [facility] [address] [facility] [place] [address] 7 Performin g Lab: [facility] [address] [facility] [address] 7 [facility] BASIC METABOLIC PANEL GLUCOSE [MASS/VOLUME ] IN SERUM OR PLASMA 125 mg/dL 70 - 100 10/31 H Specimen Type: PLASMA No comment entered. Ordering Provider: BRENNAN FARZIER MD Report Released Date/Time : Oct 12, 2023 10:04 AM Reporting Lab: [facility] [address] [facility] [place] [address] 7 Performin g Lab: [facility] [address] [facility] [address] 7 [facility] BASIC METABOLIC PANEL SODIUM [MOLES/VOLUM E] IN SERUM OR PLASMA 138 mmol/L 134 - 145 10/31 Specimen Type: PLASMA No comment entered. Ordering Provider: BRENNAN FRAZIER MD Report Released Date/Time : Oct 12, 2023 10:04 AM Reporting Lab: [facility] [address] [facility] [place] [address] 7 Performin g Lab: [facility] [address] [facility] [place] [address] 7 [facility] BASIC METABOLIC PANEL POTASSIUM [MOLES/VOLUM E] IN SERUM OR PLASMA 4.2 mmol/L 3.6 - 5.2 10/31 Specimen Type: PLASMA No comment entered. Ordering Provider: BRENNAN FRAZIER MD Report Released Date/Time : Oct 12, 2023 10:04 AM Reporting Lab: [facility] [address] [facility] [place] [address] 7 Performin g Lab: [facility] [address] [facility] [address] 7 [facility] BASIC METABOLIC PANEL CHLORIDE [MOLES/VOLUM E] IN SERUM OR PLASMA 105 mmol/L 100 - 111 10/31 Specimen Type: PLASMA No comment entered. Ordering Provider: BRENNAN FRAZIER MD Report Released Date/Time : Oct 12, 2023 10:04 AM Reporting Lab: [facility] [address] [facility] [address] 7 Performin g Lab: [facility] [address] [facility] [address] 7 [facility] BASIC METABOLIC PANEL CARBON DIOXIDE, TOTAL [MOLES/VOLUM E] IN SERUM OR PLASMA 23 mmol/L 21 - 29 10/31 Specimen Type: PLASMA No comment entered. Ordering Provider: BRENNAN FRAZIER MD Report Released Date/Time : Oct 12, 2023 10:04 AM Reporting Lab: [facility] [address] [facility] [address] 7 Performin g Lab: [facility] [address] [facility] [address] 7 [facility] BASIC METABOLIC PANEL GLOMERULAR FILTRATION RATE/1.73 SQ M.PREDICTED [VOLUME RATE/AREA] IN SERUM, PLASMA OR BLOOD BY CREATININE-B ASED FORMULA (CKD-EPI 2020) 38 10/31 Specimen Type: PLASMA No comment entered. Ordering Provider: BRENNAN FRAZIER MD Report Released Date/Time : Oct 12, 2023 10:04 AM Reporting Lab: [facility] [address] [facility] [address] 7 Performin g Lab: [facility] [address] [facility] [address] 7 [facility] URINALYSIS COLOR OF URINE Yellow 10/05 Specimen Type: URINE No comment entered. Ordering Provider: BRENNAN FRAIZER MD Report Released Date/Time : Oct 05, 2023 08:36 AM Reporting Lab: [facility] [address] [facility] [address] 7 Performin g Lab: [facility] [address] [facility] [address] 7 [facility] URINALYSIS SPECIFIC GRAVITY OF URINE 1.012 1.005 - 1.035 10/05 Specimen Type: URINE No comment entered. Ordering Provider: BRENNAN FRAZIER MD Report Released Date/Time : Oct 05, 2023 08:36 AM Reporting Lab: [facility] [address] [facility] [address] 7 Performin g Lab: [facility] [address] [facility] [address] 7 [facility] URINALYSIS UROBILINOGEN [MASS/VOLUME ] IN URINE NEGmg/d L 10/05 Specimen Type: URINE No comment entered. Ordering Provider: BRENNAN FRAZIER MD Report Released Date/Time : Oct 05, 2023 08:36 AM Reporting Lab: [facility] [address] [facility] [address] 7 Performin g Lab: [facility] [address] [facility] [address] [place] [address] URINALYSIS BILIRUBIN.TO JOSE CRUZ [PRESENCE] IN URINE BY TEST STRIP NEGmg/d L 10/05 Specimen Type: URINE No comment entered. Ordering Provider: BRENNAN FRAZIER MD Report Released Date/Time : Oct 05, 2023 08:36 AM Reporting Lab: [facility] [address] [facility] [address] 7 Performin g Lab: [facility] [address] [facility] [address] 7 [facility] URINALYSIS KETONES [MASS/VOLUME ] IN URINE BY TEST STRIP NEGmg/d L 10/05 Specimen Type: URINE No comment entered. Ordering Provider: BRENNAN FRAZIER MD Report Released Date/Time : Oct 05, 2023 08:36 AM Reporting Lab: [facility] [address] [facility] [address] 7 Performin g Lab: [facility] [address] [facility] [address] 7 [facility] URINALYSIS GLUCOSE [MASS/VOLUME ] IN URINE BY TEST STRIP NEGmg/d L 10/05 Specimen Type: URINE No comment entered. Ordering Provider: BRENNAN FRAZIER MD Report Released Date/Time : Oct 05, 2023 08:36 AM Reporting Lab: [facility] [address] [facility] [place] [address] 7 Performin g Lab: [facility] [address] [facility] [place] [address] 7 [facility] URINALYSIS PROTEIN [MASS/VOLUME ] IN URINE BY TEST STRIP NEGmg/d L 10/05 Specimen Type: URINE No comment entered. Ordering Provider: BRENNAN FRAZIER MD Report Released Date/Time : Oct 05, 2023 08:36 AM Reporting Lab: [facility] [address] [facility] [address] 7 Performin g Lab: [facility] [address] [facility] [address] 7 [facility] URINALYSIS PH OF URINE 5.0 5.0 - 9.0 10/05 Specimen Type: URINE No comment entered. Ordering Provider: BRENNAN FRAZIER MD Report Released Date/Time : Oct 05, 2023 08:36 AM Reporting Lab: [facility] [address] [facility] [place] [address] 7 Performin g Lab: [facility] [address] [facility] [address] 7 [facility] URINALYSIS APPEARANCE OF URINE CLEAR 10/05 Specimen Type: URINE No comment entered. Ordering Provider: BRENNAN FRAZIER MD Report Released Date/Time : Oct 05, 2023 08:36 AM Reporting Lab: [facility] [address] [facility] [place] [address] 7 Performin g Lab: [facility] [address] [facility] [place] [address] 7 [facility] URINALYSIS HEMOGLOBIN [PRESENCE] IN URINE NEG 10/05 Specimen Type: URINE No comment entered. Ordering Provider: BRENNAN FRAZIER MD Report Released Date/Time : Oct 05, 2023 08:36 AM Reporting Lab: [facility] [address] [facility] [place] [address] 7 Performin g Lab: [facility] [address] [facility] [place] [address] 7 [facility] URINALYSIS NITRITE [PRESENCE] IN URINE BY TEST STRIP NEG 10/05 Specimen Type: URINE No comment entered. Ordering Provider: BRENNAN FRAZIER MD Report Released Date/Time : Oct 05, 2023 08:36 AM Reporting Lab: [facility] [address] [facility] [address] 7 Performin g Lab: [facility] [address] [place] [phone] 7 [facility] URINALYSIS LEUKOCYTE ESTERASE [PRESENCE] IN URINE BY TEST STRIP NEG 10/05 Specimen Type: URINE No comment entered. Ordering Provider: BRENNAN FRAZIER MD Report Released Date/Time : Oct 05, 2023 08:36 AM Reporting Lab: [facility] [address] [facility] [address] 7 Performin g Lab: [place] [address] [place] [address] [place] [address] TSH THYROTROPIN [UNITS/VOLUM E] IN SERUM OR PLASMA 1.4520 u[IU]/m L 0.350 - 4.800 10/05 Specimen Type: PLASMA No comment entered. Ordering Provider: BRENNAN FRAZIER MD Report Released Date/Time : Oct 05, 2023 08:36 AM Reporting Lab: [facility] [address] [facility] [address] 7 Performin g Lab: [facility] [address] [place] [address] 7 [facility] CBC LEUKOCYTES [#/VOLUME] IN BLOOD BY AUTOMATED COUNT 10.1 10*3/uL 4.0 - 11.0 10/05 Specimen Type: BLOOD No comment entered. Ordering Provider: BRENNAN FRAZIER MD Report Released Date/Time : Oct 05, 2023 08:36 AM Reporting Lab: [facility] [address] [facility] [address] 7 Performin g Lab: [facility] [address] [place] [phone] 7 [facility] CBC ERYTHROCYTES [#/VOLUME] IN BLOOD BY AUTOMATED COUNT 4.06 10*6/uL 4.4 - 5.9 10/05 L Specimen Type: BLOOD No comment entered. Ordering Provider: BRENNAN FRAZIER MD Report Released Date/Time : Oct 05, 2023 08:36 AM Reporting Lab: [facility] [address] [facility] [place] [address] 7 Performin g Lab: [facility] [address] [place] [phone] 7 [facility] CBC HEMOGLOBIN [MASS/VOLUME ] IN BLOOD 12.3 g/dL 13.4 - 17.5 10/05 L Specimen Type: BLOOD No comment entered. Ordering Provider: BRENNAN FRAZIER MD Report Released Date/Time : Oct 05, 2023 08:36 AM Reporting Lab: [facility] [address] [facility] [place] [address] 7 Performin g Lab: [facility] [address] CBC HEMATOCRIT [VOLUME FRACTION] OF BLOOD BY AUTOMATED COUNT 35.3 40 - 52 10/05 L Specimen Type: BLOOD No comment entered. Ordering Provider: BRENNAN FRAZIER MD Report Released Date/Time : Oct 05, 2023 08:36 AM Reporting Lab: [facility] [address] [facility] [place] [address] 7 Performin g Lab: [facility] [address] [facility] [place] [address] [place] [address] CBC MCV [ENTITIC VOLUME] BY AUTOMATED COUNT 86.9 fL 82 - 98 10/05 Specimen Type: BLOOD No comment entered. Ordering Provider: BRENNAN FRAZIER MD Report Released Date/Time : Oct 05, 2023 08:36 AM Reporting Lab: [facility] [address] [facility] [place] [address] 7 Performin g Lab: [facility] [address] [place] [phone] [place] [address] CBC MCH [ENTITIC MASS] BY AUTOMATED COUNT 30.3 pg 27.0 - 33.0 10/05 Specimen Type: BLOOD No comment entered. Ordering Provider: BRENNAN FRAZIER MD Report Released Date/Time : Oct 05, 2023 08:36 AM Reporting Lab: [facility] [address] [facility] [place] [address] 7 Performin g Lab: [facility] [address] [facility] [place] [address] 7 [facility] CBC MCH [ENTITIC MASS] BY AUTOMATED COUNT 34.9 g/dL 32.0 - 36.0 10/05 Specimen Type: BLOOD No comment entered. Ordering Provider: BRENNAN FRAZIER MD Report Released Date/Time : Oct 05, 2023 08:36 AM Reporting Lab: [facility] [address] [facility] [place] [address] 7 Performin g Lab: [facility] [address] [facility] [address] 7 [facility] CBC PLATELETS [#/VOLUME] IN BLOOD BY AUTOMATED COUNT 255 10*3/uL 140 - 400 10/05 Specimen Type: BLOOD No comment entered. Ordering Provider: BRENNAN FRAZIER MD Report Released Date/Time : Oct 05, 2023 08:36 AM Reporting Lab: [facility] [address] [facility] [place] [address] 7 Performin g Lab: [facility] [address] [facility] [place] [address] 7 [facility] CBC ERYTHROCYTE DISTRIBUTION WIDTH [RATIO] BY AUTOMATED COUNT 14.1 11.5 - 14.5 10/05 Specimen Type: BLOOD No comment entered. Ordering Provider: BRENNAN FRAZIER MD Report Released Date/Time : Oct 05, 2023 08:36 AM Reporting Lab: [facility] [address] [facility] [place] [address] 7 Performin g Lab: [facility] [address] [facility] [place] [address] 7 [facility] CBC PLATELET MEAN VOLUME [ENTITIC VOLUME] IN BLOOD BY AUTOMATED COUNT 7.4 fL 6.6 - 10.6 10/05 Specimen Type: BLOOD No comment entered. Ordering Provider: BRENNAN FRAZIER MD Report Released Date/Time : Oct 05, 2023 08:36 AM Reporting Lab: [facility] [address] [facility] [place] [address] 7 Performin g Lab: [facility] [address] [facility] [address] 7 [facility] BASIC METABOLIC PANEL UREA NITROGEN [MASS/VOLUME ] IN SERUM OR PLASMA 34 mg/dL 6 - 22 10/05 H Specimen Type: PLASMA Comment: *STERLING Morrissey Merged: Oct 05, 2023@09:3 2 by [id number] *Merge to:[id number] /[place] 0117 195 *PHOSPHOR US Merged: Oct 05, 2023@09:3 2 by [id number] *Merge to:[id number] /[place] 0117 195 *FERRITIN (WPB) Merged: Oct 05, 2023@09:3 2 by [id number] *Merge to:[id number] /[place] 0117 195 Ordering Provider: BRENNAN FRAZIER MD Report Released Date/Time : Oct 05, 2023 08:36 AM Reporting Lab: [facility] [address] [facility] [address] 7 Performin g Lab: [place] [address] [facility] [address] 7 [facility] BASIC METABOLIC PANEL CALCIUM [MASS/VOLUME ] IN SERUM OR PLASMA 9.4 mg/dL 8.5 - 10.5 10/05 Specimen Type: PLASMA Comment: *STERLING Morrissey Merged: Oct 05, 2023@09:3 2 by [id number] *Merge to:[id number] /[place] 0117 195 *PHOSPHOR US Merged: Oct 05, 2023@09:3 2 by [id number] *Merge to:[id number] /[place] 0117 195 *FERRITIN (WPB) Merged: Oct 05, 2023@09:3 2 by [id number] *Merge to:[id number] /[place] 0117 195 Ordering Provider: BRENNAN FRAZIER MD Report Released Date/Time : Oct 05, 2023 08:36 AM Reporting Lab: [facility] [address] [facility] [address] 7 Performin g Lab: [facility] [address] [place] [phone] 7 [facility] BASIC METABOLIC PANEL CREATININE [MASS/VOLUME ] IN SERUM OR PLASMA 1.65 mg/dL 0.60 - 1.30 01/17 /2024 H Specimen Type: PLASMA Comment: *STERLING Morrissey Merged: Oct 05, 2023@09:3 2 by [id number] *Merge to:[id number] /[place] 0117 195 *PHOSPHOR US Merged: Oct 05, 2023@09:3 2 by [id number] *Merge to:[id number] /[place] 0117 195 *FERRITIN (WPB) Merged: Oct 05, 2023@09:3 2 by [id number] *Merge to:[id number] /[place] 0117 195 Ordering Provider: BRENNAN FRAZIER MD Report Released Date/Time : Oct 05, 2023 08:36 AM Reporting Lab: [facility] [address] [facility] [address] 7 Performin g Lab: [place] [address] [facility] [address] 7 [facility] BASIC METABOLIC PANEL GLUCOSE [MASS/VOLUME ] IN SERUM OR PLASMA 105 mg/dL 70 - 100 10/05 H Specimen Type: PLASMA Comment: *STERLING Morrissey Merged: Oct 05, 2023@09:3 2 by [id number] *Merge to:[id number] /[place] 0117 195 *PHOSPHOR US Merged: Oct 05, 2023@09:3 2 by [id number] *Merge to:[id number] /[place] 0117 195 *FERRITIN (WPB) Merged: Oct 05, 2023@09:3 2 by [id number] *Merge to:[id number] /[place] 0117 195 Ordering Provider: BRENNAN FRAZIER MD Report Released Date/Time : Oct 05, 2023 08:36 AM Reporting Lab: [facility] [address] [facility] [address] 7 Performin g Lab: [facility] [address] [facility] [address] 7 [facility] BASIC METABOLIC PANEL SODIUM [MOLES/VOLUM E] IN SERUM OR PLASMA 140 mmol/L 134 - 145 10/05 Specimen Type: PLASMA Comment: *STERLING Morrissey Merged: Oct 05, 2023@09:3 2 by [id number] *Merge to:[id number] /[place] 0117 195 *PHOSPHOR US Merged: Oct 05, 2023@09:3 2 by [id number] *Merge to:[id number] /[place] 0117 195 *FERRITIN (WPB) Merged: Oct 05, 2023@09:3 2 by [id number] *Merge to:[id number] /[place] 0117 195 Ordering Provider: BRENNAN FRAZIER MD Report Released Date/Time : Oct 05, 2023 08:36 AM Reporting Lab: [facility] [address] [facility] [address] 7 Performin g Lab: [facility] [address] [facility] [address] 7 [facility] BASIC METABOLIC PANEL POTASSIUM [MOLES/VOLUM E] IN SERUM OR PLASMA 4.9 mmol/L 3.6 - 5.2 10/05 Specimen Type: PLASMA Comment: *JAYCOBU M Merged: Oct 05, 2023@09:3 2 by [id number] *Merge to:[id number] /[place] 0117 195 *PHOSPHOR US Merged: Oct 05, 2023@09:3 2 by [id number] *Merge to:[id number] /[place] 0117 195 *FERRITIN (WPB) Merged: Oct 05, 2023@09:3 2 by [id number] *Merge to:[id number] /[place] 0117 195 Ordering Provider: BRENNAN FRAZIER MD Report Released Date/Time : Oct 05, 2023 08:36 AM Reporting Lab: [facility] [address] [facility] [address] 7 Performin g Lab: [place] [address] [address] [facility] [address] 7 [facility] BASIC METABOLIC PANEL CHLORIDE [MOLES/VOLUM E] IN SERUM OR PLASMA 103 mmol/L 100 - 111 10/05 Specimen Type: PLASMA Comment: *MAGNFRANCU M Merged: Oct 05, 2023@09:3 2 by [id number] *Merge to:[id number] /[place] 0117 195 *PHOSPHOR US Merged: Oct 05, 2023@09:3 2 by [id number] *Merge to:[id number] /[place] 0117 195 *FERRITIN (WPB) Merged: Oct 05, 2023@09:3 2 by [id number] *Merge to:[id number] /[place] 0117 195 Ordering Provider: BRENNAN FRAZIER MD Report Released Date/Time : Oct 05, 2023 08:36 AM Reporting Lab: [place] [address] [facility] [address] 7 Performin g Lab: [facility] [address] [facility] [address]-348 7 [facility] BASIC METABOLIC PANEL CARBON DIOXIDE, TOTAL [MOLES/VOLUM E] IN SERUM OR PLASMA 29 mmol/L 21 - 29 10/05 Specimen Type: PLASMA Comment: *STERLING Morrissey Merged: Oct 05, 2023@09:3 2 by [id number] *Merge to:[id number] /[place] 0117 195 *PHOSPHOR US Merged: Oct 05, 2023@09:3 2 by [id number] *Merge to:[id number] /[place] 0117 195 *FERRITIN (WPB) Merged: Oct 05, 2023@09:3 2 by [id number] *Merge to:[id number] /[place] 0117 195 Ordering Provider: BRENNAN FRAZIER MD Report Released Date/Time : Oct 05, 2023 08:36 AM Reporting Lab: [facility] [address] [facility] [address] 7 Performin g Lab: [place] [address] [address] [facility] [address] 7 [facility] BASIC METABOLIC PANEL GLOMERULAR FILTRATION RATE/1.73 SQ M.PREDICTED [VOLUME RATE/AREA] IN SERUM, PLASMA OR BLOOD BY CREATININE-B ASED FORMULA (CKD-EPI 2020) 41 10/05 Specimen Type: PLASMA Comment: *STERLING Morrissey Merged: Oct 05, 2023@09:3 2 by [id number] *Merge to:[id number] /[place] 0117 195 *PHOSPHOR US Merged: Oct 05, 2023@09:3 2 by [id number] *Merge to:[id number] /[place] 0117 195 *FERRITIN (WPB) Merged: Oct 05, 2023@09:3 2 by [id number] *Merge to:[id number] /[place] 0117 195 Ordering Provider: BRENNAN FRAZIER MD Report Released Date/Time : Oct 05, 2023 08:36 AM Reporting Lab: [facility] [address] [facility] [address] 7 Performin g Lab: [place] [address] [address] [facility] [address] 7 [facility] DIFF COUNT (BLOOD) NEUTROPHILS/ 100 LEUKOCYTES IN BLOOD BY AUTOMATED COUNT 53.6 40 - 77 10/05 Specimen Type: BLOOD No comment entered. Ordering Provider: BRENNAN FRAZIER MD Report Released Date/Time : Oct 05, 2023 08:36 AM Reporting Lab: [facility] [address] [facility] [address]256 7 Performin g Lab: [facility] [address] [facility] [place] [address] [facility] DIFF COUNT (BLOOD) LYMPHOCYTES/ 100 LEUKOCYTES IN BLOOD BY AUTOMATED COUNT 38.7 14 - 45 10/05 Specimen Type: BLOOD No comment entered. Ordering Provider: BRENNAN FRAZIER MD Report Released Date/Time : Oct 05, 2023 08:36 AM Reporting Lab: [facility] [address] [facility] [place] [phone] Performin g Lab: [facility] [address] [facility] [place] [address] [facility] DIFF COUNT (BLOOD) BASOPHILS/10 0 LEUKOCYTES IN BLOOD BY AUTOMATED COUNT 0.2 0 - 2 10/05 Specimen Type: BLOOD No comment entered. Ordering Provider: BRENNAN FRAZIER MD Report Released Date/Time : Oct 05, 2023 08:36 AM Reporting Lab: [facility] [address] [facility] [place] [phone] Performin g Lab: [facility] [address] [facility] [place] [phone] [facility] DIFF COUNT (BLOOD) MONOCYTES/10 0 LEUKOCYTES IN BLOOD BY AUTOMATED COUNT 6.3 2 - 14 10/05 Specimen Type: BLOOD No comment entered. Ordering Provider: BRENNAN FRAZIER MD Report Released Date/Time : Oct 05, 2023 08:36 AM Reporting Lab: [facility] [address] [facility] [place] [phone] Performin g Lab: [facility] [address] [facility] [place] [address] [facility] DIFF COUNT (BLOOD) EOSINOPHILS/ 100 LEUKOCYTES IN BLOOD BY AUTOMATED COUNT 1.2 0 - 7 10/05 Specimen Type: BLOOD No comment entered. Ordering Provider: BRENNAN FARZIER MD Report Released Date/Time : Oct 05, 2023 08:36 AM Reporting Lab: [facility] [address] [facility] [phone] Performin g Lab: [facility] [address] [place] [address] [facility] DIFF COUNT (BLOOD) LYMPHOCYTES [#/VOLUME] IN BLOOD BY AUTOMATED COUNT 3.9 10*3/uL 1.0 - 4.8 10/05 Specimen Type: BLOOD No comment entered. Ordering Provider: BRENNAN FRAZIER MD Report Released Date/Time : Oct 05, 2023 08:36 AM Reporting Lab: [facility] [address] [place] [phone] Performin g Lab: [place] [address] DIFF COUNT (BLOOD) MONOCYTES [#/VOLUME] IN BLOOD BY AUTOMATED COUNT 0.6 10*3/uL 0.2 - 1.0 10/05 Specimen Type: BLOOD No comment entered. Ordering Provider: BRENNAN FRAZIER MD Report Released Date/Time : Oct 05, 2023 08:36 AM Reporting Lab: [facility] [address] 7 Performin g Lab: [facility] [address] [place] [address] [facility] DIFF COUNT (BLOOD) EOSINOPHILS [#/VOLUME] IN BLOOD BY AUTOMATED COUNT 0.1 10*3/uL 0.0 - 0.5 10/05 Specimen Type: BLOOD No comment entered. Ordering Provider: BRENNAN FRAZIER MD Report Released Date/Time : Oct 05, 2023 08:36 AM Reporting Lab: [facility] [address] [facility] [phone] Performin g Lab: [facility] [address] [place] [address] 7 [facility] DIFF COUNT (BLOOD) BASOPHILS [#/VOLUME] IN BLOOD BY AUTOMATED COUNT 0.0 10*3/uL 0 - 0.2 10/05 Specimen Type: BLOOD No comment entered. Ordering Provider: BRENNAN FRAZIER MD Report Released Date/Time : Oct 05, 2023 08:36 AM Reporting Lab: [facility] [address] [address] Performin g Lab: [facility] [address] [address] [facility] DIFF COUNT (BLOOD) NEUTROPHILS [#/VOLUME] IN BLOOD BY AUTOMATED COUNT 5.4 10*3/uL 1.8 - 7.8 10/05 Specimen Type: BLOOD No comment entered. Ordering Provider: BRENNAN FRAZIER MD Report Released Date/Time : Oct 05, 2023 08:36 AM Reporting Lab: [facility] [address] [address] Performin g Lab: [facility] [address] [address] [facility] DIFF COUNT (BLOOD) DIFFERENTIAL CELL COUNT METHOD - BLOOD AUTO 10/05 Specimen Type: BLOOD No comment entered. Ordering Provider: BRENNAN FRAZIER MD Report Released Date/Time : Oct 05, 2023 08:36 AM Reporting Lab: [facility] [address] [phone] Performin g Lab: [facility] [address] [address] [facility] Vital Signs Combined list of inpatient and outpatient Vital Signs from Department of Defense and Veterans Affairs, ranging from 12 months to all on record, depending upon the facility. Vital Sign Value Date Comments Source SYSTOLIC BLOOD PRESSURE 129 01/12/20 24 10:16:00 [facility] DIASTOLIC BLOOD PRESSURE 81 024 10:16:00 [facility] PULSE OXIMETRY 97 01/12/2024 10:16:00 [facility] WEIGHT 217.2 01/12/2024 10:16:00 [facility] BMI 32 kg/m2 01/12/2024 10:16:00 [facility] PAIN 0 01/12/2024 10:16:00 [facility] HEIGHT 69 01/12/2024 10:16:00 [facility] TEMPERATURE 97.4 01/12/2024 10:16:00 [facility] PULSE 67 01/12/2024 10:16:00 [facility] RESPIRATION 18 01/12/2024 10:16:00 [facility] Encounters Combined list of: 1) Encounters from Department of Veterans Affairs facilities going backup to the last 18 months, not all VA inpatient encounters are included; 2) Encounters from the Department of Defense facilities going backup to 280 months. Location Location Details Encounter Type Encounter Number Reason For Visit Attending Provider ADM Date DC Date Status Disposition Source [facility] Outpatient Encounter [id number] 07/06 [facility] OFFICE O/P EST MOD 30-39 MIN [id number] Diagnos is: ICD-10- CM L60.0 Ingrowi EMILY Isaac F 07/06 [facility] LD OFF/OP EST JANUARY X REQ PHY/QHP [id number] Diagnos is: ICD-10- CM Z23 Encount er for immuniz ation RIN KEITH 07/06 [facility] Outpatient Encounter [id number] 07/26 [facility] Outpatient Encounter [id number] CHRISSIE HERNANDEZ 09/28 [facility] EMERGENCY DEPT VISIT LOW MDM [id number] Diagnos is: ICD-10- CM J20.9 Acute bronchi tis, unspeci NAIMA Farah 09/28 [facility] Outpatient Encounter [id number] 10/04 [facility] MTMS BY PHARM PRECIPITATION EQUIPMENT TENDER 15 MIN [id number] Diagnos is: ICD-10- CM 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 SHERRY Boucher 10/06 [facility] OFFICE O/P EST HI 40 MIN [id number] Diagnos is: ICD-10- CM 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 PATRICIA Mesa MD 10/12 [facility] OFFICE O/P EST LOW 20 MIN [id number] Diagnos is: ICD-10- CM 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 EMILY Ron 10/27 [facility] Outpatient Encounter [id number] 10/28 [facility] HEARING AID FITTING/CH ECKING [id number] Diagnos is: ICD-10- CM Z46.1 Encount er for fitting and adjustm ent of hearing aid Sourav FORBES AUD 10/31 [facility] OFF/OP EST JANUARY X REQ PHY/QHP [id number] Diagnos is: ICD-10- CM R13.10 Dysphag ia, unspeci JALEESA Cabrera 10/31 [facility] Outpatient Encounter [id number] 11/03 [facility] ECHO TRANSTHORA CIC [id number] Diagnos is: ICD-10- CM 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 NABILA Rodríguez 11/04 [facility] Outpatient Encounter [id number] 11/06 [facility] [place] OFFICE O/P EST LOW 20 MIN [id number] Diagnos is: ICD-10- CM L60.3 Nail dystrop hy EMILY GOMEZ ES F 01/03 [place] [facility] OFFICE O/P EST LOW 20 MIN [id number] Diagnos is: ICD-10- CM I10 Essenti al (primar y) hyperte nsion PAMELA WOLF 01/11 [place] [facility] Outpatient Encounter [id number] 01/30 [facility] Out[facility] Encounter [id number] 02/06 [facility] Outpatient Encounter [id number] 03/28 [facility] Outpatient Encounter [id number] 04/06 [facility] Outpatient Encounter [id number] 04/12 [facility] Outpatient Encounter [id number] 04/17 [facility] Outpatient Encounter [id number] 06/06 [facility] OFFICE O/P EST MOD 30 MIN [id number]. [id number] Diagnos is: ICD-10- CM L60.0 Ingrowi ng nail PATRICIAEMILY ES F 06/06 [place] [facility] Outpatient Encounter [id number] 1.06/27 [facility] Outpatient Encounter [id number] 07/02 [facility] Outpatient Encounter [id number] 07/09 [facility] Outpatient Encounter [id number] 07/09 [facility] Outpatient Encounter [id number] 07/13 [facility] Out[facility] Encounter [id number] 07/23 [facility] Outpatient Encounter [id number] 09/06 [facility] [place] 6 [place] MORE [id number] Diagnos is: ICD-10- CM L60.0 Ingrowi ng nail PAMELA TRAORE 10/30 [facility] Outpatient Encounter [id number] 11/06 [facility] HEARING AID REPAIR/MOD IFYING [id number] Diagnos is: ICD-10- CM Z46.1 Encount er for fitting and adjustm ent of hearing aid Yuni TALAMANTES AUD 11/13 [facility] Outpatient Encounter [id number] 11/21 [facility] HEARING AID FITTING/CH ECKING [id number] Diagnos is: ICD-10- CM Z46.1 Encount er for fitting and adjustm ent of hearing aid MELBA BURKETT 11/21 [facility] Outpatient Encounter [id number] 12/04 [facility] Outpatient Encounter [id number] 12/17 [facility] [place] OFFICE O/P EST LOW 20 MIN [id number] Diagnos is: ICD-10- CM L60.3 Nail dystrop hy EMILY GOMEZ ES F 12/26 [facility] [id number] Diagnos is: ICD-10- CM 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 Social History Type Response Date Comment Source Tobacco smoking status MTIS VA-TOBACCO NEVER USED 01/12/2024 [place] History of tobacco use VA-TOBACCO FORMER USER 10/12/2023 [facility] History of tobacco use VA-TOBACCO FORMER USER 10/13/2022 [facility] History of tobacco use VA-TOBACCO FORMER USER 07/07/2022 [place] History of tobacco use VA-TOBACCO FORMER USER 10/23/2021 [facility] History of tobacco use VA-TOBACCO FORMER USER 07/07/2021 [place] History of tobacco use MO-TOBACCO QUIT 15 YRS OR MORE 01/14/2020 [facility] History of tobacco use MO-TOBACCO QUIT 15 YRS OR MORE 04/13/2019 [place] History of tobacco use VA-TOBACCO FORMER USER 06/07/2018 [facility] History of tobacco use QUIT TOBACCO USE > 7 YEARS AGO 05/05/2018 Quit in 1960's [place] History of tobacco use NON-TOBACCO USER 01/09/2018 [facility] History of tobacco use NON-TOBACCO USER 07/08/2017 [facility] History of tobacco use QUIT TOBACCO USE > 7 YEARS AGO 04/19/2017 cigarettes quit 40 years ago/ smoked 1 pack daily [facility] [place] [facility] History of tobacco use NON-TOBACCO USER 01/04/2017 [facility] History of tobacco use NON-TOBACCO USER 09/24/2016 [facility] History of tobacco use NON-TOBACCO USER 07/20/2016 [facility] History of tobacco use NON-TOBACCO USER 01/13/2016 [facility] History of tobacco use NON-TOBACCO USER 10/13/2015 [facility] History of tobacco use NON-TOBACCO USER 07/22/2015 [facility] History of tobacco use NON-TOBACCO USER 01/08/2015 [facility] History of tobacco use NON-TOBACCO USER 10/23/2014 [facility] History of tobacco use NON-TOBACCO USER 09/30/2014 [facility] History of tobacco use NON-TOBACCO USER 09/27/2014 [facility] History of tobacco use NON-TOBACCO USER 09/25/2014 [facility] History of tobacco use NON-TOBACCO USER 07/19/2014 [facility] History of tobacco use NON-TOBACCO USER 12/25/2013 [facility] History of tobacco use NON-TOBACCO USER 07/18/2013 [facility] History of tobacco use NON-TOBACCO USER 12/08/2012 [facility] History of tobacco use NON-TOBACCO USER 07/19/2012 [facility] History of tobacco use NON-TOBACCO USER 10/13/2011 [facility] History of tobacco use NON-TOBACCO USER 07/19/2011 [facility] History of tobacco use NON-TOBACCO USER 12/10/2010 [facility] History of tobacco use NON-TOBACCO USER 07/31/2010 [facility] History of tobacco use NON-TOBACCO USER 11/17/2009 [facility] History of tobacco use NON-TOBACCO USER 10/21/2009 [facility] History of tobacco use NON-TOBACCO USER 07/21/2009 [facility] History of tobacco use NON-TOBACCO USER 12/20/2008 [facility] History of tobacco use NON-TOBACCO USER 07/18/2008 [facility] History of tobacco use NON-TOBACCO USER 11/23/2007 [facility] Plan of Care List of future care activities from Department of Veterans Affairs facilities. Additional future care activities may be listed in the Assessment and Plan section. Date/Time Care Activity Care Activity Detail Facili ty 01/16/2025 AMBULATORY - MEDICINE AMBULATORY - MEDICI [facility] Advance Directives List of completed, amended, or rescinded Advance Directives on record at [facility] facilities. An actual copy of the Directive is not included. Date Advance Directive Provider Source 04/26/2017 ADVANCE DIRECTIVE LORENE NAVA
[2025-01-01 18:41] LABS: Anion Gap 14 (12-20); Blood Urea Nitrogen 30 mg/dL (9-16); Carbon Dioxide 24 mmol/L (22-29); Chloride 104 mmol/L (96-108); Estimated Glomerular Filt Rate 36; Potassium 4.6 mmol/L (3.3-5.1); Sodium 137 mmol/L (135-145)
[2025-01-01 18:48] LABS: Appearance Urine Clear; Color Urine Yellow; Glucose Urine UA >=1000 mg/dL (Negative); Leukocyte Esterase Urine Negative (Negative); Nitrite Urine Negative (Negative); PH 5.5 (5.0-9.0); UMIC TRIGGER UA YES; Urine Blood Negative (Negative); Urine Ketones Negative (Negative); Urine Protein Trace mg/dL (Neg-Trace)
[2025-01-01 18:55] LABS: Bacteria Urine None Seen (None Seen); Hyaline Casts Urine 0-2 /LPF (0-2); RBC Urine 0-2 /HPF (0-2); Squamous Epithelial Cell Urine 0-2 /HPF (0-2); WBC Urine 0-5 /HPF (0-5)
== END 2025-01-01 11:06 | disposition home or self-care (01) ==
LOC: HO.HKASLDS 11:05
PROVIDERS: Visit Provider Internal Medicine Nephrology
DX: N28.1 Cyst of kidney, acquired (principal); N18.32 Chronic kidney disease, stage 3b; I12.9 Hypertensive chronic kidney disease with stage 1 through stage 4 chronic kidney disease, or unspecified chronic kidney disease
CPT/HCPCS: 36415; 80051; 81001; 82565; 84520

== ENCOUNTER 2025-01-03 09:22 | Outpatient (AMB) | payer MEDICARE, SELFPAY ==
--- NOTE | 2025-01-03 09:30 | HO.NEPHOV_ITS ---
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 He has diabetes mellitus . His serum creatinine had been around 1.7 which is stable at baseline. He had been started on Jardiance by his physician in [place] in October of 2023 due to worsening renal function. He has no history of malignancy but had a tubular adenoma in the cecum in the past. He is known to have benign prostatic hypertrophy. He does not take any excessive nonsteroidal anti-inflammatories. He has been on PPI for a long time. He takes lisinopril - hydrochlorothiazide for his hypertension along with amlodipine. He is known to have proteinuria. He is an ex-smoker. He has no history of abdominal aortic aneurysm. He is on statins for dyslipidemia. He denies any nausea, vomiting, diarrhea, chest pain, shortness of breath, proximal nocturnal dyspnea or orthopnea. He has no orthostatic symptoms. He denies recurrent sinusitis, epistaxis, photosensitivity, new skin rashes, new bone or back pain. He denies any coronary artery disease, congestive heart failure, CVA, PAD or NENA. He did not have any active complaints at the time of this office visit [facility] Medical History (Updated 04/12/24 @ 13:18 by Chavo Escobar MD) History of torn meniscus of knee Diverticulitis BPH (benign prostatic hyperplasia) Diabetes Pes planus Esophageal reflux Hypertension Hypercholesteremia Surgical History History of carpal tunnel surgery History of back surgery Hx of hernia repair History of knee surgery H/O colonoscopy Family History Mother Diabetes Sister Diabetes Social History Alcohol intake: current Comment: Very little Patient Tobacco Use Status: Former Tobacco user Review of Systems Const All systems reviewed & are unremarkable except as noted in HPI and below Physical Exam Vital Signs: Last Vital Signs Pulse 68 01/03/25 09:31 BP 140/70 H 01/03/25 09:31 Pulse Ox 97 01/03/25 09:31 Oxygen Delivery Method Room Air 01/03/25 09:31 BMI result Body Mass Index 33.8 Const General: comfortable and no acute distress Orientation/consciousness: patient oriented x3 HEENT Head: Yes normocephalic Mouth: Normal oral and palatal mucosa present Eyes EOM: EOMs intact bilaterally Neck Neck: Yes supple Resp Auscultation: clear to auscultation bilaterally Cardio Jugular venous distension: no JVD Rate: regular rate GI Palpation (GI): Soft to palpation Auscultation: normal bowel sounds General: Yes no CVA tenderness Back/Spine/Pelvis Back: no CVA tenderness Skin General skin exam: no rashes or lesions noted Neuro General: patient oriented x3 and moves all extremities Extrem General: Yes no pedal edema Results Reviewed Nephrology Results: Sodium 137 mmol/L (135-145) 01/01/25 Potassium 4.6 mmol/L (3.3-5.1) 01/01/25 Chloride 104 mmol/L (96-108) 01/01/25 Carbon Dioxide 24 mmol/L (22-29) 01/01/25 BUN 30 mg/dL (9-16) H 01/01/25 Creatinine 1.79 mg/dL (0.5-1.4) H 01/01/25 Calcium 9.8 mg/dL (8.4-10.2) 03/01/24 Urine Protein Trace mg/dL (Neg-Trace) 01/01/25 Assessment & Plan Assessment & Plan (1) CKD (chronic kidney disease) stage 3, GFR 30-59 ml/min: Code(s): N18.30 - Chronic kidney disease, stage 3 unspecified Category: Medical Qualifiers: Chronic kidney disease stage 3 subtype: stage 3b (GFR 30-44) Qualified Code(s): N18.32 - Chronic kidney disease, stage 3b (2) Renal cyst: Code(s): N28.1 - Cyst of kidney, acquired Category: Medical (3) Hypertension: Code(s): I10 - Essential (primary) hypertension Category: Medical Qualifiers: Hypertension type: primary hypertension Qualified Code(s): I10 - Essential (primary) hypertension Plan 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 He has history of benign prostatic hypertrophy. His urine output is good. He has no history of vascular disease. He denies any hematuria, sensorineural deafness or any new systemic symptoms. He has been on AVE-inhibitor and diuretics. His blood sugar control is fair. He is on Jardiance which can be increased to 25 mg and his metformin can be discontinued. He does not take any excessive nonsteroidal anti-inflammatories and maintain good hydration. His extensive workup had been done yielding. He can continue losartan 50 mg and can c/w current hydrochlorothiazide. I did not make any other medication changes at this visit . I will do a 24 hour BPM if his BP is fluctuant. I shall do a 24 urine collection for creatinine clearance in the next subsequent visits. All his questions answered. Follow-up appointment given Orders: Orders Blood Urea Nitrogen 6 Months I10 - Essential (primary) hypertension, N18.32 - C hronic kidney disease, stage 3b, N28.1 - Cyst of kidney, acquired Calcium 6 Months I10 - Essential (primary) hypertension, N18.32 - Chronic kidney disease, stage 3b, N28.1 - Cyst of kidney, acquired Protein Creatinine Ratio, Ur 6 Months I10 - Essential (primary) hypertension, N18.32 - Chronic kidney disease, stage 3b, N28.1 - Cyst of kidney, acquired Complete Blood Count Auto Diff 6 Months I10 - Essential (primary) hypertension, N18.32 - Chronic kidney disease, stage 3b, N28.1 - Cyst of kidney, acquired Creatinine 6 Months I10 - Essential (primary) hypertension, N18.32 - Chronic kidney disease, stage 3b, N28.1 - Cyst of kidney, acquired Electrolytes 6 Months I10 - Essential (primary) hypertension, N18.32 - Chronic kidney disease, stage 3b, N28.1 - Cyst of kidney, acquired Coding Level of Care Code Est Pt Level 4 (53624) Diagnoses Stage 3b chronic kidney disease N18.32 Chronic kidney disease stage 3 subtype: stage 3b (GFR 30-44) Renal cyst N28.1 Primary hypertension I10 Hypertension type: primary hypertension
[2025-01-03 09:31] VITALS: BP 140/70; PULSE 68; O2SAT 97; BMI 33.8
--- OUTSIDE RECORDS SUMMARY | 2025-01-03 10:35 | XMS_ITS | Clinical Summary ---
Author Organization [facility], Address [address] [place] [address] [place] [address] Phone Care Team Providers Care Inoculator Name Role Phone Luciano Bowden MD Primary Care Provider [phone] Social History Tobacco Use Types Packs/Day Years [...] patient's age to complete this topic [place] [address] [facility] MCR Care Teams Inoculator Relationship Specialty Start Date End Date Luciano Bowden MD [address] PCP - General Internal Medicine 02/06/24
--- OUTSIDE RECORDS SUMMARY | 2025-01-03 10:35 | XMS_ITS | Encounter Summary ---
Author Organization [facility] Address [address] [place] [address] Phone Care Team Providers Care Stump Shooter Name Role Phone Luciano Bowden MD Primary Care Provider [phone] Encounter Details Date Type Department Care Team (Late st Contact Info) Description 02/06/2024 Documentation Only [facility], [address] [place] [address] [place] [address] [place] [address] Social History Tobacco Use Types [...] on filedocumented in this encounter Care Teams Stump Shooter Relationship Specialty Start Date End Date Luciano Bowden MD [address] PCP - General Internal Medicine 02/06/24 documented as of this encounter
--- OUTSIDE RECORDS SUMMARY | 2025-01-03 10:35 | XMS_ITS | Data Portability ---
Author Organization [facility], [facility] Address [address] [place] [address] Care Team Providers Care Rn Dermatology Name Role Phone [facility] Primary Care Provi anne Assessment No assessment [...] OF THE R ANKLE ,WB [address], [address], [place], [address], 08/07/2024 11:42:40 XR, foot, 2 view - RM.304 2 V OF THE R FOOT [address], [address], [address], [place], [address], 08/07/2024 11:42:40 Medication Orders None recorded . [...] 0bqfl% 2Fg9IQ a4ajBk vP9nXo QUaueC m3YtLR FvZl [address] 2k[address]65 AC0Kqa XyBV6a mKiQtr MwF INTERFACE [facility] [address], [place], [address], 08/06/2024 14:08:28 08/06/20 24 08/06/2024 XR, ankle , 3 or more view http:/ [email or web address] ?Encry pted=s hAaTro YD8dLq bEUv6g %2BXZw aYqtaq 0bqfl% 2Fg9IQ a4ajBk vP9nXo QUaueC m3YtLR FvZl94 [address] 4f2438 AC0Kqa XyBV6a mKiQtr MwF INTERFACE [facility] [address], [place], [address], 08/06/2024 14:08:30 08/06/20 24 08/06/2024 XR, foot, 2 view [email or web address]:/ [email or web address] ?Encry pted=s hAaTro YD8dLq bEUv6g %2BXZw aYqtaq 0bqfl% 2Fg9IQ a4ajBk vP9nXo QUaueC m3YtLR FvZlgJ JJ8mAn HZtai3 3o7399 AC0Kqa XyBV6a lKiQtr MwF INTERFACE [facility] [address], [place], [address], 08/06/2024 14:10:21 08/06/20 24 08/06/2024 XR, foot, 2 view http:/ [email or web address] ?Encry pted=s hAaTro YD8dLq bEUv6g %2BXZw aYqtaq 0bqfl% 2Fg9IQ a4ajBk vP9nXo QUaueC m3YtLR FvZlgJ JJ8mAn HZtai3 1o9705 AC0Kqa XyBV6a lKiQtr MwF INTERFACE [facility] [address] [facility] [address] [facility] [address], [place], [address], 08/06/2024 14:10:23 Result Notes None recorded. Problems Name Problem SNOMED Code Status Onset Date Resolution Date Notes Provider Name and Address Organization Details Recorded Time No complaints 377874838 Active Status : 'I'; Not Available [facility] 4 09:20:13 Problem Notes None recorded. Procedures Surgical History Date Name Laterality Status Provider Name and Address Organization Details Recorded Time 4 Knee Kenalog 40 1cc Injection, Bilateral completed Delio Baum PA-C [address], [place], [address], [facility] 09/18/2024 13:48:36 4 Ankle Lidocaine 1% Injection, L/R completed Rossi Nash PA-C [address], [place], [address], [facility] 08/06/2024 15:14:40 4 Knee Kenalog 40 1cc Injection, Bilateral completed Delio Baum PA-C [address], [place], [address], [facility] 07/09/2024 07:49:19 4 Knee Kenalog 40 1cc Injection, Bilateral completed Delio Baum PA-C [address], [place], [address], [facility] 04/11/2024 07:46:50 4 Knee Kenalog 40 1cc Injection, Bilateral completed Delio Baum PA-C [address], [place], [address], [facility] 01/02/2024 07:33:29 Imaging Results [...] [facility] [address], [place], [address], 08/06/2024 14:08:28 08/06/2024 XR, ankle, 3 or more view completed INTERFACE [facility] [address], [place], [address], 08/06/2024 14:08:30 08/06/2024 XR, foot, 2 view completed INTERFACE [facility] [address], [place], [address], 08/06/2024 14:10:21 08/06/2024 XR, foot, 2 view completed INTER[facility] [address], [place], [address], 08/06/2024 14:10:23 Procedure Notes None recorded. Medical Equipment None Reported. Allergies Allergen ID Allergen Name Allergen Category Reaction Reaction Severity Criticality Documentation Date Start Date Code Code System Note Provider Name and Address Organization Details Recorded Time 61003 aspirin medicatio n Not available Not available Not available 11/21/20232022 1191 RxNorm Not Available [facility] 15:13:23 Medications Name Sig Start Date Stop [...] Updated DateTime 01/02/2024 172.72 cm 33.5 kg/m2 53633.32 g Delvis Cunha [facility] 01/02/2024 09:30:47 Date Recorded Body height Body mass index (BMI) Body weight Provider Name and Address Organization Details Last Updated DateTime 04/11/2024 172.72 cm 26.5 kg/m2 52023.07 g MEGA Colby [facility] 04/11/2024 09:09:29 Date Recorded Body height Provider Name an d Address Organization Details Last Updated DateTime 07/09/2024 172.72 cm GOLDEN DOUGLASS [facility] 07/09/2024 09:30:30 Date Recorded Body height Body mass index (BMI) Body weight Provider Name and Address Organization Details Last Updated DateTime 08/06/2024 175.26 cm 31.6 kg/m2 66140.77 g emilio alford [facility] 08/06/2024 14:09:02 Date Recorded Body height Provider Name an d Address Organization Details Last Updated DateTime 09/05/2024 175.26 cm GOLDEN DOUGLASS [facility] 09/05/2024 14:02:01 Social History None recorded. Functional Status None recorded. Mental Status None recorded. Family History Nothing Reported. Medical History No medical history recorded. Past Encounters Encounter ID Performer Location Encounter Start Date Encounter Closed Date Diagnosis/Indication Diagnosis SNOMED-CT Code Diagnosis ICD10 Code Diagnosis Note [id number] MARYCARMEN [facility] [address] [place] [address] 01/02/2024 09:20:00 01/02/2024 12:33:20 Osteoarthritis of left knee joint 2027231306 29613 M17.12 Osteoarthr itis of right knee joint 4287145479 34444 M17.11 [id number] MARYCARMEN [facility] [address] [place] [address] 04/11/2024 08:49:08 05/02/2024 09:05:00 Osteoarthritis of left knee joint 6529892145 13363 M17.12 Osteoarthr itis of right knee joint 4636983118 21810 M17.11 [id number] [facility] [address] [place] [address] 07/09/2024 09:24:18 07/31/2024 09:06:58 Arthritis of right knee 3548298797 571806 M17.11 Arthritis of left knee 5036230828 439079 M17.12 [id number] MARYCARMEN Desir [address] [place] [address] 08/06/2024 13:30:02 08/28/2024 14:26:48 Pain in right foot 1806425706 40608 M79.404 [id number] MARYCARMEN Grubbs [address] [place] [address] 09/05/2024 13:53:58 09/25/2024 13:39:30 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 9727274259 M17.32 Osteoarthr itis of right knee joint 4595551514 85413 M17.11 Health Concerns Section Related Observation LastModified by Organization Detai ls LastModified Time None Recorded Concern Status LastModified by Organization Details LastModified Time None Recorded Advance Directives Directive None Recorded Payers Encounter Date Sequence Insurance Name Policy Number Policy [place] Covered Member ID [place] Member ID Guarantor Name 01/02/2024 1 [employer] MED[employer] ADVANTAGE PLAN (MEDICARE REPLACEMENT HMO) [id number] 3 Dav [employer] [id number] Dav Raza [employer] 04/11/2024 1 [employer] ADVANTAGE PLAN (MEDICARE REPLACEMENT HMO) [id number] Dav Raza [employer] [id number] Dav Raza [employer] 07/09/2024 1 [employer]VANTAGE PLAN (MEDICARE REPLACEMENT HMO) [id number] Dav [employer] [id number] Dav Raza [employer] 08/06/2024 1 [employer]VANTAGE PLAN (MEDICARE REPLACEMENT HMO) [id number] 3 Dav Raza [employer] [id number] Dav Raza [employer] 09/05/2024 1 [employer]VANTAGE PLAN (MEDICARE REPLACEMENT HMO) [id number] Dav Raza [employer] [id number] Dav Raza [employer] Notes Date Note Type [...] continued conservative treatment. Delio Baum PA-C [address] [facility] [address], [place], [address], [facility] 01/02/2024 12:32:50 04/11/2024 text/html [...] versus continued conservative treatment. Delio Baum PA-C [address] [place] [address] [address], [place], [address], [facility] 04/11/2024 11:13:57 07/09/2024 text/html [...] versus continued conservative treatment. Delio Baum PA-C [address] [place] [address] [address], [place], [address], [facility] 07/09/2024 12:27:49 08/06/2024 text/html [...] right foot over time. 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 X-rays ordered, obtained and reviewed at [facility], a ? ve view weight bearing series [...] 3 months. Sooner if any issues arise._. [facility] speech recognition coordinate measuring equipment operator software was used to create portions of this document. An attempt at proofreading has been made to minimize errors. Please call for corrections. .v Rossi Nash PA-C [address] [place] [address] [address] [facility], [place], [address], [facility] 08/06/2024 15:15:02 09/05/2024 text/html [...] continued conservative treatment. Delio Baum PA-C [address] [facility] [address], [place], [address], [place] [facility] 09/18/2024 13:48:56
--- OUTSIDE RECORDS SUMMARY | 2025-01-03 10:35 | XMS_ITS | Continuity of Care Document ---
Author Name [facility] Organization [facility] Care Team Providers Care Wiping Rag Washer Name Role Phone [facility] Unavailable Unavailable Problems Combined list of problems from Department of Defense and Veterans Affairs facilities. It does not include entries that were removed or entered in error. Problem Status Onset Date Problem Type Date of Resolution Comments Source Aortic Stenosis, Non-Rheumatic (SCT 587080361) Active Condition [facility] Benign hypertension (SNOMED CT 79199972) Active Condition [facility] Benign prostatic hypertrophy Active Condition [facility] Colonoscopy Screening Active Condition Apr 26, 2017 Entered By: ANDERS WOLF Comment: 07/22/2015 - +polyp - repeat 2 yrsAug 2016 Entered By: ANDERS WOLF Comment: 04/21/17 -2 polyps-bx pending [facility] Congenital pes planus Active Condition [facility] Diabetes mellitus (SNOMED CT 57096406) Active Condition [facility] Diabetic peripheral neuropathy Active Condition [facility] Diverticular disease of colon Active Condition [facility] Dysphagia Active Condition [facility] Dysphagia Active Condition Apr 21 Entered By: ANDERS OWLF Comment: 07/20/2016 Dr. King 2016 Entered By: LORENE NAVA Comment: Endoscopy 04/21/2017 [facility] Essential hypertension Active Condition [facility] Gastroesophageal reflux disease Active Condition [facility] Gastroesophageal reflux disease (SNOMED CT 601071935) Active Condition [facility] Glaucoma suspect Active Condition May 05, 2018 Entered By: ANDERS WOLF Comment: Dr. Ho - [facility] Glaucoma suspect (SNOMED CT 863768283) Active Condition [facility] Hearing loss (SNOMED CT 01424893) Active Condition [facility] Hyperlipidemia Active Condition [facility] Hyperlipidemia (SNOMED CT 13485957) Active Condition [facility] Obesity Active Condition [facility] Obesity (SNOMED CT 037675962) Active Condition [facility] Pes planus (SNOMED CT 88460775) Active Condition [facility] Polyp of colon (SNOMED CT 54738026) Active Condition [facility] Primary Care Physician Active Condition Jul 07, 2021 Entered By: ANDERS WOLF [facility] Entered By: ANDERS WOLF Comment: Dr Dilia Frazier - [facility] Sensorineural hearing loss, bilateral Active Condition May 05, 2018 Entered By: ANDERS WOLF Comment: Wears hearing aids both ears [facility] Type 2 diabetes mellitus Active Condition [facility] Bronchitis Inactive Condition 09/24/2016 [facility] Dysphagia, unspecified (ICD-9-CM 787.20) Inactive Condition 10/13/2011 [facility] Diagnosis: ICD-10-CM M14.671 Charcot's joint, right ankle and foot Active Diagnosis [facility] Diagnosis: ICD-10-CM L60.3 Nail dystrophy Active Diagnosis [facility] Diagnosis: ICD-10-CM Z46.1 Encounter for fitting and adjustment of hearing aid Active Diagnosis [facility] Diagnosis: ICD-10-CM L60.0 Ingrowing nail Active Diagnosis [facility] Diagnosis: ICD-10-CM I10 Essential (primary) hypertension Active Diagnosis [facility] Diagnosis: ICD-10-CM 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 Diagnosis [facility] Diagnosis: ICD-10-CM R13.10 Dysphagia, unspecified Active Diagnosis [facility] Diagnosis: ICD-10-CM E11.51 Type 2 diabetes w diabetic peripheral angiopath w/o gangrene Active Diagnosis [facility] Diagnosis: ICD-10-CM J20.9 Acute bronchitis, unspecified Active Diagnosis [facility] Diagnosis: ICD-10-CM Z23 Encounter for immunization Active Diagnosis [facility] Medications Combined list of outpatient medications from [...] DAILY ORAL ACTIVE [facility] AMLODIPINE BESYLATE 10MG TAB TAKE ONE TABLET BY MOUTH DAILY FOR BLOOD PRESSURE ORAL ACTIVE 01/17/2025 [id number] BRENNAN FRAZIER MD [address] [place] [address] AMLODIPINE BESYLATE 10MG TAB TAKE ONE TABLET BY MOUTH DAILY FOR BLOOD PRESSURE ORAL DISCONT INUED 12/21/2023 [id number] 4 BRENNAN FRAZIER MD [address] [place] [address] AMLODIPINE BESYLATE 10MG TAB TAKE ONE TABLET BY MOUTH EVERY DAY ORAL ACTIVE ADRIANA WOLF SA 2016 [facility] [facility] [place] ASPIRIN 81MG TAB,EC TAKE ONE TABLET BY MOUTH DAILY ORAL ACTIVE ADRIANA WOLF SA 2016 [facility] ATORVASTATI N CA 80MG TAB TAKE ONE TABLET BY MOUTH AT BEDTIME FOR CHOLESTE ROL - REPLACES ROSUVAST ATIN ORAL ACTIVE 01/17/2025 [id number] BRENNAN FRAZIER MD [address] [place] [address] ATORVASTATI N CA 80MG TAB TAKE ONE TABLET BY MOUTH AT BEDTIME FOR CHOLESTE ROL - REPLACES ROSUVAST ATIN ORAL DISCONT INUED 12/21/2023 [id number] BRENNAN FRAZIER MD [address] [place] [address] ATORVASTATI N CA 80MG TAB TAKE ONE TABLET BY MOUTH AT BEDTIME ORAL ACTIVE [facility]RIANA WOLF SA 2016 [facility] CHOLECALCIF JOSELYN 25MCG (1,000UNIT) TAB TAKE ONE TABLET BY MOUTH DAILY ORAL ACTIVE DONOVAN VÁSQUEZ Ry 2023 [facility] CYANOCOBALA MIN 1000MCG TAB TAKE ONE TABLET BY MOUTH EVERY OTHER DAY ORAL ACTIVE BRENNAN FRAZIER MD 2019 [facility] CYANOCOBALA MIN TAB TAKE BY MOUTH ONCE DAILY ORAL ACTIVE ADRIANA WOLF SA 2020 [facility] EMPAGLIFLOZ IN 25MG TAB TAKE ONE-HALF TABLET BY MOUTH ONCE DAILY FOR TYPE 2 DIABETES MELLITUS ORAL ACTIVE 04/07/2025 [id number] ADRIANA WOLF SA 2023 [address] [place] EMPAGLIFLOZ IN 25MG TAB TAKE ONE-HALF TABLET BY MOUTH DAILY FOR DIABETES (CONTACT PROVIDER IF GENITAL RASH OCCURS) ORAL 10/12/2024 [id number] BRENNAN FRAZIER MD 2023 45 [facility] FINASTERIDE 5MG TAB TAKE ONE TABLET BY MOUTH DAILY FOR PROSTATE ENLARGEM ENT ORAL 09/19/2024 [id number] 4 BRENNAN FRAZIER MD 2023 90 [facility] FINASTERIDE 5MG TAB TAKE ONE TABLET BY MOUTH EVERY DAY ORAL ACTIVE ADRIANA WOLF SA 2016 [place] [facility] HYDROCHLORO THIAZIDE 12.5MG/CANDELARIO NOPRIL 10MG TAB TAKE 1 TABLET BY MOUTH DAILY FOR HIGH BLOOD PRESSURE FOR BLOOD PRESSURE , KIDNEY PROTECTI ON AND/OR HEART ORAL 10/12/2024 [id number] 4 BRENNAN FRAZIER MD 2023 90 [facility] HYDROCHLORO THIAZIDE 25MG TAB TAKE ONE-HALF TABLET BY MOUTH ONCE DAILY FOR HIGH BLOOD PRESSURE ORAL ACTIVE 09/07/2025 [id number] ADRIANA WOLF SA 2023 45 [place] HYDROCHLORO THIAZIDE 25MG TAB TAKE ONE-HALF TABLET BY MOUTH ONCE DAILY FOR HIGH BLOOD PRESSURE ORAL DISCONT INUED (EDIT) 10/13/2024 [id number] ADRIANA WOLF SA 2023 45 [place] HYDROCHLORO THIAZIDE 25MG TAB TAKE ONE-HALF TABLET BY MOUTH ONCE DAILY FOR HIGH BLOOD PRESSURE ORAL DISCONT INUED 07/16/2025 [id number] ADRIANA WOLF SA 2023 15 [place] HYDROCHLORO THIAZIDE 25MG TAB TAKE ONE-HALF TABLET BY MOUTH ONCE DAILY FOR HIGH BLOOD PRESSURE ORAL DISCONT INUED (EDIT) 07/16/2024 [id number] CHRISSIE YEUNG 2023 [address] [place] KETOCONAZOL E 2% CREAM,TOP APPLY A SMALL AMOUNT TOPICALL Y ONCE DAILY TOPICA L ACTIVE ADRIANA WOLF SA 2017 [facility] LIDOCAINE 5% PATCH APPLY 1 PATCH TOPICALL Y ONCE DAILY FOR NERVE PAIN (LEAVE PATCH ON FOR 12 HOURS, THEN REMOVE PATCH) TOPICA L ACTIVE 06/28/2025 [id number] ADRIANA WOLF SA 2023 [address] [place] LOSARTAN 50MG TAB TAKE ONE TABLET BY MOUTH ONCE DAILY FOR BLOOD PRESSURE /HEART ORAL ACTIVE 09/07/2025 [id number] 5 ADRIANA WOLF SA 2023 90 [place] LOSARTAN 50MG TAB TAKE ONE TABLET BY MOUTH ONCE DAILY FOR BLOOD PRESSURE /HEART ORAL DISCONT INUED (EDIT) 07/16/2025 [id number] 4 ADRIANA WOLF SA 2023 90 [place] LOSARTAN 50MG TAB TAKE ONE TABLET BY MOUTH ONCE DAILY FOR BLOOD PRESSURE /HEART ORAL DISCONT INUED 07/16/2025 [id number] 4 ADRIANA WOLF SA 2023 30 [place] LOSARTAN 50MG TAB TAKE ONE TABLET BY MOUTH ONCE DAILY FOR HIGH BLOOD PRESSURE - THIS REPLACES LISINOPR IL. THROW AWAY LISINOPR IL WHEN YOU START THIS MEDICATI ON ORAL DISCONT INUED (EDIT) 07/16/2024 [id number] 4 CHRISSIE YEUNG 2023 90 [place] MAGNESIUM OXIDE 420MG TAB TAKE TWO TABLETS BY MOUTH TWICE A DAY FOR LOW MAGNESIU M ORAL 10/06/2024 [id number] DONOVAN VÁSQUEZ 2023 400 [facility] MAGNESIUM OXIDE TAB TAKE BY MOUTH TWICE DAILY ORAL ACTIVE [facility]OLF SA [facility] METFORMIN HCL 1000MG TAB TAKE ONE TABLET BY MOUTH TWICE DAILY BEFORE A MEAL ORAL ACTIVE ADRIANA WOLF SA 2016 [facility]arnestine [facility] METFORMIN HCL 1000MG TAB TAKE ONE TABLET BY MOUTH TWICE A DAY BEFORE MEALS ORAL ACTIVE SAFIA BLOOD MD 2015 [facility] OMEPRAZOLE 20MG CAP,EC TAKE ONE CAPSULE BY MOUTH EVERY MORNING 30 MINUTES BEFORE BREAKFAS T FOR HEARTBUR N ORAL ACTIVE 12/18/2025 [id number] 5 ADRIANA WOLF SA 2024 90 [facility] OMEPRAZOLE 20MG CAP,EC TAKE ONE CAPSULE BY MOUTH EVERY MORNING BEFORE EATING FOR STOMACH ORAL 10/06/2024 [id number] DONOVAN VÁSQUEZ 2023 90 [facility] OMEPRAZOLE 20MG CAP,EC TAKE 1 CAPSULE BY MOUTH EVERY MORNING 30 MINUTES BEFORE BREAKFAS T ORAL ACTIVE ADRIANA WOLF SA [facility] POLYETHYLEN E GLYCOL 3350 PWDR,ORAL MIX 17GM (PER MEASURIN G CAP) BY MOUTH DAILY FOR CONSTIPA TION (MIX IN WATER OR JUICE DIRECTED FOR CONSTIPA TION) ORAL 10/06/2024 [id number] DONOVAN VÁSQUEZ 2023 510 [facility] Immunizations Combined list of available immunizations from the Department of Defense and [facility] Affairs facilities. Immunization Series Date Given Administered By Site Reaction Lot Number CVX Code Drug Hand Tire Trimmer Status Comments Source RSV, RECOMBINANT, PROTEIN SUBUNIT RSVPREF, ADJUVANT RECONSTITUTED , 0.5 ML, PF 2023 FRANCISCO ELIAS ANIL LEFT DELTO ID [id number] 303 complet ed [facility] AT [facility] TDAP 2023 FRANCISCO ELIAS ANIL RIGHT DELTO ID [id number] 115 complet ed [facility] AT [facility] INFLUENZA, HIGH-DOSE, QUADRIVALENT 2022 PREMA KEITH Sourav LEFT DELTO ID [id number] 197 complet ed [facility] [place], [facility] INFLUENZA, UNSPECIFIED FORMULATION 2022 88 complet ed HISTORICA L INFORMATI ON - FROM OTHER REGISTRY, [facility] INFLUENZA VACCINE, QUADRIVALENT, ADJUVANTED 2021 205 complet ed [facility] INFLUENZA, UNSPECIFIED FORMULATION 2021 88 complet ed HISTORICA L INFORMATI ON - FROM PARENT'S RECALL, [facility] INFLUENZA, UNSPECIFIED FORMULATION 2020 88 complet ed [facility] INFLUENZA VACCINE, QUADRIVALENT, ADJUVANTED 2020 205 complet ed [facility] COVID-19 (PFIZER), MRNA, LNP-S, PF, 30 MCG/0.3 ML DOSE 3 2020 208 complet ed [facility] ZOSTER RECOMBINANT 2 2020 187 complet ed [facility] COVID-19 (PFIZER), MRNA, LNP-S, PF, 30 MCG/0.3 ML DOSE 2 2020 208 complet ed PFR; [id number]; 1 [facility] COVID-19 (PFIZER), MRNA, LNP-S, PF, 30 MCG/0.3 ML DOSE 1 2020 208 complet ed PFR; [id number]; 1 [facility] INFLUENZA, UNSPECIFIED FORMULATION 2019 88 complet ed [facility] INFLUENZA, INJECTABLE, QUADRIVALENT, PRESERVATIVE FREE 2019 150 complet ed [facility] INFLUENZA, TRIVALENT, ADJUVANTED 2018 168 complet ed [facility] ZOSTER RECOMBINANT 1 2018 187 complet ed [facility] INFLUENZA, SEASONAL, INJECTABLE 2018 141 complet ed [facility] INFLUENZA, SEASONAL, INJECTABLE 2018 141 complet ed [facility] INFLUENZA, TRIVALENT, ADJUVANTED 2017 168 complet ed [facility] INFLUENZA, INJECTABLE, QUADRIVALENT 2016 158 complet ed [facility] INFLUENZA, SEASONAL, INJECTABLE 2016 141 complet ed Outside Provider [facility] FLU,3 YRS (HISTORICAL) [address] [facility] INFLUENZA, UNSPECIFIED FORMULATION 2015 88 complet ed [facility] INFLUENZA, UNSPECIFIED FORMULATION 2014 88 complet ed [facility] PNEUMOCOCCAL CONJUGATE PCV 13 2014 133 complet ed [facility] INFLUENZA, UNSPECIFIED FORMULATION 2013 NAN FRAZIER MD 88 complet ed [facility] INFLUENZA, UNSPECIFIED FORMULATION 2012 88 complet ed [facility] TDAP 2012 115 complet ed Booster for Series, [id number] EXP:06/19 [facility] ZOSTER LIVE 2012 121 complet ed [facility] INFLUENZA, UNSPECIFIED FORMULATION 2011 88 complet ed [facility] TD(ADULT) UNSPECIFIED FORMULATION 2011 139 complet ed [facility] INFLUENZA, UNSPECIFIED FORMULATION 2010 88 complet ed [facility] INFLUENZA, UNSPECIFIED FORMULATION 2009 88 complet ed [facility] INFLUENZA, UNSPECIFIED FORMULATION 2008 88 complet [facility] INFLUENZA VIRUS VACCINE SYR (HISTORICAL) 2007 88 complet [facility] PNEUMOCOCCAL, UNSPECIFIED FORMULATION 2007 109 complet [facility] PNEUMOCOCCAL POLYSACCHARID E PPV23 2007 33 complet ed [facility] INFLUENZA VIRUS VACCINE SYR (HISTORICAL) 2006 88 complet ed [facility] TD(ADULT) UNSPECIFIED FORMULATION 2001 139 complet ed [facility] Results Combined list of recent chemistry, [...] 2023 10:04 AM Reporting Lab: [facility] [address] [facility] [address] Performin g Lab: [facility] [address] [facility] [address]289 7 [facility] MICROALBUMI N/CREATININ E PANEL CREATININE [MASS/VOLUME ] IN URINE 100.4 mg/dL 30.0 - 125.0 10/31 Specimen Type: URINE No comment entered. Ordering Provider: BRENNAN FRAZIER MD Report Released Date/Time : Oct 05, 2023 08:37 AM Reporting Lab: [facility] [address] [facility] [address] 7 Performin g Lab: [facility] [address] [facility] [address] 7 [facility] MICROALBUMI N/CREATININ E PANEL MICROALBUMIN [MASS/VOLUME ] IN URINE 5.6 mg/dL 0.0 - 3.0 10/31 H Specimen Type: URINE No comment entered. Ordering Provider: BRENNAN FRAZIER MD Report Released Date/Time : Oct 05, 2023 08:37 AM Reporting Lab: [facility] [address] [facility] [address] 7 Performin g Lab: [facility] [address] [facility] [address] 7 [facility] MICROALBUMI N/CREATININ E PANEL MICROALBUMIN /CREATININE [MASS RATIO] IN URINE 56 10/31 Specimen Type: URINE No comment entered. Ordering Provider: BRENNAN FRAZIER MD Report Released Date/Time : Oct 05, 2023 08:37 AM Reporting Lab: [facility] [address] [facility] [address] 7 Performin g Lab: [facility] [address] [facility] [address] 7 [facility] IRON GROUP TRANSFERRIN [MASS/VOLUME ] IN SERUM OR PLASMA 221 mg/dL 180 - 330 10/31 Specimen Type: PLASMA No comment entered. Ordering Provider: BRENNAN FRAZIER MD Report Released Date/Time : Oct 12, 2023 10:04 AM Reporting Lab: [facility] [address] [facility] [address] 7 Performin g Lab: [facility] [address] [facility] [address]269 7 [facility] IRON GROUP IRON [MASS/VOLUME ] IN SERUM OR PLASMA 60 ug/dL 65 - 175 10/31 L Specimen Type: PLASMA No comment entered. Ordering Provider: BRENNAN FRAZIER MD Report Released Date/Time : Oct 12, 2023 10:04 AM Reporting Lab: [facility] [address] [facility] [address]293 7 Performin g Lab: [facility] [address] [facility] [address] 7 [facility] IRON GROUP IRON/IRON BINDING CAPACITY.TOT AL [MASS RATIO] IN SERUM OR PLASMA 22 10/31 Specimen Type: PLASMA No comment entered. Ordering Provider: BRENNAN FRAZIER MD Report Released Date/Time : Oct 12, 2023 10:04 AM Reporting Lab: [facility] [address] [facility] [address] 7 Performin g Lab: [facility] [address] [facility] [address] 7 [facility] IRON GROUP FERRITIN [MASS/VOLUME ] IN SERUM OR PLASMA 86.17 ng/mL 10.00 - 380.00 10/31 Specimen Type: PLASMA No comment entered. Ordering Provider: BRENNAN FRAZIER MD Report Released Date/Time : Oct 12, 2023 10:04 AM Reporting Lab: [facility] [address] [facility] [address] 7 Performin g Lab: [facility] [address] [facility] [address] 7 [facility] IRON GROUP IRON BINDING CAPACITY [MASS/VOLUME ] IN SERUM OR PLASMA 276 ug/dL 10/31 Specimen Type: PLASMA No comment entered. Ordering Provider: BRENNAN FRAZIER MD Report Released Date/Time : Oct 12, 2023 10:04 AM Reporting Lab: [facility] [address] [facility] [address] 7 Performin g Lab: [facility] [address] [facility] [address] 7 [facility] URINALYSIS COLOR OF URINE Yellow 10/31 Specimen Type: URINE No comment entered. Ordering Provider: BRENNAN FRAZIER MD Report Released Date/Time : Oct 05, 2023 08:37 AM Reporting Lab: [facility] [address] [facility] [address] 7 Performin g Lab: [facility] [address] [facility] [address] 7 [facility] URINALYSIS SPECIFIC GRAVITY OF URINE 1.015 1.005 - 1.035 10/31 Specimen Type: URINE No comment entered. Ordering Provider: BRENNAN FRAZIER MD Report Released Date/Time : Oct 05, 2023 08:37 AM Reporting Lab: [facility] [address] [facility] [address] 7 Performin g Lab: [facility] [address] [facility] [phone] [place] [address] URINALYSIS UROBILINOGEN [MASS/VOLUME ] IN URINE NEGmg/d L 10/31 Specimen Type: URINE No comment entered. Ordering Provider: BRENNAN FRAZIER MD Report Released Date/Time : Oct 05, 2023 08:37 AM Reporting Lab: [facility] [address] [facility] [address] Performin g Lab: [facility] [address] [facility] [address] [place] [address] URINALYSIS BILIRUBIN.TO JOSE CRUZ [PRESENCE] IN URINE BY TEST STRIP NEGmg/d L 10/31 Specimen Type: URINE No comment entered. Ordering Provider: BRENNAN FRAZIER MD Report Released Date/Time : Oct 05, 2023 08:37 AM Reporting Lab: [facility] [address] [facility] [address] 7 Performin g Lab: [facility] [address] [facility] [address] [place] [address] URINALYSIS KETONES [MASS/VOLUME ] IN URINE BY TEST STRIP NEGmg/d L 10/31 Specimen Type: URINE No comment entered. Ordering Provider: BRENNAN FRAZIER MD Report Released Date/Time : Oct 05, 2023 08:37 AM Reporting Lab: [facility] [address] [facility] [address] 7 Performin g Lab: [facility] [address] [facility] [address] 7 [facility] URINALYSIS GLUCOSE [MASS/VOLUME ] IN URINE BY TEST STRIP 500 mg/dL 10/31 Specimen Type: URINE No comment entered. Ordering Provider: BRENNAN FRAZIER MD Report Released Date/Time : Oct 05, 2023 08:37 AM Reporting Lab: [facility] [address] [facility] [address] 7 Performin g Lab: [facility] [address] [facility] [address] 7 [facility] URINALYSIS PROTEIN [MASS/VOLUME ] IN URINE BY TEST STRIP NEGmg/d L 10/31 Specimen Type: URINE No comment entered. Ordering Provider: BRENNAN FRAZIER MD Report Released Date/Time : Oct 05, 2023 08:37 AM Reporting Lab: [facility] [address] [facility] [address] 7 Performin g Lab: [facility] [address] [facility] [address] 7 [facility] URINALYSIS PH OF URINE 5.0 5.0 - 9.0 10/31 Specimen Type: URINE No comment entered. Ordering Provider: BRENNAN FRAZIER MD Report Released Date/Time : Oct 05, 2023 08:37 AM Reporting Lab: [facility] [address] [facility] [address] 7 Performin g Lab: [facility] [address] [facility] [address] 7 [facility] URINALYSIS APPEARANCE OF URINE CLEAR 10/31 Specimen Type: URINE No comment entered. Ordering Provider: BRENNAN FRAZIER MD Report Released Date/Time : Oct 05, 2023 08:37 AM Reporting Lab: [facility] [address] [facility] [address] 7 Performin g Lab: [facility] [address] [facility] [address]951 7 [facility] URINALYSIS HEMOGLOBIN [PRESENCE] IN URINE NEG 10/31 Specimen Type: URINE No comment entered. Ordering Provider: BRENNAN FRAZIER MD Report Released Date/Time : Oct 05, 2023 08:37 AM Reporting Lab: [facility] [address] [facility] [phone] 7 Performin g Lab: [facility] [address] [facility] [address] 7 [facility] URINALYSIS NITRITE [PRESENCE] IN URINE BY TEST STRIP NEG 10/31 Specimen Type: URINE No comment entered. Ordering Provider: BRENNAN FRAZIER MD Report Released Date/Time : Oct 05, 2023 08:37 AM Reporting Lab: [facility] [address] [facility] [phone] Performin g Lab: [facility] [address] [facility] [phone] [facility] URINALYSIS LEUKOCYTE ESTERASE [PRESENCE] IN URINE BY TEST STRIP NEG 10/31 Specimen Type: URINE No comment entered. Ordering Provider: BRENNAN FRAZIER MD Report Released Date/Time : Oct 05, 2023 08:37 AM Reporting Lab: [facility] [address] [facility] [phone] Performin g Lab: [facility] [address] [facility] [phone] [facility] BASIC METABOLIC PANEL UREA NITROGEN [MASS/VOLUME ] IN SERUM OR PLASMA 26 mg/dL 6 - 22 10/31 H Specimen Type: PLASMA No comment entered. Ordering Provider: BRENNAN FRAZIER MD Report Released Date/Time : Oct 12, 2023 10:04 AM Reporting Lab: [facility] [address] [facility] [phone] Performin g Lab: [facility] [address] [facility] [phone] [facility] BASIC METABOLIC PANEL CALCIUM [MASS/VOLUME ] IN SERUM OR PLASMA 9.2 mg/dL 8.5 - 10.5 10/31 Specimen Type: PLASMA No comment entered. Ordering Provider: BRENNAN FRAZIER MD Report Released Date/Time : Oct 12, 2023 10:04 AM Reporting Lab: [facility] [address] [facility] [phone] Performin g Lab: [facility] [address] [facility] [phone] [facility] BASIC METABOLIC PANEL CREATININE [MASS/VOLUME ] IN SERUM OR PLASMA 1.75 mg/dL 0.60 - 1.30 10/31 H Specimen Type: PLASMA No comment entered. Ordering Provider: BRENNAN FRAZIER MD Report Released Date/Time : Oct 12, 2023 10:04 AM Reporting Lab: [facility] [address] [facility] [address] Performin g Lab: [facility] [address] [facility] [address] 7 [facility] BASIC METABOLIC PANEL GLUCOSE [MASS/VOLUME ] IN SERUM OR PLASMA 125 mg/dL 70 - 100 10/31 H Specimen Type: PLASMA No comment entered. Ordering Provider: BRENNAN FRAZIER MD Report Released Date/Time : Oct 12, 2023 10:04 AM Reporting Lab: [facility] [address] [facility] [address] Performin g Lab: [facility] [address] [facility] [address] 7 [facility] BASIC METABOLIC PANEL SODIUM [MOLES/VOLUM E] IN SERUM OR PLASMA 138 mmol/L 134 - 145 10/31 Specimen Type: PLASMA No comment entered. Ordering Provider: BRENNAN FRAZIER MD Report Released Date/Time : Oct 12, 2023 10:04 AM Reporting Lab: [facility] [address] [facility] [address] 7 Performin g Lab: [facility] [address] [facility] [address] 7 [facility] BASIC METABOLIC PANEL POTASSIUM [MOLES/VOLUM E] IN SERUM OR PLASMA 4.2 mmol/L 3.6 - 5.2 10/31 Specimen Type: PLASMA No comment entered. Ordering Provider: BRENNAN FRAZIER MD Report Released Date/Time : Oct 12, 2023 10:04 AM Reporting Lab: [facility] [address] [facility] [address] 7 Performin g Lab: [facility] [address] [facility] [address] 7 [facility] BASIC METABOLIC PANEL CHLORIDE [MOLES/VOLUM E] IN SERUM OR PLASMA 105 mmol/L 100 - 111 10/31 Specimen Type: PLASMA No comment entered. Ordering Provider: BRENNAN FRAZIER MD Report Released Date/Time : Oct 12, 2023 10:04 AM Reporting Lab: [facility] [address] [facility] [address] 7 Performin g Lab: [facility] [address] [facility] [address] 7 [facility] BASIC METABOLIC PANEL CARBON DIOXIDE, TOTAL [MOLES/VOLUM E] IN SERUM OR PLASMA 23 mmol/L 21 - 29 10/31 Specimen Type: PLASMA No comment entered. Ordering Provider: BRENNAN FRAZIER MD Report Released Date/Time : Oct 12, 2023 10:04 AM Reporting Lab: [facility] [address] [facility] [address] 7 Performin g Lab: [facility] [address] [facility] [address] 7 [facility] BASIC METABOLIC PANEL GLOMERULAR FILTRATION RATE/1.73 SQ M.PREDICTED [VOLUME RATE/AREA] IN SERUM, PLASMA OR BLOOD BY CREATININE-B ASED FORMULA (CKD-EPI 2020) 38 10/31 Specimen Type: PLASMA No comment entered. Ordering Provider: BRENNAN FRAZIER MD Report Released Date/Time : Oct 12, 2023 10:04 AM Reporting Lab: [facility] [address] [facility] [address] 7 Performin g Lab: [facility] [address] [facility] [address] 7 [facility] URINALYSIS COLOR OF URINE Yellow 10/05 Specimen Type: URINE No comment entered. Ordering Provider: BRENNAN FRAZIER MD Report Released Date/Time : Oct 05, 2023 08:36 AM Reporting Lab: [facility] [address] [facility] [address] 7 Performin g Lab: [facility] [address] [facility] [address] 7 [facility] URINALYSIS SPECIFIC GRAVITY OF URINE 1.012 1.005 - 1.035 10/05 Specimen Type: URINE No comment entered. Ordering Provider: BRENNAN FRAZIER MD Report Released Date/Time : Oct 05, 2023 08:36 AM Reporting Lab: [facility] [address] [facility] [address] 7 Performin g Lab: [facility] [address] [facility] [address] 7 [facility] URINALYSIS UROBILINOGEN [MASS/VOLUME ] IN URINE NEGmg/d L 10/05 Specimen Type: URINE No comment entered. Ordering Provider: BRENNAN FRAZIER MD Report Released Date/Time : Oct 05, 2023 08:36 AM Reporting Lab: [facility] [address] [facility] [address] 7 Performin g Lab: [facility] [address] [facility] [address] [place] [address] URINALYSIS BILIRUBIN.TO JOSE CRUZ [PRESENCE] IN URINE BY TEST STRIP NEGmg/d L 10/05 Specimen Type: URINE No comment entered. Ordering Provider: BRENNAN FRAZIER MD Report Released Date/Time : Oct 05, 2023 08:36 AM Reporting Lab: [facility] [address] [facility] [address] 7 Performin g Lab: [facility] [address] [facility] [address] 7 [facility] URINALYSIS KETONES [MASS/VOLUME ] IN URINE BY TEST STRIP NEGmg/d L 10/05 Specimen Type: URINE No comment entered. Ordering Provider: BRENNAN FRAZIER MD Report Released Date/Time : Oct 05, 2023 08:36 AM Reporting Lab: [facility] [address] [facility] [address] 7 Performin g Lab: [facility] [address] [facility] [address] 7 [facility] URINALYSIS GLUCOSE [MASS/VOLUME ] IN URINE BY TEST STRIP NEGmg/d L 10/05 Specimen Type: URINE No comment entered. Ordering Provider: BRENNAN FRAZIER MD Report Released Date/Time : Oct 05, 2023 08:36 AM Reporting Lab: [facility] [address] [facility] [address] 7 Performin g Lab: [facility] [address] [facility] [address] 7 [facility] URINALYSIS PROTEIN [MASS/VOLUME ] IN URINE BY TEST STRIP NEGmg/d L 10/05 Specimen Type: URINE No comment entered. Ordering Provider: BRENNAN FRAZIER MD Report Released Date/Time : Oct 05, 2023 08:36 AM Reporting Lab: [facility] [address] [facility] [address] 7 Performin g Lab: [facility] [address] [facility] [address] 7 [facility] URINALYSIS PH OF URINE 5.0 5.0 - 9.0 10/05 Specimen Type: URINE No comment entered. Ordering Provider: BRENNAN FRAZIER MD Report Released Date/Time : Oct 05, 2023 08:36 AM Reporting Lab: [facility] [address] [facility] [address] 7 Performin g Lab: [facility] [address] [facility] [address] 7 [facility] URINALYSIS APPEARANCE OF URINE CLEAR 10/05 Specimen Type: URINE No comment entered. Ordering Provider: BRENNAN FRAZIER MD Report Released Date/Time : Oct 05, 2023 08:36 AM Reporting Lab: [facility] [address] [facility] [address] 7 Performin g Lab: [facility] [address] [facility] [address] 7 [facility] URINALYSIS HEMOGLOBIN [PRESENCE] IN URINE NEG 10/05 Specimen Type: URINE No comment entered. Ordering Provider: BRENNAN FRAZIER MD Report Released Date/Time : Oct 05, 2023 08:36 AM Reporting Lab: [facility] [address] [facility] [address] 7 Performin g Lab: [facility] [address] [facility] [address] 7 [facility] URINALYSIS NITRITE [PRESENCE] IN URINE BY TEST STRIP NEG 10/05 Specimen Type: URINE No comment entered. Ordering Provider: BRENNAN FRAZIER MD Report Released Date/Time : Oct 05, 2023 08:36 AM Reporting Lab: [facility] [address] [facility] [address] 7 Performin g Lab: [facility] [address] [facility] [address] 7 [facility] URINALYSIS LEUKOCYTE ESTERASE [PRESENCE] IN URINE BY TEST STRIP NEG 10/05 Specimen Type: URINE No comment entered. Ordering Provider: BRENNAN FRAZIER MD Report Released Date/Time : Oct 05, 2023 08:36 AM Reporting Lab: [facility] [address] [facility] [address] 7 Performin g Lab: [place] [address] [place] [phone] 7 [facility] TSH THYROTROPIN [UNITS/VOLUM E] IN SERUM OR PLASMA 1.4520 u[IU]/m L 0.350 - 4.800 10/05 Specimen Type: PLASMA No comment entered. Ordering Provider: BRENNAN FRAZIER MD Report Released Date/Time : Oct 05, 2023 08:36 AM Reporting Lab: [facility] [address] [place] [phone] 7 Performin g Lab: [place] [address] [place] [phone] 7 [facility] BASIC METABOLIC PANEL UREA NITROGEN [MASS/VOLUME ] IN SERUM OR PLASMA 34 mg/dL 6 - 22 10/05 H Specimen Type: PLASMA Comment: *MAGNESIU M Merged: Oct 05, 2023@09:3 2 by [id number] *Merge to:[id number] /[place] 0117 195 *PHOSPHOR US Merged: Oct 05, 2023@09:3 2 by [id number] *Merge to:[id number] /[place] 0117 195 *FERRITIN (WPB) Merged: Oct 05, 2023@09:3 2 by [id number] *Merge to:[id number] /[place] 0117 195 Ordering Provider: BRENNAN FRAZIER MD Report Released Date/Time : Oct 05, 2023 08:36 AM Reporting Lab: [facility] [address] [facility] [address] 7 Performin g Lab: [facility] [address] [facility] [address] 7 [facility] BASIC METABOLIC PANEL CALCIUM [MASS/VOLUME ] IN SERUM OR PLASMA 9.4 mg/dL 8.5 - 10.5 10/05 Specimen Type: PLASMA Comment: *DELMAFRANCU M Merged: Oct 05, 2023@09:3 2 by [id number] *Merge to:[id number] /[place] 0117 195 *PHOSPHOR US Merged: Oct 05, 2023@09:3 2 by [id number] *Merge to:[id number] /[place] 0117 195 *FERRITIN (WPB) Merged: Oct 05, 2023@09:3 2 by [id number] *Merge to:[id number] /[place] 0117 195 Ordering Provider: BRENNAN FRAZIER MD Report Released Date/Time : Oct 05, 2023 08:36 AM Reporting Lab: [facility] [address] [facility] [address] 7 Performin g Lab: [facility] [address] [facility] [address] 7 [facility] BASIC METABOLIC PANEL CREATININE [MASS/VOLUME ] IN SERUM OR PLASMA 1.65 mg/dL 0.60 - 1.30 10/05 H Specimen Type: PLASMA Comment: *JAYCOBU M Merged: Oct 05, 2023@09:3 2 by [id number] *Merge to:[id number] /[place] 0117 195 *PHOSPHOR US Merged: Oct 05, 2023@09:3 2 by [id number] *Merge to:[id number] /[place] 0117 195 *FERRITIN (WPB) Merged: Oct 05, 2023@09:3 2 by [id number] *Merge to:[id number] /[place] 0117 195 Ordering Provider: BRENNAN FRAZIER MD Report Released Date/Time : Oct 05, 2023 08:36 AM Reporting Lab: [facility] [address] [facility] [address] 7 Performin g Lab: [facility] [address] [facility] [address] 7 [facility] BASIC METABOLIC PANEL GLUCOSE [MASS/VOLUME ] IN SERUM OR PLASMA 105 mg/dL 70 - 100 10/05 H Specimen Type: PLASMA Comment: *STERLING Morrissey Merged: Oct 05, 2023@09:3 2 by [id number] *Merge to:[id number] /[place] 0117 195 *PHOSPHOR US Merged: Oct 05, 2023@09:3 2 by [id number] *Merge to:[id number] /[place] 0117 195 *FERRITIN (WPB) Merged: Oct 05, 2023@09:3 2 by [id number] *Merge to:[id number] /[place] 0117 195 Ordering Provider: BRENNAN FRAZIER MD Report Released Date/Time : Oct 05, 2023 08:36 AM Reporting Lab: [facility] [address] [facility] [address] [place] [phone] 7 Performin g Lab: [facility] [address] [place] [address] [facility] BASIC METABOLIC PANEL SODIUM [MOLES/VOLUM E] IN SERUM OR PLASMA 140 mmol/L 134 - 145 10/05 Specimen Type: PLASMA Comment: *STERLING Morrissey Merged: Oct 05, 2023@09:3 2 by [id number] *Merge to:[id number] /[place] 0117 195 *PHOSPHOR US Merged: Oct 05, 2023@09:3 2 by [id number] *Merge to:[id number] /[place] 0117 195 *FERRITIN (WPB) Merged: Oct 05, 2023@09:3 2 by [id number] *Merge to:[id number] /[place] 0117 195 Ordering Provider: BRENNAN FRAZIER MD Report Released Date/Time : Oct 05, 2023 08:36 AM Reporting Lab: [facility] [address] [facility] [address] 7 Performin g Lab: [facility] [address] [place] [address] 7 [facility] BASIC METABOLIC PANEL POTASSIUM [MOLES/VOLUM E] IN SERUM OR PLASMA 4.9 mmol/L 3.6 - 5.2 10/05 Specimen Type: PLASMA Comment: *STERLING Morrissey Merged: Oct 05, 2023@09:3 2 by [id number] *Merge to:[id number] /[place] 0117 195 *PHOSPHOR US Merged: Oct 05, 2023@09:3 2 by [id number] *Merge to:[id number] /[place] 0117 195 *FERRITIN (WPB) Merged: Oct 05, 2023@09:3 2 by [id number] *Merge to:[id number] /[place] 0117 195 Ordering Provider: BRENNAN FRAZIER MD Report Released Date/Time : Oct 05, 2023 08:36 AM Reporting Lab: [facility] [address] [facility] [address] 7 Performin g Lab: [facility] [address] [facility] [address] 7 [facility] BASIC METABOLIC PANEL CHLORIDE [MOLES/VOLUM E] IN SERUM OR PLASMA 103 mmol/L 100 - 111 10/05 Specimen Type: PLASMA Comment: *STERLING Morrissey Merged: Oct 05, 2023@09:3 2 by [id number] *Merge to:[id number] /[place] 0117 195 *PHOSPHOR US Merged: Oct 05, 2023@09:3 2 by [id number] *Merge to:[id number] /[place] 0117 195 *FERRITIN (WPB) Merged: Oct 05, 2023@09:3 2 by [id number] *Merge to:[id number] /[place] 0117 195 Ordering Provider: BRENNAN FRAZIER MD Report Released Date/Time : Oct 05, 2023 08:36 AM Reporting Lab: [facility] [address] [facility] [address] 7 Performin g Lab: [facility] [address] [facility] [address] 7 [facility] BASIC METABOLIC PANEL CARBON DIOXIDE, TOTAL [MOLES/VOLUM E] IN SERUM OR PLASMA 29 mmol/L 21 - 29 10/05 Specimen Type: PLASMA Comment: *STERLING M Merged: Oct 05, 2023@09:3 2 by [id number] *Merge to:[id number] /[place] 0117 195 *PHOSPHOR US Merged: Oct 05, 2023@09:3 2 by [id number] *Merge to:[id number] /[place] 0117 195 *FERRITIN (WPB) Merged: Oct 05, 2023@09:3 2 by [id number] *Merge to:[id number] /[place] 0117 195 Ordering Provider: BRENNAN FRAZIER MD Report Released Date/Time : Oct 05, 2023 08:36 AM Reporting Lab: [facility] [address]7[address] 7 Performin g Lab: [facility] [address] [place] [address] 7 [facility] BASIC METABOLIC PANEL GLOMERULAR FILTRATION RATE/1.73 SQ M.PREDICTED [VOLUME RATE/AREA] IN SERUM, PLASMA OR BLOOD BY CREATININE-B ASED FORMULA (CKD-EPI 2020) 41 10/05 Specimen Type: PLASMA Comment: *STERLING Morrissey Merged: Oct 05, 2023@09:3 2 by [id number] *Merge to:[id number] /[place] 0117 195 *PHOSPHOR US Merged: Oct 05, 2023@09:3 2 by [id number] *Merge to:[id number] /[place] 0117 195 *FERRITIN (WPB) Merged: Oct 05, 2023@09:3 2 by [id number] *Merge to:[id number] /[place] 0117 195 Ordering Provider: BRENNAN FRAZIER MD Report Released Date/Time : Oct 05, 2023 08:36 AM Reporting Lab: [facility] [address] [place] [phone] 7 Performin g Lab: [facility] [address] CBC LEUKOCYTES [#/VOLUME] IN BLOOD BY AUTOMATED COUNT 10.1 10*3/uL 4.0 - 11.0 10/05 Specimen Type: BLOOD No comment entered. Ordering Provider: BRENNAN FRAZIER MD Report Released Date/Time : Oct 05, 2023 08:36 AM Reporting Lab: [facility] [address] [place] [phone] 7 Performin g Lab: [facility] [address] [place] [address] 7 [facility] CBC ERYTHROCYTES [#/VOLUME] IN BLOOD BY AUTOMATED COUNT 4.06 10*6/uL 4.4 - 5.9 10/05 L Specimen Type: BLOOD No comment entered. Ordering Provider: BRENNAN FRAZIER MD Report Released Date/Time : Oct 05, 2023 08:36 AM Reporting Lab: [facility] [address] [facility] [address] 7 Performin g Lab: [facility] [address] [facility] [address] 7 [facility] CBC HEMOGLOBIN [MASS/VOLUME ] IN BLOOD 12.3 g/dL 13.4 - 17.5 10/05 L Specimen Type: BLOOD No comment entered. Ordering Provider: BRENNAN FRAZIER MD Report Released Date/Time : Oct 05, 2023 08:36 AM Reporting Lab: [facility] [address] [facility] [address] 7 Performin g Lab: [facility] [address] [facility] [address] [facility] [address] 7 [facility] CBC HEMATOCRIT [VOLUME FRACTION] OF BLOOD BY AUTOMATED COUNT 35.3 40 - 52 10/05 L Specimen Type: BLOOD No comment entered. Ordering Provider: BRENNAN FRAZIER MD Report Released Date/Time : Oct 05, 2023 08:36 AM Reporting Lab: [facility] [address] [facility] [address] 7 Performin g Lab: [facility] [address] [facility] [address] 7 [facility] CBC MCV [ENTITIC VOLUME] BY AUTOMATED COUNT 86.9 fL 82 - 98 10/05 Specimen Type: BLOOD No comment entered. Ordering Provider: BRENNAN FRAZIER MD Report Released Date/Time : Oct 05, 2023 08:36 AM Reporting Lab: [facility] [address] [facility] [address] 7 Performin g Lab: [facility] [address] [facility] [address] 7 [facility] CBC MCH [ENTITIC MASS] BY AUTOMATED COUNT 30.3 pg 27.0 - 33.0 10/05 Specimen Type: BLOOD No comment entered. Ordering Provider: BRENNAN FRAZIER MD Report Released Date/Time : Oct 05, 2023 08:36 AM Reporting Lab: [facility] [address] [facility] [address] 7 Performin g Lab: [facility] [address] [facility] [address] 7 [facility] CBC MCH [ENTITIC MASS] BY AUTOMATED COUNT 34.9 g/dL 32.0 - 36.0 10/05 Specimen Type: BLOOD No comment entered. Ordering Provider: BRENNAN FRAZIER MD Report Released Date/Time : Oct 05, 2023 08:36 AM Reporting Lab: [facility] [address] [facility] [address] 7 Performin g Lab: [facility] [address] [facility] [address] 7 [facility] CBC PLATELETS [#/VOLUME] IN BLOOD BY AUTOMATED COUNT 255 10*3/uL 140 - 400 10/05 Specimen Type: BLOOD No comment entered. Ordering Provider: BRENNAN FRAZIER MD Report Released Date/Time : Oct 05, 2023 08:36 AM Reporting Lab: [facility] [address] [facility] [address] 7 Performin g Lab: [facility] [address] [place] [phone] 7 [facility] CBC ERYTHROCYTE DISTRIBUTION WIDTH [RATIO] BY AUTOMATED COUNT 14.1 11.5 - 14.5 10/05 Specimen Type: BLOOD No comment entered. Ordering Provider: BRENNAN FRAZIER MD Report Released Date/Time : Oct 05, 2023 08:36 AM Reporting Lab: [facility] [address] [facility] [address] 7 Performin g Lab: [facility] [address] [place] [phone] 7 [facility] CBC PLATELET MEAN VOLUME [ENTITIC VOLUME] IN BLOOD BY AUTOMATED COUNT 7.4 fL 6.6 - 10.6 10/05 Specimen Type: BLOOD No comment entered. Ordering Provider: BRENNAN FRAZIER MD Report Released Date/Time : Oct 05, 2023 08:36 AM Reporting Lab: [facility] [address] [facility] [address] 7 Performin g Lab: [facility] [address] [facility] [address] 7 [facility] DIFF COUNT (BLOOD) NEUTROPHILS/ 100 LEUKOCYTES IN BLOOD BY AUTOMATED COUNT 53.6 40 - 77 10/05 Specimen Type: BLOOD No comment entered. Ordering Provider: BRENNAN FRAZIER MD Report Released Date/Time : Oct 05, 2023 08:36 AM Reporting Lab: [facility] [address] [facility] [address] 7 Performin g Lab: [facility] [address] [facility] [address] 7 [facility] DIFF COUNT (BLOOD) LYMPHOCYTES/ 100 LEUKOCYTES IN BLOOD BY AUTOMATED COUNT 38.7 14 - 45 10/05 Specimen Type: BLOOD No comment entered. Ordering Provider: BRENNAN FRAZIER MD Report Released Date/Time : Oct 05, 2023 08:36 AM Reporting Lab: [facility] [address] [facility] [address] 7 Performin g Lab: [facility] [address] [facility] [address] 7 [facility] DIFF COUNT (BLOOD) BASOPHILS/10 0 LEUKOCYTES IN BLOOD BY AUTOMATED COUNT 0.2 0 - 2 10/05 Specimen Type: BLOOD No comment entered. Ordering Provider: BRENNAN FRAZIER MD Report Released Date/Time : Oct 05, 2023 08:36 AM Reporting Lab: [facility] [address] [facility] [address] 7 Performin g Lab: [facility] [address] [facility] [address] 7 [facility] DIFF COUNT (BLOOD) MONOCYTES/10 0 LEUKOCYTES IN BLOOD BY AUTOMATED COUNT 6.3 2 - 14 10/05 Specimen Type: BLOOD No comment entered. Ordering Provider: BRENNAN FRAZIER MD Report Released Date/Time : Oct 05, 2023 08:36 AM Reporting Lab: [facility] [address] [facility] [address] 7 Performin g Lab: [facility] [address] [facility] [address] 7 [facility] DIFF COUNT (BLOOD) EOSINOPHILS/ 100 LEUKOCYTES IN BLOOD BY AUTOMATED COUNT 1.2 0 - 7 10/05 Specimen Type: BLOOD No comment entered. Ordering Provider: BRENNAN FRAZIER MD Report Released Date/Time : Oct 05, 2023 08:36 AM Reporting Lab: [facility] [address] [facility] [address] 7 Performin g Lab: [facility] [address] [place] [address] 7 [facility] DIFF COUNT (BLOOD) LYMPHOCYTES [#/VOLUME] IN BLOOD BY AUTOMATED COUNT 3.9 10*3/uL 1.0 - 4.8 10/05 Specimen Type: BLOOD No comment entered. Ordering Provider: BRENNAN FRAZIER MD Report Released Date/Time : Oct 05, 2023 08:36 AM Reporting Lab: [facility] [address] [phone] Performin g Lab: [place] [address] DIFF COUNT (BLOOD) MONOCYTES [#/VOLUME] IN BLOOD BY AUTOMATED COUNT 0.6 10*3/uL 0.2 - 1.0 10/05 Specimen Type: BLOOD No comment entered. Ordering Provider: BRENNAN FRAZIER MD Report Released Date/Time : Oct 05, 2023 08:36 AM Reporting Lab: [facility] [address] 7 Performin g Lab: [facility] [address] [place] [address] [facility] DIFF COUNT (BLOOD) EOSINOPHILS [#/VOLUME] IN BLOOD BY AUTOMATED COUNT 0.1 10*3/uL 0.0 - 0.5 10/05 Specimen Type: BLOOD No comment entered. Ordering Provider: BRENNAN FRAZIER MD Report Released Date/Time : Oct 05, 2023 08:36 AM Reporting Lab: [facility] [address] [facility] [phone] Performin g Lab: [facility] [address] [place] [address] [facility] DIFF COUNT (BLOOD) BASOPHILS [#/VOLUME] IN BLOOD BY AUTOMATED COUNT 0.0 10*3/uL 0 - 0.2 10/05 Specimen Type: BLOOD No comment entered. Ordering Provider: BRENNAN FRAZIER MD Report Released Date/Time : Oct 05, 2023 08:36 AM Reporting Lab: [facility] [address] [facility] [phone] Performin g Lab: [facility] [address] [facility] [address] [facility] DIFF COUNT (BLOOD) NEUTROPHILS [#/VOLUME] IN BLOOD BY AUTOMATED COUNT 5.4 10*3/uL 1.8 - 7.8 10/05 Specimen Type: BLOOD No comment entered. Ordering Provider: BRENNAN FRAZIER MD Report Released Date/Time : Oct 05, 2023 08:36 AM Reporting Lab: [facility] [address] [facility] [address] Performin g Lab: [facility] [address] [facility] [address] [facility] DIFF COUNT (BLOOD) DIFFERENTIAL CELL COUNT METHOD - BLOOD AUTO 10/05 Specimen Type: BLOOD No comment entered. Ordering Provider: BRENNAN FRAZIER MD Report Released Date/Time : Oct 05, 2023 08:36 AM Reporting Lab: [facility] [address] [facility] [address] Performin g Lab: [facility] [address] [facility] [address] [facility] Vital Signs Combined list of inpatient [...] DC Date Status Disposition Source [facility] Outpatient Encounter [id number] 07/06 [facility] OFFICE O/P EST MOD 30-39 MIN [id number] Diagnos is: ICD-10- CM L60.0 Ingrowi EMILY Isaac F 07/06 [facility] LD OFF/OP EST JANUARY X REQ PHY/QHP [id number] Diagnos is: ICD-10- CM Z23 Encount er for immuniz ation RIN KEITH 07/06 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 SHERRY Boucher 10/06 [facility] OFFICE O/P EST HI 40 MIN [id number] Diagnos is: ICD-10- CM 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 PATRICIA Mesa MD 10/12 [facility] OFFICE O/P EST LOW 20 MIN [id number] Diagnos is: ICD-10- CM 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 EMILY Ron 10/27 [facility] Outpatient Encounter [id number] 10/28 [facility] HEARING AID FITTING/CH ECKING [id number] Diagnos is: ICD-10- CM Z46.1 Encount er for fitting and adjustm ent of hearing aid Sourav FORBES AUD 10/31 [facility] OFF/OP EST JANUARY X REQ PHY/QHP [id number] Diagnos is: ICD-10- CM R13.10 Dysphag ia, unspeci JALEESA Cabrera 10/31 [facility] Outpatient Encounter [id number] 11/03 [facility] ECHO TRANSTHORA CIC [id number] Diagnos is: ICD-10- CM 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 NABILA Rodríguez 11/04 [facility] Outpatient Encounter [id number] 11/06 [facility] [place] OFFICE O/P EST LOW 20 MIN [id number] Diagnos is: ICD-10- CM L60.3 Nail dystrop hy EMILY GOMEZ ES F 01/03 [place] [facility] OFFICE O/P EST LOW 20 MIN [id number] Diagnos is: ICD-10- CM I10 Essenti al (primar y) hyperte nsion PAMELA WOLF 01/11 [place] [facility] Outpatient Encounter [id number] 01/30 [facility] Outpatient Encounter [id number] 02/06 [facility] Outpatient Encounter [id number] 03/28 [facility] Outpatient Encounter [id number] 04/06 [facility] Outpatient Encounter [id number] 04/12 [facility] Outpatient Encounter [id number] 04/17 [facility] Outpatient Encounter [id number] 06/06 [facility] OFFICE O/P EST MOD 30 MIN [id number] 1BY. [id number] Diagnos is: ICD-10- CM L60.0 Ingrowi ng nail PATRICIAEMILY ES F 06/06 [place] [facility] Outpatient Encounter [id number] 1.06/27 [facility] Outpatient Encounter [id number] 07/02 [facility] Outpatient Encounter [id number] 07/09 [facility] Outpatient Encounter [id number] 07/09 [facility] Outpatient Encounter [id number] 07/13 [facility] Outpatient Encounter [id number] 07/23 [facility] Outpatient Encounter [id number] 09/06 [facility] DEBRIDE NAIL 6 OR MORE [id number] Diagnos is: ICD-10- CM L60.0 Ingrowi ng nail PAMELA TRAORE 10/30 [facility] Outpatient Encounter [id number] 11/06 [facility] HEARING AID REPAIR/MOD IFYING [id number] Diagnos is: ICD-10- CM Z46.1 Encount er for fitting and adjustm ent of hearing aid Yuni TALAMANTES AUD 11/13 [facility] Outpatient Encounter [id number] 11/21 [facility] HEARING AID FITTING/CH ECKING [id number] Diagnos is: ICD-10- CM Z46.1 Encount er for fitting and adjustm ent of hearing aid MELBA BURKETT 11/21 [facility] Outpatient Encounter [id number] 12/04 [facility] Outpatient Encounter [id number] 12/17 [facility] [place] OFFICE O/P EST LOW 20 MIN [id number] Diagnos is: ICD-10- CM L60.3 Nail dystrop hy EMILY GOMEZ ES F 12/26 [facility] M[facility] [id number] Diagnos is: ICD-10- CM 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 Social History Type Response Date Comment Source Tobacco smoking status DCIS VA-TOBACCO NEVER USED 01/12/2024 [facility] History of tobacco use VA-TOBACCO FORMER USER 10/12/2023 [facility] History of tobacco use VA-TOBACCO FORMER USER 10/13/2022 [facility] History of tobacco use RI-TOBACCO QUIT 15 YRS OR MORE 07/07/2022 [facility] History of tobacco use VA-TOBACCO FORMER USER 10/23/2021 [facility] History of tobacco use VA-TOBACCO FORMER USER 07/07/2021 [facility] History of tobacco use VA-TOBACCO QUIT 15 YRS OR MORE 01/14/2020 [facility] History of tobacco use VA-TOBACCO QUIT 15 YRS OR MORE 04/13/2019 [facility] History of tobacco use VA-TOBACCO QUIT 15 YRS OR MORE 06/07/2018 [facility] History of tobacco use QUIT TOBACCO USE > 7 YEARS AGO 05/05/2018 Quit in 1960's [facility] History of tobacco use NON-TOBACCO USER 01/09/2018 [facility] History of tobacco use NON-TOBACCO USER 07/08/2017 [facility] History of tobacco use QUIT TOBACCO USE > 7 YEARS AGO 04/19/2017 cigarettes quit 40 years ago/ smoked 1 pack daily [facility] [place] [facility] History of tobacco use NON-TOBACCO USER 01/04/2017 [facility] History of tobacco use NON-TOBACCO USER 09/24/2016 [facility] History of tobacco use NON-TOBACCO USER 07/20/2016 [facility] History of tobacco use NON-TOBACCO USER 01/13/2016 [facility] History of tobacco use NON-TOBACCO USER 10/13/2015 [facility] History of tobacco use NON-TOBACCO USER 07/22/2015 [facility] History of tobacco use NON-TOBACCO USER 01/08/2015 [facility] History of tobacco use NON-TOBACCO USER 10/23/2014 [facility] History of tobacco use NON-TOBACCO USER 09/30/2014 [facility] History of tobacco use NON-TOBACCO USER 09/27/2014 [facility] History of tobacco use NON-TOBACCO USER 09/25/2014 [facility] History of tobacco use NON-TOBACCO USER 07/19/2014 [facility] History of tobacco use NON-TOBACCO USER 12/25/2013 [facility] History of tobacco use NON-TOBACCO USER 07/18/2013 [facility] History of tobacco use NON-TOBACCO USER 12/08/2012 [facility] History of tobacco use NON-TOBACCO USER 07/19/2012 [facility] History of tobacco use NON-TOBACCO USER 10/13/2011 [facility] History of tobacco use NON-TOBACCO USER 07/19/2011 [facility] History of tobacco use NON-TOBACCO USER 12/10/2010 [facility] History of tobacco use NON-TOBACCO USER 07/31/2010 [facility] History of tobacco use NON-TOBACCO USER 11/17/2009 [facility] History of tobacco use NON-TOBACCO USER 10/21/2009 [facility] History of tobacco use NON-TOBACCO USER 07/21/2009 [facility] History of tobacco use NON-TOBACCO USER 12/20/2008 [facility] History of tobacco use NON-TOBACCO USER 07/18/2008 [facility] History of tobacco use NON-TOBACCO USER 11/23/2007 [facility] Plan of Care List of future care activities from [facility] facilities. Additional future care activities may be listed in the Assessment and Plan section. Date/Time Care Activity Care Activity Detail Facili ty 01/16/2025 AMBULATORY - MEDICINE AMBULATORY - MEDICI [facility] [place] [facility] Advance Directives List of completed, amended, or rescinded Advance Directives on record at Department [facility] facilities. An actual copy of the Directive is not included. Date Advance Directive Provider Source 04/26/2017 ADVANCE DIRECTIVE LORENE NAVA
== END 2025-01-03 10:02 | disposition home or self-care (01) ==
LOC: HO.HKAS 09:23
PROVIDERS: PCP Internal Medicine; Visit Provider Internal Medicine Nephrology
DX: N18.32 Chronic kidney disease, stage 3b (principal); N28.1 Cyst of kidney, acquired; I10 Essential (primary) hypertension
CPT/HCPCS: 99214

== ENCOUNTER → 2025-01-03 09:22 | Outpatient (BNVA) | payer MEDICARE, SELFPAY | PROVIDERS: PCP Internal Medicine; Visit Provider Internal Medicine Nephrology | DX: E11.22 Type 2 diabetes mellitus with diabetic chronic kidney disease (principal); I12.9 Hypertensive chronic kidney disease with stage 1 through stage 4 chronic kidney disease, or unspecified chronic kidney disease; N28.1 Cyst of kidney, acquired; N18.32 Chronic kidney disease, stage 3b | CPT/HCPCS: 99212 ==

== ENCOUNTER 2025-06-14 09:46 | Outpatient (REF) | payer MEDICARE, SELFPAY ==
--- OUTSIDE RECORDS SUMMARY | 2025-06-14 10:49 | XMS_ITS | Encounter Summary ---
Author Organization [facility] Address [address] [place] [address] Phone Care Team Providers Care Memorial Adviser Name Role Phone Luciano Bowden MD Primary Care Provider [phone] Encounter Details Date Type Department Care Team (Late st Contact Info) Description 02/06/2024 Documentation Only [facility] [place], [address] [place] [address] [place], [place] [address] [place] [address] Social History Tobacco Use Types [...] on filedocumented in this encounter Care Teams Memorial Adviser Relationship Specialty Start Date End Date Luciano Bowden MD [address] PCP - General Internal Medicine 02/06/24 documented as of this encounter
--- OUTSIDE RECORDS SUMMARY | 2025-06-14 10:49 | XMS_ITS | Clinical Summary ---
Author Organization [facility] [place], Address [address] [place] [address] [place] [address] Phone Care Team Providers Care Supervising Appraiser Name Role Phone Luciano Bowden MD Primary Care Provider [phone] Social History Tobacco Use Types Packs/Day Years [...] Diabetes: Visual Foot Exam 02/16/2024 Influenza Vaccine (#1) 2025 , 07/07/2022, 06/19/2022, Additional history exists Pneumococcal Vaccine: 50+ Years Completed 01/08/2015, 11/23/2007, 11/23/2007 Hepatitis B Vaccine Aged Out No longe r eligible based on patient's age to complete this topic [place] [address] [facility] MCR Care Teams Supervising Appraiser Relationship Specialty Start Date End Date Luciano Bowden MD [address] PCP - General Internal Medicine 02/06/24
[2025-06-14 13:12] LABS: MANUAL DIFF FLAG NO
[2025-06-14 13:32] LABS: Hematocrit 40.3 % (42.0-52.0); Hemoglobin 13.1 g/dl (14.0-18.0); Imm Gran Abs Auto 0.01 X10*3/uL (0.00-0.03); Imm Gran Pct Auto 0.1 % (0.0-0.4); Lymphocytes Absolute Auto 2.3 X10*3/uL (1.2-4.9); Mean Corpuscular HGB Conc 32.5 g/dl (31.0-36.0); Mean Corpuscular Hemoglobin 28.8 pg (27.0-33.0); Mean Corpuscular Volume 88.6 fL (80.0-98.0); NRBC Abs Auto 0.000 X10*3/uL (0.0-0.012); NRBC Pct Auto 0.0 /100WBC (0.0-0.2); Platelet Count 184 X10*3/uL (160-400); Red Blood Count 4.55 X10*6/uL (4.60-5.80); White Blood Count 7.1 X10*3/uL (4.8-10.8)
[2025-06-14 13:38] LABS: Protein/Creatinine Ratio, Ur 0.28 (<0.2); Total Protein Urine Random 16 mg/dL (<12)
[2025-06-14 14:10] LABS: Anion Gap 11 (12-20); Blood Urea Nitrogen 27 mg/dL (9-16); Calcium 9.4 mg/dL (8.4-10.2); Carbon Dioxide 27 mmol/L (22-29); Chloride 107 mmol/L (96-108); Estimated Glomerular Filt Rate 39; Potassium 4.1 mmol/L (3.3-5.1); Sodium 141 mmol/L (135-145)
== END 2025-06-14 09:47 | disposition home or self-care (01) ==
LOC: HO.HKASLDS 09:46
PROVIDERS: Visit Provider Internal Medicine Nephrology
DX: I12.9 Hypertensive chronic kidney disease with stage 1 through stage 4 chronic kidney disease, or unspecified chronic kidney disease (principal); N18.32 Chronic kidney disease, stage 3b; N28.1 Cyst of kidney, acquired
CPT/HCPCS: 36415; 80051; 82310; 82565; 82570; 84156; 84520; 85025

== ENCOUNTER 2025-06-20 13:28 | Outpatient (AMB) | payer MEDICARE, SELFPAY ==
--- NOTE | 2025-06-20 13:37 | HO.NEPHOV_ITS ---
Vital Signs 06/20/25 13:39 Height 5 ft 9 in Weight 222 lb 8 oz BMI 32.9 BP 130/64 Blood Pressure Location Lt brachial Position Sitting Pulse 67 Pulse Source Pulse Oximeter Pulse Oximetry (%) 97 Oxygen Delivery Method Room Air Intake Visit Reasons: 6 Months-Conf w/ Patient Financial Services Specialist Required: No Accompanied by: Self / Same As Patient Allergies No Known Allergies Allergy (Verified 06/20/25 13:39) HPI Comments Details: Dav was seen in follow-up of his chronic kidney disease and hypertension. He has diabetes mellitus . His serum creatinine had been around 1.7 . He had been started on Jardiance by his physician in [place] in October of 2023 due to worsening renal function. He has no history of malignancy but had a tubular adenoma in the cecum in the past. He is known to have benign prostatic hypertrophy. He does not take any excessive nonsteroidal anti-inflammatories. He has been on PPI for a long time. He takes lisinopril - hydrochlorothiazide for his hypertension along with amlodipine. He is known to have proteinuria. He is an ex-smoker. He has no history of abdominal aortic aneurysm. He is on statins for dyslipidemia. He denies any nausea, vomiting, diarrhea, chest pain, shortness of breath, proximal nocturnal dyspnea or orthopnea. He has no orthostatic symptoms. He denies recurrent sinusitis, epistaxis, photosensitivity, new skin rashes, new bone or back pain. He denies any coronary artery disease, congestive heart failure, CVA, PAD or NENA. He did not have any active complaints at the time of this office visit [facility] Medical History (Updated 04/12/24 @ 13:18 by Chavo Escobar MD) History of torn meniscus of knee Diverticulitis BPH (benign prostatic hyperplasia) Diabetes Pes planus Esophageal reflux Hypertension Hypercholesteremia Surgical History History of carpal tunnel surgery History of back surgery Hx of hernia repair History of knee surgery H/O colonoscopy Family History Mother Diabetes Sister Diabetes Social History Alcohol intake: current Comment: Very little Patient Tobacco Use Status: Former Tobacco user Review of Systems Const All systems reviewed & are unremarkable except as noted in HPI and below Physical Exam Vital Signs: Last Vital Signs Pulse 67 06/20/25 13:39 BP 130/64 06/20/25 13:39 Pulse Ox 97 06/20/25 13:39 Oxygen Delivery Method Room Air 06/20/25 13:39 BMI result Body Mass Index 32.9 Const General: comfortable and no acute distress Orientation/consciousness: patient oriented x3 HEENT Head: Yes normocephalic Mouth: Normal oral and palatal mucosa present Eyes EOM: EOMs intact bilaterally Neck Neck: Yes supple Resp Auscultation: clear to auscultation bilaterally Cardio Jugular venous distension: no JVD Rate: regular rate GI Palpation (GI): Soft to palpation Auscultation: normal bowel sounds General: Yes no CVA tenderness Back/Spine/Pelvis Back: no CVA tenderness Skin General skin exam: no rashes or lesions noted Neuro General: patient oriented x3 and moves all extremities Extrem General: Yes no pedal edema Results Reviewed Nephrology Results: Hgb, (14.0-18.0) 13.1 g/dl L 06/14/25 WBC, (4.8-10.8) 7.1 X10*3/uL 06/14/25 Plt Count, (160-400) 184 X10*3/uL 06/14/25 Sodium, (135-145) 141 mmol/L 06/14/25 Potassium, (3.3-5.1) 4.1 mmol/L 06/14/25 Chloride, (96-108) 107 mmol/L 06/14/25 Carbon Dioxide, (22-29) 27 mmol/L 06/14/25 BUN, (9-16) 27 mg/dL H 06/14/25 Creatinine, (0.5-1.4) 1.69 mg/dL H 06/14/25 Calcium, (8.4-10.2) 9.4 mg/dL 06/14/25 Urine Protein, (Neg-Trace) Trace mg/dL 01/01/25 Urine Creatinine 57.55 mg/dL 06/14/25 Protein/Creatinin Ratio, (<0.2) 0.28 H 06/14/25 Renal US 03/15/24 Assessment & Plan Assessment & Plan (1) CKD stage 3b, GFR 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 He has history of benign prostatic hypertrophy. His urine output is good. He has no history of vascular disease. He denies any hematuria, sensorineural deafness or any new systemic symptoms. He has been on AVE-inhibitor and diuretics. His blood sugar control is fair. He is on Jardiance 25 mg and his metformin has been discontinued. He should be on GLP1 agonist. He does not take any excessive nonsteroidal anti-inflammatories and maintain good hydration. His extensive workup had been done yielding. He can continue losartan 50 mg and can c/w current hydrochlorothiazide. I did not make any other medication changes at this visit. I shall do a 24 urine collection for creatinine clearance in the next subsequent visits. (Sister had ESRD). All his questions answered. Follow- up appointment given Orders: Orders Protein Creatinine Ratio, Ur 6 Months I10 - Essential (primary) hypertension, N18.32 - Chronic kidney disease, stage 3b, N28.1 - Cyst of kidney, acquired Creatinine 6 Months I10 - Essential (primary) hypertension, N18.32 - Chronic kidney disease, stage 3b, N28.1 - Cyst of kidney, acquired Blood Urea Nitrogen 6 Months I10 - Essential (primary) hypertension, N18.32 - Chronic kidney disease, stage 3b, N28.1 - Cyst of kidney, acquired Electrolytes 6 Months I10 - Essential (primary) hypertension, N18.32 - Chronic kidney disease, stage 3b, N28.1 - Cyst of kidney, acquired Coding Level of Care Code Est Pt Level 4 (37876) Diagnoses CKD stage 3b, GFR 30-44 ml/min N18.32 Primary hypertension I10 Hypertension type: primary hypertension Renal cyst N28.1
[2025-06-20 13:39] VITALS: BP 130/64; PULSE 67; O2SAT 97; BMI 32.9
--- OUTSIDE RECORDS SUMMARY | 2025-06-20 14:58 | XMS_ITS | Encounter Summary ---
Author Organization [facility] Address [address] [place] [address] Phone Care Team Providers Care Fiberglasser Name Role Phone Luciano Bowden MD Primary Care Provider [phone] Encounter Details Date Type Department Care Team (Late st Contact Info) Description 02/06/2024 Documentation Only [facility] [place], [address] [place] [address] [place], [place] [address] [place] [address] Social History Tobacco Use Types [...] on filedocumented in this encounter Care Teams Fiberglasser Relationship Specialty Start Date End Date Luciano Bowden MD [address] PCP - General Internal Medicine 02/06/24 documented as of this encounter
--- OUTSIDE RECORDS SUMMARY | 2025-06-20 14:58 | XMS_ITS | Data Portability ---
Author Organization [facility] Gaurav Rangel Mabrittani [facility], [facility] Address [address] [place] [address] Care Team Providers Care Filter Press Pumper Name Role Phone [facility] Primary Care Provi anne JACE SIMMONS Primary Care Provider Assessment Encounter Date Assessment Date Assessment LastModified by Organization Details LastModified Time 01/24/2025 01/24/2025 ICD-10: Right severe pes planovalgus deformity, stage III posterior tibial tendon dysfunction, equinus contracture CHIEF COMPLAINT: Right foot and ankle pain HISTORY OF PRESENT ILLNESS: Cooper is a very pleasant 84-year-old diabetic gentleman seen today as a patient in follow-up with regard to long-standing severe painful right flatfoot deformity. I last saw him in March 2020, almost 5 years ago. He has pain over his medial ankle and hindfoot. [facility] and an [facility] brace. He recently obtained an [place] brace. He finds the brace helpful. His pain level is 4/10. He is here today for MRI review and to discuss treatment options. He had an MRI in late November in [place]. He spends January through June in [place] and the remainder of the year in [place]. He sees Clint Baum for knee injections. He is here today to discuss treatment options for his painful right flatfoot. His pain level is 4/10. He is not currently of a surgical mindset. He finds orthotics mildly helpful. 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 He denies any ulceration. He had a previous cortisone injection was not beneficial. Past family, medical, social history and review of systems has been reviewed, updated and signed by me and is located in the patient s chart. His last hemoglobin A1C level was 7.1. He is on metformin. PHYSICAL EXAM: General: 5'9 , 220 lbs, healthy appearing, in no acute distress Psych: alert and oriented x3, normal mood Skin: intact without ulceration or lesion, normal turgor Lungs: respirations unlabored Cardiac: heart rate regular, normal peripheral pulses Musculoskeletal: On standing exam, he has severe right pes planovalgus deformity with forefoot abduction and severe hindfoot valgus. His gait is mildly antalgic on the right. He has pes planus on the left side as well. On seated exam, his deformity is not fully passively correctable. He is tender over the talar head, posterior tibial tendon and medial hindfoot as well as over the sinus tarsi and subfibular region. His ankle is stable to valgus stress. He has an equinus contracture due to a tight Achilles tendon. He has contracted peroneal tendons. He has a bunion deformity without any tenderness over the medial eminence. He is distally neurovascularly intact. X-RAYS: Five standing views of the right foot and ankle were ordered, obtained and reviewed by me today at [facility], demonstrating severe pes planovalgus deformity with lateral peritalar subluxation and AP talus-first metatarsal angle of 35 , 35 degree sag in Meary's line on lateral view. His ankle is well aligned. He has a moderate to severe hallux valgus deformity. There has been interval progression of his pes planovalgus deformity and hindfoot arthritis. MRI: His right ankle MRI from 12/14/2024 was empirically reviewed, demonstrating posterior tibial tendinopathy, subcutaneous edema, CFL disruption, however arthritis. The exam is limited secondary to motion artifact. IMPRESSION: Right severe pes planovalgus deformity, stage III posterior tibial tendon dysfunction, equinus contracture PLAN: He wishes to continue with conservative measures. I have recommended lidocaine topical gel. I have discussed all treatment options with him, both conservative and operative. He will continue with his orthotics and his [place] brace. He wishes to follow up with me as needed if his symptoms change and/or if he wishes to discuss surgery. If he reaches a symptomatic tipping point, surgery would include a right triple hindfoot arthrodesis, tendo Achilles lengthening and peroneal lengthening/tenoto mies. I have discussed the nature and magnitude of such surgery with him today. He understands and agrees with this plan. All of his questions were answered. Risks include, but are not limited to, wound healing problems, deep infection, nerve/vessel injury, nonunion, malunion, symptomatic hardware, persistent pain, need for further surgery. The expected postoperative course was outlined in detail. The patient understands the nature and magnitude of this surgery and wishes to proceed. All questions were answered. [email or web address] Not available 01/24/2025 14:38:36 Plan of Treatment Reminders Order Date Submit Date Provider Last Modified By Organization Details Last Modified Time Details Appointments RECHECK 15 2024 09:15A Yuni Baum PA-C Not available Not available Not available Lab None recorded . Referral None recorded . Procedures None recorded . Surgeries None recorded . Imaging XR, ankle + foot - RM # 5 ---2V FOOT WB, 3V ANKLE WB right 2024 025 [facility] Office, [address] [facility] [place], [address], [address], 01/24/2025 15:51:34 XR, ankle, 3 or more view - RM.304 3 V OF THE R ANKLE ,WB [address] Office, [address], [place], [address], 08/07/2024 11:42:40 XR, foot, 2 view - RM.304 2 V OF THE R FOOT [address] Office, [address] [facility] [place], [address] [address], [place], [address], 08/07/2024 11:42:40 Medication Orders None recorded . Patient TargetsNo targets recorded. Patient InstructionsNo instructions recorded. Reason for Referral None Reported. Results Created Date Observation Date Name Description Value Unit Range Abnormal Flag Note LastModifiedBy Organization Detail LastModifiedTime 08/06/20 24 08/06/2024 XR, ankle , 3 or more view [email or web address]:/ [email or web address] ?Encry pted=s SinanAjayo YD8dLq bEUv6g %2BXZw aYqtaq 0bqfl% 2Fg9IQ a4ajBk vP9nXo QUaueC m3YtLR FvZlgJ JJ8mAn HZtai3 8c8678 AC0Kqa XyBV6a mKiQtr MwF INTERFACE [facility] [address], [place], [address], 08/06/2024 14:08:28 08/06/20 24 08/06/2024 XR, ankle , 3 or more view [email or web address] ?Encry pted=s hAaTro YD8dLq bEUv6g %2BXZw aYqtaq 0bqfl% 2Fg9IQ a4ajBk vP9nXo QUaueC m3YtLR FvZlgJ JJ8mAn HZtai3 3r0729 AC0Kqa XyBV6a mKiQtr MwF INTERFACE [facility] [address], [place], [address], 08/06/2024 14:08:30 08/06/20 24 08/06/2024 XR, foot, 2 view [email or web address] ?Encry pted=s hAaTro YD8dLq bEUv6g %2BXZw aYqtaq 0bqfl% 2Fg9IQ a4ajBk vP9nXo QUaueC m3YtLR FvZlg [facility] HZtai3 7k9564 AC0Kqa XyBV6a lKiQtr MwF INTERFACE [facility] [address], [place], [address], 08/06/2024 14:10:21 08/06/20 24 08/06/2024 XR, foot, 2 view [email or web address] ?Encry pted=s hAaTro YD8dLq bEUv6g %2BXZw aYqtaq 0bqfl% 2Fg9IQ a4ajBk vP9nXo QUaueC m3YtLR FvZlgJ JJ8mAn HZtai3 3h9576 AC0Kqa XyBV6a lKiQtr MwF INTERFACE [facility] [address] [facility] [address], [place], [address], 08/06/2024 14:10:23 01/25/20 25 01/24/2025 XR, ankle + foot [email or web address] ?Encry pted=s hAaTro YD8dLq bEUv6g %2BXZw aYqtaq 0bqfl% 2Fg9IQ a4ajBk vP9nXo QUaueC m3YtLR FvZlgJ JJ8mAn HZtai3 1l4715 AC0Kla nqNUaa lKiQtr MwF INTERFACE [facility] [address] [address], [place], [address], 01/24/2025 14:02:24 01/25/20 25 01/24/2025 XR, ankle + foot [email or web address]:/ [email or web address] ?Encry pted=s hAaTro YD8dLq bEUv6g %2BXZw aYqtaq 0bqfl% 2Fg9IQ a4ajBk vP9nXo QUaueC m3YtLR FvZlgJ JJ8mAn HZtai3 8a5942 AC0Kla nqNUaa lKiQtr MwF INTERFACE [facility] [address], [address], 01/24/2025 14:02:25 Result Notes Documentation Provider Name and Address Organization Details Recorded Time Xr, Ankle, 3 Or More View : [email or web address]? Encrypted=mxEqXofSF6iIfyI Uv6g%6RVAveNmire2psuu%2Fg 2DRw5ptWczD1eNoMLyzeVf4Tq QWHfOtgRAO2nLfDJxsz48n895 6QV3YslPcBR8jtKhAncZcJ Not Available [facility] 08/06/2024 14:08: 29 Xr, Ankle, 3 Or More View : [email or web address] Encrypted=fwAtDdeRD6iHcfS Uv6g%0RFRrrWdane5xkql%2Fg 6GZj6qjCmlD2kGhAKfttJu0Ye SVSrPhcPTF5oIoRCaud00n518 1NG6BjoSnJC8qfKlXoxRyD Not Available [facility] 08/06/2024 14:08: 31 Xr, Foot, 2 View : [email or web address] Encrypted=tsEfPaxYG7qJsrX Uv6g%7MJIstDefnd7lban%2Fg 7VZo2kmDmcR7wYyXJjcrFp9Xk HDCjQyvQXT1oWaQScpq07s294 8HJ8VrlVlVB1ghCfNmlPoM Not Available [facility] 08/06/2024 14:10: 22 Xr, Foot, 2 View : [email or web address] Encrypted=lwDvFuzTR7kOrnP Uv6g%5CQDpqXntrp7sfrq%2Fg 9LRr0gvHyfP0yRvCMkdcRk8Nf JQVqYlsVPD5bRiWJwea26w064 1QA2NuwHoJA1lrUgXcuVhI Not Available [facility] 08/06/2024 14:10: 24 Xr, Ankle + Foot : [email or web address] Encrypted=olTpUbhFP0pRjmG Uv6g%5WULuhTitzg9qjba%2Fg 0UHe3ypEnmF7oAeVAgkdEk5Tj CZUrSqjHEA4cCeFWhaq97t048 0EN4FdtxvLJhveTnFilTyL Not Available [facility] 01/24/2025 14:02: 25 Xr, Ankle + Foot : [email or web address] Encrypted=bcSoBfgZW7qPhiQ Uv6g%3HEPrkTnhrx4wtmj%2Fg 5ILv1fuOnaD8uHyPOjdfVx0Jw QOYjNlrWIY6eLaAAjkp37f105 3EQ3RueohMMvrvEhDeiEjJ Not Available [facility] 01/24/2025 14:02: 26 Problems Name Problem SNOMED Code Status Onset Date Resolution Date Notes Provider Name and Address Organization Details Recorded Time No complaints 858597295 Active Status : 'I'; Not Available [facility] 4 09:20:13 Acquired pes planus 318956294 Active 2024 Andres Prescott MD [address], [place], [address] , [facility] 5 14:41:28 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 Procedures Surgical History Date Name Laterality Status Provider Name and Address Organization Details Recorded Time 5 Knee Kenalog 40 1cc Injection, Bilateral completed ALEX Grubbs-C [address], [place], [address], [facility] 05/15/2025 07:43:59 5 Knee Kenalog 40 1cc Injection, Bilateral completed Delio Baum PA-C [address], [place], [address], [facility] 02/13/2025 07:27:42 4 Knee Kenalog 40 1cc Injection, Bilateral completed Delio Baum PA-C [address], [place], [address], [facility] 09/18/2024 13:48:36 4 Ankle Lidocaine 1% Injection, L/R completed Rossi Nash PA-C [address], [place], [address], [facility] 08/06/2024 15:14:40 4 Knee Kenalog 40 1cc Injection, Bilateral completed Delio Baum PA-C [address], [place], [address], [facility] 07/09/2024 07:49:19 4 Knee Kenalog 40 1cc Injection, Bilateral completed Delio Baum PA-C [address], [place], [address], [facility] 04/11/2024 07:46:50 4 Knee Kenalog 40 1cc Injection, Bilateral completed Delio Baum PA-C [address], [place], [address], [facility] 01/02/2024 07:33:29 Imaging Results None recorded. Procedure Notes None recorded. Medical Equipment None Reported. Allergies No known drug allergies Medications Name Sig Start Date Stop Date Status Note LastModified by Organization Details LastModified Time metformin 500 mg tablet TAKE 1 TABLET BY MOUTH TWICE DAILY active Not Available Not Available No t Available fluorouracil 5 % topical cream APPLY TO SPOT ON NOSE TWICE DAILY FOR TWO WEEKS active Not Available Not Available No t [...] Not Available Not Available No t Available finasteride 5 mg tablet TAKE 1 TAB(S) ORALLY ONCE DAILY 14 DAYS active Not Available Not Available No t [...] and Address Organization Details Last Updated DateTime 01/24/2025 175.26 cm 32.5 kg/m2 52355.32 g RUTH BASSETTDEN [facility] 01/24/2025 13:44:58 Date Recorded Body height Provider Name an d Address Organization Details Last Updated DateTime 02/13/2025 175.26 cm GOLDEN DOUGLASS [facility] 02/13/2025 08:53:44 Date Recorded Body height Provider Name an d Address Organization Details Last Updated DateTime 05/15/2025 175.26 cm GOLDEN DOUGLASS [facility] 05/15/2025 08:29:32 Date Recorded Body height Body mass index (BMI) Body weight Provider Name and Address Organization Details Last Updated DateTime 08/06/2024 175.26 cm 31.6 kg/m2 59639.77 g emilio alford [facility] 08/06/2024 14:09:02 Date Recorded Body height Provider Name an d Address Organization Details Last Updated DateTime 09/05/2024 175.26 cm GOLDEN DOUGLASS [facility] 09/05/2024 14:02:01 Social History None recorded. Functional Status None recorded. Mental Status None recorded. Family History Nothing Reported. Medical History Condition Response Allergies/Hayfever N Coronary Artery Disease N Anxiety/Depression N Breathing or lung disorders N Emphysema N Nerve Disorders N Thyroid Problems N COPD N Pacemaker N Anemia N Kidney/Bladder Problems N Vascular Disease N Heart Trouble N Heart Attack ([place]) N Gastrointestinal Disease N Cholesterol Y Diabetes Y Autoimmune disease N Inflammatory Joint disease N Bleeding Disorder N Orthotics N Arthritis N Seizures/Epilepsy N Blood Clot N AIDS/HIV N Congestive Heart Failure (CHF) N Acid Reflux (GERD) N Cancer N Stroke N Asthma N Circulation Problems N Peripheral Vascular Disease N Sleep Apnea N Hepatitis N Heart Disease N Rheumatoid Arthritis N Arrhythmia N Pulmonary Embolism N Headaches N Fibromyalgia N Hypertension Y Osteoporosis N Past Encounters Encounter ID Performer Location Encounter Start Date Encounter Closed Date Diagnosis/Indication Diagnosis SNOMED-CT Code Diagnosis ICD10 Code Diagnosis IMO Codes Diagnosis Note [id number] [facility] [address] [place] [address] 01/02/2024 09:20:00 01/02/2024 12:33:20 Osteoarthritis of left knee joint 6325385826 46480 M17.12 Osteoarthr itis of right knee joint 9177890743 09070 M17.11 [id number] [facility]ARY[facility] [address] [place] [address] 04/11/2024 08:49:08 05/02/2024 09:05:00 Osteoarthritis of left knee joint 1018045851 64098 M17.12 Osteoarthr itis of right knee joint 5871347154 92805 M17.11 [id number] MARYCARM[facility] [address] [place] [address] 07/09/2024 09:24:18 07/31/2024 09:06:58 Arthritis of right knee joint 7077247986 939334 M17.11 457181 Arthritis of left knee joint 9168018474 159247 M17.12 472413 [id number] MARYCARMEN Desir [address] [place] [address] 08/06/2024 13:30:02 08/28/2024 14:26:48 Pain in right foot 6873232310 14011 M79.671 [id number] MARYCARMEN Grubbs [address] [place] [address] 09/05/2024 13:53:58 09/25/2024 13:39:30 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 2053188572 M17.32 9111812 Osteoarthr itis of right knee joint 5968134010 66652 M17.11 [id number] MD COREY Trevino [facility] [address] [place] [address] 01/24/2025 13:34:59 01/24/2025 15:51:34 Acute ankle pain 4765333714 9105 M25.571 26427840 Acquired pes planus 2034 24049 M21.42 23123155 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 7642621076 336017 M76.822 [id number] MARYCARMEN [facility] [address] [place] [address] 02/13/2025 08:47:10 02/20/2025 14:07:29 Osteoarthritis of left knee joint 2799978131 60432 M17.12 7430502 Osteoarthr itis of right knee joint 4116263038 10430 M17.11 [id number] MARYCARMEN [facility] [address] [place] [address] 05/15/2025 08:25:50 05/27/2025 14:21:11 Osteoarthritis of left knee joint 4194010338 82719 M17.12 8054978 Osteoarthr itis of right knee joint 3012689158 76832 M17.11 [id number] Health Concerns Section Related Observation LastModified by Organization Detai ls LastModified Time None Recorded Concern Status LastModified by Organization Details LastModified Time None Recorded Advance Directives Directive None Recorded Payers Insurance Date Sequence Insurance Name Policy Number Policy [place] Covered Member ID [place] Member ID Guarantor Name 05/27/2025 1 [employer] - MED[employer]ARE ADVANTAGE PLAN (MEDICARE REPLACEMENT HMO) [id number] 3 Dav Corbin [id number] Dav Corbin Notes Date Note Type Note Provider Name and Address Organization Details Recorded Time 08/06/2024 text/html I am seeing the patient [...] right foot over time. 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 X-rays ordered, obtained and reviewed at [facility], a ve view weight bearing series of the [...] 3 months. Sooner if any issues arise._. [facility] speech recognition scientific editor software was used to create portions of this document. An attempt at proofreading has been made to minimize errors. Please call for corrections. .[email or web address] Nash PA-C [address] [place] [address] [address] [facility], [place], [address], [facility] 08/06/2024 15:15:02 09/05/2024 text/html I am seeing the patient today under the supervision of who was available but who did not see the patient. Chief Complaint The patient presents today for recheck of bilateral knee osteoarthritis. Is known to have knee arthritis treated conservatively to this point with 3 months relief of symptoms. Presents today for recheck secondary to increased knee pain. History of Present Illness Allergy list reviewed Medication list reviewed Past Medical/Surgical History Reviewed today, otherwise unchanged per intake sheet. Physical Findings General Appearance: Well developed. In no acute distress. Musculoskeletal System: Knee: General/bilateral: No laxity of the knee. Right Knee: Medial aspect was tender on palpation. No erythema. No warmth. Left Knee: Medial aspect was tender on palpation. No erythema. No warmth. Musculoskeletal Scales: General/bilateral: Mild effusion noted. Neurological: Oriented to time, place, and person. Gait And Stance: Normal. Psychiatric: Mood was appropriate to the affect. Left knee 0-120 degrees of flexion with discomfort. Right knee 0-120 degrees of flexion with discomfort. Assessment Osteoarthritis of knee -bilateral knees Plan More [...] continued conservative treatment. Delio Baum PA-C [address], [place], [address], [facility] 09/18/2024 13:48:56 01/24/2025 text/html ROS as noted in the HPI Andres Prescott MD [address], [place], [address], [facility] 01/24/2025 14:41:55 02/13/2025 text/html I am seeing the patient today under the supervision of who was available but who did not see the patient. Chief Complaint The patient presents today for recheck of bilateral knee osteoarthritis. Is known to have knee arthritis treated conservatively to this point with 3 months relief of symptoms. Presents today for recheck secondary to increased knee pain. History of Present Illness Allergy list reviewed Medication list reviewed Past Medical/Surgical History Reviewed today, otherwise unchanged per intake sheet. Physical Findings General Appearance: Well developed. In no acute distress. Musculoskeletal System: Knee: General/bilateral: No laxity of the knee. Right Knee: Medial aspect was tender on palpation. No erythema. No warmth. Left Knee: Medial aspect was tender on palpation. No erythema. No warmth. Musculoskeletal Scales: General/bilateral: Mild effusion noted. Neurological: Oriented to time, place, and person. Gait And Stance: Normal. Psychiatric: Mood was appropriate to the affect. Left knee 0-120 degrees of flexion with discomfort. Right knee 0-120 degrees of flexion with discomfort. Assessment Osteoarthritis of knee -bilateral knees Plan More [...] continued conservative treatment. Delio Baum PA-C [address] [facility] [address], [place], [address], [facility] 02/13/2025 09:15:19 05/15/2025 text/html I am seeing the patient today under the supervision of who was available but who did not see the patient. Chief Complaint The patient presents today for recheck of bilateral knee osteoarthritis. Is known to have knee arthritis treated conservatively to this point with 3 months relief of symptoms. Presents today for recheck secondary to increased knee pain. History of Present Illness Allergy list reviewed Medication list reviewed Past Medical/Surgical History Reviewed today, otherwise unchanged per intake sheet. Physical Findings General Appearance: Well developed. In no acute distress. Musculoskeletal System: Knee: General/bilateral: No laxity of the knee. Right Knee: Medial aspect was tender on palpation. No erythema. No warmth. Left Knee: Medial aspect was tender on palpation. No erythema. No warmth. Musculoskeletal Scales: General/bilateral: Mild effusion noted. Neurological: Oriented to time, place, and person. Gait And Stance: Normal. Psychiatric: Mood was appropriate to the affect. Left knee 0-120 degrees of flexion with discomfort. Right knee 0-120 degrees of flexion with discomfort. Assessment Osteoarthritis of knee -bilateral knees Plan More [...] continued conservative treatment. Delio Baum PA-C [address] [facility] [address], [place], [address], [facility] 05/15/2025 12:08:12
--- OUTSIDE RECORDS SUMMARY | 2025-06-20 14:58 | XMS_ITS | Clinical Summary ---
Author Organization [facility], Address [address] [place] [address] [place] [address] Phone Care Team Providers Care Merchandise Manager Name Role Phone Luciano Bowden MD Primary Care Provider [phone] Social History Tobacco Use Types Packs/Day Years [...] patient's age to complete this topic [place] [address] [place] [address] [facility] MCR Care Teams Merchandise Manager Relationship Specialty Start Date End Date Luciano Bowden MD [address] PCP - General Internal Medicine 02/06/24
== END 2025-06-20 13:57 | disposition home or self-care (01) ==
LOC: HO.HKAS 13:28
PROVIDERS: PCP Internal Medicine; Visit Provider Internal Medicine Nephrology
DX: N18.32 Chronic kidney disease, stage 3b (principal); I10 Essential (primary) hypertension; N28.1 Cyst of kidney, acquired
CPT/HCPCS: 99214

== ENCOUNTER → 2025-06-20 13:28 | Outpatient (BNVA) | payer MEDICARE, SELFPAY | PROVIDERS: PCP Internal Medicine; Visit Provider Internal Medicine Nephrology | DX: N18.32 Chronic kidney disease, stage 3b (principal); I10 Essential (primary) hypertension; N28.1 Cyst of kidney, acquired | CPT/HCPCS: 99212 ==